=== PATIENT | male | born 1960 | race Caucasian/White ===

== ENCOUNTER 2020-03-17 17:46 | Inpatient (IN) | payer MEDICAID, SELFPAY ==
--- NOTE | ~2020-03-17 | XR_ITS ---
EXAMINATION: XR chest 2V DATE: 03/17/2020 20:40 INDICATION: Sepsis. TECHNIQUE: PA and lateral views of the chest were obtained. COMPARISON: None FINDINGS: Ossified nodules in the right lower lung zone and calcified right hilar lymph nodes consistent with o ld granulomatous disease. No other airspace opacities, pulmonary edema, pleural effusion or pneumotho rax. The cardiomediastinal silhouette is normal. Mild thoracic spondylosis with mild anterior wedging of a few lower thoracic vertebral bodies. IMPRESSION: 1. No acute cardiopulmonary disease. Reviewed, dictated and finalized at location A.
--- NOTE | ~2020-03-17 | XR_ITS ---
EXAMINATION: XR foot LT min 3V DATE: 03/17/2020 20:41 INDICATION: Erythema, swelling and tunneling foot ulcer. TECHNIQUE: Dorsoplantar, two oblique and lateral views of the left foot were obtained. COMPARISON: None. FINDINGS: Alignment is normal. No fracture. Mild osteoarthritis at multiple tarsal metatarsal, metatarsophalang eal and interphalangeal joints. No cortical erosions or periosteal reaction. Moderate-sized Achilles and plantar calcaneal spurs with few additional scattered enthesophytes including at the tip of the l ateral malleolus and base of the fifth metatarsal. Diffuse soft tissue swelling throughout the left f oot. No radiopaque foreign bodies or soft tissue gas. IMPRESSION: 1. 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 Reviewed, dictated and finalized at location A. IMPRESSION: 1. Scattered degenerative changes including mild polyarticular osteoarthritis i n the fore and midfoot and scattered enthesophytes.
[2020-03-17 18:52] VITALS: BP 158/100; PULSE 117; RESP 16; TEMP 36.3; O2SAT 100
[2020-03-17 19:15] LABS: Basophils Absolute Auto 0.1 K/mm3 (0.0-0.1); Basophils Percent Auto 0.4 % (0.2-1.2); Eosinophils Absolute Auto 0.1 K/mm3 (0-0.3); Eosinophils Percent Auto 0.7 % (0-4.4); Hematocrit 42.2 % (42.0-52.0); Hemoglobin 14.5 g/dL (14.0-18.0); Immature Granulocyte Absolute 0.05 K/mm3 (0.00-0.031); Immature Granulocyte Percent A 0.4 % (0-0.5); Lymphocytes Absolute Auto 0.85 K/mm3 (0.9-3.2); Lymphocytes Percent Auto 7.5 % (18.3-44.2); Mean Corpuscular HGB Conc 34.4 g/dl (32-36); Mean Corpuscular Hemoglobin 28.2 pg (26-34); Mean Corpuscular Volume 81.9 fl (80-100); Mean Platelet Volume 10.2 fl (7.4-10.4); Monocytes Absolute Auto 1.1 K/mm3 (0.1-0.6); Monocytes Percent Auto 10.1 % (2.6-8.5); Neutrophils Absolute Auto 9.1 K/mm3 (1.3-6.7); Neutrophils Percent Auto 80.9 % (45.5-73.1); Platelet Count Result 278 k/mm3 (150-375); Red Blood Count 5.15 M/mm3 (4.6-6.20); White Blood Count 11.3 K/mm3 (4.5-10.0)
[2020-03-17 19:38] LABS: Lactic Acid Reflex 1.4 mmol/L (0.7-2.1)
[2020-03-17 19:59] LABS: Alanine Aminotransferase 28 U/L (4-50); Albumin Level 4.1 g/dL (3.5-5.1); Alkaline Phosphatase 93 U/L (38-126); Anion Gap 10 mmol/L (8-16); Aspartate Amino Transferase 34 U/L (17-59); Bilirubin,Total 0.8 mg/dL (0.2-1.3); Blood Urea Nitrogen 15 mg/dL (9-20); CRP 16.4 mg/dL (<1.0); Calcium 9.4 mg/dL (8.4-10.2); Carbon Dioxide 29 mmol/L (22-30); Chloride 96 mmol/L (98-107); Estimated CRCL calculation 129 ml/min; Estimated Glomerular Filt Rate > 60; Glucose 301 mg/dL (75-110); Sodium 135 mmol/L (137-145)
[2020-03-17 23:00] VITALS: BP 154/70; PULSE 105; RESP 19; O2SAT 96
[2020-03-17 23:01] LABS: INR 1.2; Prothrombin Time 14.4 Seconds (11.1-14.7)
[2020-03-17 23:02] LABS: Partial Thromboplastin Time 32.7 SECONDS (22.3-36.8)
[2020-03-18] VITALS (18 sets, daily range): BP systolic 132–186; BP diastolic 81–99; PULSE 85–117; RESP 13–23; TEMP 36–37; O2SAT 96–100
--- NOTE | 2020-03-18 01:18 | ED.WOUNDLAC ---
HPI - Wound/Laceration General Chief Complaint: Wound/Laceration Stated Complaint: tunneling foot ulcer Time Seen by Provider: 03/18/20 01:15 Source: RN notes reviewed History of Present Illness HPI narrative: Patient presents emergency department from home for left foot wound. Patient went to the urgent care today and was referred to the ER for further evaluation states it is been present for approximately the past 1 month and progressively worsened and went to the urgent care today because he began to have swelling of the third toe and redness of the foot. Patient states is been numerous years before he went to a physician and is unsure if he is a diabetic. He denies any fevers or chills chest pain shortness of breath abdominal pain nausea vomiting or any other symptoms Related Data Allergies Allergy/AdvReac Type Severity Reaction Status Date / Time Penicillins Allergy Mild Verified 11/04/10 14:01 Review of Systems Review of Systems: Narrative: Gen.: Denies fevers or chills ENT: Denies congestion Respiratory: Denies shortness of breath or cough CV: Denies chest pain or palpitations GI: Denies abdominal pain nausea, emesis or diarrhea denies burning, urgency, frequency or hematuria Musculoskeletal: Denies back pain or muscle pain Neuro: Denies numbness, tingling, weakness or focal weakness Skin: See HPI Except as documented, all other systems reviewed and negative PMFSH Past Medical History Medical History (Updated 03/18/20 @ 01:36 by Amando Alfaro DO) Patient denies significant medical history Family History Family History (Updated 02/14/14 @ 07:13 by DOCTOR UNKNOWN) Sibling Family history of gallbladder disease Father Family history of chronic obstructive pulmonary disease Mother Family history of heart disease in male family member before age 55 Other Diabetes mellitus Hypertension Social History Social History (Updated 03/18/20 @ 01:19 by Amando Alfaro DO) Smoking status: Never smoker Alcohol intake: current Gender identity (if verbalized by the patient): Male Exam Narrative: Exam Narrative: APPEARANCE: No acute distress, nontoxic, resting in bed EYES: EOMI HEENT: Normocephalic, atraumatic, OMM RESPIRATORY: No respiratory distress Clear to auscultation bilaterally with no rhonchi wheezing or rales. CARDIOVASCULAR: Regular rate and rhythm without murmurs rubs or gallops. ABDOMINAL: Soft, nontender, nondistended, no rebound or guarding MUSCULOSKELETAl: Moves all extremities. No clubbing, cyanosis or edema. Right dorsalis pedis pulse 2+ NEURO: Awake and alert. Following commands, speech normal, no focal deficits SKIN:: Warm, dry. Left foot has a large ulcerated wound over the base of the foot with some purulent drainage there is surrounding erythema and erythema up into the dorsal aspect of the foot does not extend to the ankle the left third toe is diffusely swollen and erythematous PSYCHIATRIC: Normal affect/mood, Course Course Emergency Course: Discussed with Dr. Gerard presentation work-up. Agrees with admission at this time Discussed with Dr. Castillo presentation work-up. Agrees consult this time Discussed with patient and family results of workup and diagnosis. Discussed need for admission. Patient and family understand and agree to current treatment plan Vital Signs Vital signs: Vital Signs Temperature 97.4 F L 03/17/20 18:52 Pulse Rate 117 H 03/17/20 18:52 Respiratory Rate 16 03/17/20 18:52 Blood Pressure 158/100 H 03/17/20 18:52 Pulse Oximetry 100 03/17/20 18:52 Temperature 98.3 F 03/18/20 01:20 Pulse Rate 117 H 03/18/20 01:20 Respiratory Rate 20 03/18/20 01:20 Blood Pressure 141/87 H 03/18/20 01:20 Pulse Oximetry 98 03/18/20 01:20 MDM - Wound/Laceration Lab Data Result diagrams: 03/17/20 18:57 03/17/20 18:57 Labs: Lab Results 03/17/20 03/17/20 03/17/20 Range/Units 18:57 18:57 18:57
[2020-03-18] MEDS: SODIUM CHLORIDE 0.9% IV 1,000 ML 999 ML IV CONT (01:37)
--- NOTE | 2020-03-18 02:23 | ADMGEN ---
This patient, Darin Campos, was admitted to Medical Room 247-. Patient/family oriented to hospital policies and general routines including ID bracelet, bed and alarms, visiting hours, pain management, procedures, bathroom and other care routines, personal items, smoking policy, room service/diet, and visiting hours. Valuables list has been completed. Information on how to activate the Rapid Response Team has been discussed. Patient/Family are encouraged to report perceived risks to care and to ask questions if they do not understand what they are told or what they should do.
[2020-03-18 02:29] LABS: Add Urine Microscopic? YES; Appearance Urine Clear (Clear); Bilirubin Urine Negative (Negative); Blood Urine Negative (Negative); Color Urine Yellow (Yellow); Glucose Urine UA 3+ mg/dL (Negative); Ketones Urine 1+ mg/dL (Negative); Leukocyte Esterase Ur Negative LEU/UL (Negative); Mucus Urine Rare /lpf; Nitrate Urine Negative (Negative); Protein Urine 1+ mg/dL (Negative); RBC Urine 0-2 /hpf (0-2); Specific Grav Ur 1.024 (1.001-1.035); Squamous Epithelial Cell Urine Rare /hpf (Few); WBC Urine 0-3 /hpf
[2020-03-18] MEDS: SODIUM CHLORIDE 0.9% IV 1,000 ML 125 ML IV CONT ×2 (05:16→20:49)
[2020-03-18 07:54] LABS: Glucose Point of Care 300 (65-105)
[2020-03-18] MEDS: INSULIN ASPART (*BKC) 100 UNITS/ML SUB-Q ×3 (08:38→18:15)
[2020-03-18 09:15] LABS: Basophils Percent Auto 0.3 % (0.2-1.2); Eosinophils Absolute Auto 0.1 K/mm3 (0-0.3); Eosinophils Percent Auto 0.8 % (0-4.4); Hematocrit 36.1 % (42.0-52.0); Hemoglobin 12.5 g/dL (14.0-18.0); Immature Granulocyte Absolute 0.06 K/mm3 (0.00-0.031); Immature Granulocyte Percent A 0.6 % (0-0.5); Lymphocytes Absolute Auto 1.18 K/mm3 (0.9-3.2); Lymphocytes Percent Auto 11.3 % (18.3-44.2); Mean Corpuscular HGB Conc 34.6 g/dl (32-36); Mean Corpuscular Hemoglobin 28.4 pg (26-34); Mean Platelet Volume 10.6 fl (7.4-10.4); Monocytes Absolute Auto 1.4 K/mm3 (0.1-0.6); Monocytes Percent Auto 13.2 % (2.6-8.5); Neutrophils Absolute Auto 7.7 K/mm3 (1.3-6.7); Neutrophils Percent Auto 73.8 % (45.5-73.1); Platelet Count Result 237 k/mm3 (150-375); White Blood Count 10.5 K/mm3 (4.5-10.0)
[2020-03-18 09:19] LABS: Anion Gap 5 mmol/L (8-16); Blood Urea Nitrogen 11 mg/dL (9-20); Calcium 8.8 mg/dL (8.4-10.2); Carbon Dioxide 31 mmol/L (22-30); Chloride 98 mmol/L (98-107); Estimated CRCL calculation 129 ml/min; Estimated Glomerular Filt Rate > 60; Glucose 307 mg/dL (75-110); Potassium 3.8 mmol/L (3.4-5.0); Sodium 134 mmol/L (137-145)
--- NOTE | 2020-03-18 09:20 | PM.IMHP ---
H&P: HPI History of Present Illness Date/Time: 03/18/20 09:20 Chief complaint: Left foot cellulitis, left foot wound Narrative: Darin Campos is a 59 year old male With no chronic medical history, has not seen a doctor he in about 13 years, who presented to the emergency room with increased redness, swelling, drainage to his left foot. Patient states he has numbness and tingling to bilateral feet, has never been diagnosed with diabetes before. he is unsure if he had stepped on something or what happened to the bottom of his foot. About 2 months ago he noticed a hole in the bottom of his left foot in began placing a bandage over it daily. About 1 month ago he noticed some thickening to the skin around the whole, some clear drainage, and continue with some home therapy. Then about 2 weeks ago he noticed increased redness, swelling, foul odor, drainage to his left foot as well as 3rd toe. he finally decided to come into the hospital last night. He denies any fevers, chills, chest pain, shortness of breath, cough, nausea, vomiting, abdominal pain, diarrhea, constipation, calf pain, weakness, fatigue, lightheadedness, dizziness, syncope, change in urinary symptoms, or any other symptoms at this time. Initial vitals showed temperature of 97.4?, blood pressure 158/100, heart rate tachycardic at 117, normal respirations and oxygenation 100% on room air. Initial labs showed leukocytosis at 11,000, with a left shift, normal coag panel, slight hyponatremia 134, glucose was 300 on arrival. Hemoglobin A1c is 10.6%. Normal lactic. CRP elevated at 16.4. Urine shows 3+ glucose, 1+ ketones, 1+ protein otherwise no signs of acute UTI. Foot XR showed Scattered degenerative changes including mild polyarticular osteoarthritis in the fore and midfoot and scattered enthesophytes. Patient was admitted into the hospital for IV antibiotics, for cellulitis and diabetic foot wound. He has a consult to surgery for further evaluation. Code status: full code POA: sonOtoniel PCP: None Review of Systems Review of Systems: All systems reviewed & are unremarkable except as noted in HPI and below PMFSH Past Medical History Medical History (Updated 03/18/20 @ 10:14 by Shruti Mathur PA-C) Patient denies significant medical history Surgical History Surgical History (Updated 03/18/20 @ 10:14 by Shruti Mathur PA-C) Hx laparoscopic cholecystectomy Family History Family History (Updated 03/18/20 @ 10:14 by Shruti Mathur PA-C) Sibling Family history of gallbladder disease Father Family history of chronic obstructive pulmonary disease Diabetes mellitus Mother Family history of heart disease in male family member before age 55 Diabetes mellitus Hypertension Heart disease Social History Social History (Updated 03/18/20 @ 10:15 by Shruti Mathur PA-C) Smoking status: Never smoker Alcohol intake: never Substance use: never Substance use type: does not use Living arrangements: alone Additional living arrangements comments: Lives in [place]. Never . 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 Gender identity (if verbalized by the patient): Male Spiritual care concerns: No Meds Home Medications and Allergies Home Medications Medication Instructions Recorded Confirmed Type No Home Medications 03/18/20 03/18/20 History Allergies Allergy/AdvReac Type Severity Reaction Status Date / Time Penicillins Allergy Mild Verified 11/04/10 14:01 Vital Signs Vital Signs - 24 hr 03/17/20 18:52 03/17/20 23:00 03/18/20 01:20 Temperature 97.4 F L 98.3 F Pulse Rate 117 H 105 H 117 H Respiratory Rate 16 19 20 Blood Pressure 158/100 H 154/70 H 141/87 H Pulse Oximetry 100 96 98 03/18/20 01:41 03/18/20 01:59 03/18/20 02:54 Temperature 98.3 F 98.6 F Pulse Rate 108 H 108 H 101 H Respiratory Rate 18 16
--- NOTE | 2020-03-18 09:48 | PM.CNGS ---
Assessment and Plan Assessment and plan (1) Diabetic foot ulcer: Qualifiers: Diabetic foot ulcer location: toe Diabetes mellitus type: type 2 Laterality: left Non-pressure ulcer stage: with fat layer exposed Qualified Code(s): E11.621 - Type 2 diabetes mellitus with foot ulcer; L97.522 - Non-pressure chronic ulcer of other part of left foot with fat layer exposed Code(s): E11.621 - Type 2 diabetes mellitus with foot ulcer; L97.509 - Non-pressure chronic ulcer of other part of unspecified foot with unspecified severity Status: Acute Assessment and Plan: patient has multiple ulcers along the left foot including a 3rd toe ulcer and plantar surface of the forefoot ulcer. I have recommended debridement left diabetic foot ulcers under anesthesia in the operating room. He will require some wound care and possibly a boot to prevent weight-bearing along the forefoot. 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 I discussed with patient that if toe ulcer is more complicated, he could eventually require amputation. Will plan to proceed with surgery today. Patient will be kept NPO and plans for surgery. He has also been started on broad-spectrum IV antibiotics. (2) Cellulitis of foot, left: Code(s): L03.116 - Cellulitis of left lower limb Status: Acute History of Present Illness Consult details Consult date: 03/18/20 Reason for consult: wound care Requesting physician: Amando Alfaro DO Narrative: This is a 59-year-old man who presented to the emergency department last night with a worsening foot infection. He has noticed a wound on his left foot for the past couple months. He has not sought medical attention for this and has been applying bandages on his own at home. He does not routinely see a doctor. He denies any prior history of wounds like this in the past. He does have some signs of peripheral neuropathy as he does not have a whole lot of feeling in both feet. He has never been diagnosed with diabetes before, but his sugars are significantly elevated here in the hospital. He does state that he has been urinating a lot lately and he is thirsty a lot. He denies any history of peripheral vascular disease or heart problems. He denies any fevers or chills. He has noticed that there is redness around his toes and this has been extending up around his foot and ankle. He was having a significant amount of pain in his foot, but this is less today. Review of Systems Review of Systems: All systems reviewed & are unremarkable except as noted in HPI and below Eyes: Eyes: Denies change in vision ENT: Denies hearing loss, Denies neck pain and Denies sore throat Cardiovascular: Cardiovascular: Denies chest pain and Denies dyspnea Respiratory: Respiratory: Denies cough, Denies dyspnea and Denies wheezing Genitourinary: Genitourinary: Denies hematuria and Denies dysuria Musculoskeletal: Musculoskeletal: Denies arthralgias, Denies joint swelling and Denies neck pain Integumentary/Breasts: Skin/Breast: Reports as per HPI Endocrine: Endocrine: Reports polydipsia and Reports polyuria Allergic/Immunologic: Allergic/Immunologic: Denies wheezing PMFSH Past Medical History Medical History Patient denies significant medical history Family History Family History Sibling Family history of gallbladder disease Father Family history of chronic obstructive pulmonary disease Diabetes mellitus Mother Family history of heart disease in male family member before age 55 Diabetes mellitus Hypertension Social History Social History Smoking status: Never smoker Alcohol intake: never Substance use: never Substance use type: does not use Gender identity (if verbalized by the patient): Male Spi
[2020-03-18 09:54] LABS: Hemoglobin A1C 10.6 % (<5.7)
[2020-03-18 11:30] LABS: Glucose Point of Care 290 (65-105)
--- NOTE | 2020-03-18 12:10 | PC.NURSE ---
Patient to OR per bed. 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
[2020-03-18] MEDS: LACTATED RINGERS 1,000 ML 30 ML IV CONT ×2 (12:20→13:41)
--- NOTE | 2020-03-18 12:31 | WPDHPUPDATE1 ---
History and Physical Update Update Date/Time: 03/18/20 12:31 History and Physical has been reviewed, including an updated exam of the patient. There are NO changes in the patient's condition. Risks, benefits, and alternatives have been discussed and questions answered. Patient agrees to proceed with procedure.
[2020-03-18 12:32] LABS: CRP 16.3 mg/dL (<1.0)
--- NOTE | 2020-03-18 12:40 | WPDANESEPPF ---
Anes - Initial Pre Proc Eval Procedure: Operation Date: 03/18/20 14:00 Proposed Procedures p Debridement Left Foot Diabetic Ulcer(Left) - Parish Castillo DO Date/Time: 03/18/20 12:40 Surgeon: Shruti Mathur PA-C Pre Op Diagnosis: Left foot cellulitis, left foot wound Patient Data Age: 59 Gender: M Height: 5 ft 7 in Weight: 129 kg Last Vital Signs Temp 36.3 C L 03/18/20 10:15 Pulse 89 03/18/20 10:15 Resp 18 03/18/20 10:15 BP 163/96 H 03/18/20 10:15 Pulse Ox 99 03/18/20 10:15 Allergies Allergy/AdvReac Type Severity Reaction Status Date / Time Penicillins Allergy Mild Verified 11/04/10 14:01 Home Medications Medication Instructions Recorded Confirmed Type No Home Medications 03/18/20 03/18/20 History Laboratory Tests 03/17/20 03/17/20 03/17/20 18:57 18:57 18:57 WBC 11.3 K/mm3 H K/mm3 (4.5-10.0) RBC 5.15 M/mm3 M/mm3 (4.6-6.20) Hgb 14.5 g/dL g/dL (14.0-18.0) Hct 42.2 % % (42.0-52.0) MCV 81.9 fl fl (80-100) MCH 28.2 pg pg (26-34) MCHC 34.4 g/dl g/dl (32-36) RDW 13.0 % % (11.5-14.5) Plt Count 278 k/mm3 k/mm3 (150-375) MPV 10.2 fl fl (7.4-10.4) Immature Gran % (Auto) 0.4 % % (0-0.5) Neut % (Auto) 80.9 % H % (45.5-73.1) Lymph % (Auto) 7.5 % L % (18.3-44.2) [place] % (Auto) 10.1 % H % (2.6-8.5) Eos % (Auto) 0.7 % % (0-4.4) Baso % (Auto) 0.4 % % (0.2-1.2) Lymph # (Auto) 0.85 K/mm3 L K/mm3 (0.9-3.2) [place] # (Auto) 1.1 K/mm3 H K/mm3 (0.1-0.6) Eos # (Auto) 0.1 K/mm3 K/mm3 (0-0.3) Baso # (Auto) 0.1 K/mm3 K/mm3 (0.0-0.1) Abs Immat Gran (auto) 0.05 K/mm3 H K/mm3 (0.00-0.031) Absolute Neuts (auto) 9.1 K/mm3 H K/mm3 (1.3-6.7) Absolute Nucleated RBC 0.0 K/mm3 K/mm3 (0.0-0.012) Nucleated RBC % 0.0 % % (0.0-0.2) PT INR APTT Sodium 135 mmol/L L mmol/L (137-145) Potassium 4.0 mmol/L mmol/L (3.4-5.0) Chloride 96 mmol/L L mmol/L (98-107) Carbon Dioxide 29 mmol/L mmol/L (22-30) Anion Gap 10 mmol/L mmol/L (8-16) BUN 15 mg/dL mg/dL (9-20) Creatinine 0.70 mg/dL mg/dL (0.7-1.3) Estim Creat Clear Calc 129 ml/min ml/min Estimated GFR > 60 (59 - ) Glucose 301 mg/dL H mg/dL (75-110) POC Capillary Glucose Hemoglobin A1c Lactic Acid 1.4 mmol/L mmol/L (0.7-2.1) Calcium 9.4 mg/dL mg/dL (8.4-10.2) Total Bilirubin 0.8 mg/dL mg/dL (0.2-1.3) AST 34 U/L U/L (17-59) ALT 28 U/L U/L (4-50) Alkaline Phosphatase 93 U/L U/L (38-126) C-Reactive Protein 16.4 mg/dL H mg/dL (<1.0) Total Protein 9.0 g/dL H g/dL (6.3-8.2) Albumin 4.1 g/dL g/dL (3.5-5.1) Urine Color Urine Appearance Urine pH Ur Specific [place] Urine Protein Urine Glucose (UA) Urine Ketones Ur Blood (Man) Urine Nitrate Urine Bilirubin Urine Urobilinogen Leukocyte Esterase Rfl Urine RBC Urine WBC Ur Squamous Epith Cells Urine Mucus 03/17/20 03/18/20 03/18/20 22:39 02:06 07:50 WBC RBC Hgb Hct MCV MCH MCHC RDW Plt Count MPV Immature Gran % (Auto) Neut % (Auto) Lymph % (Auto) [place] % (Auto) Eos % (Auto) Baso % (Auto) Lymph # (Auto) [place] # (Auto) Eos # (Auto) Baso # (
--- NOTE | 2020-03-18 13:30 | P.OP_ITS ---
Procedure Note - Detailed Date of procedure: 03/18/20 Pre-op diagnosis: Left foot cellulitis, left foot wound Post-op diagnosis: same Procedure performed: Sharp excisional debridement of left plantar foot ulcer including skin, fat, and muscle/tendon measuring 4cm x 4cm Description of procedure: * Procedure as well as risks, benefits, and alternatives were discussed with the patient. Written consent was obtained and placed in chart prior to procedure. Patient was brought back to surgical suite. Time-out was done to confirm patient and procedure. General anesthesia was administered by the Anesthesia Department. His left foot was prepped and draped in sterile fashion using Betadine prep. A 15 blade scalpel was used to excise some of the tissue around the left plantar foot wound. The tissue was debrided back to healthy bleeding tissue. The wound appeared to track deep all the way to tendon. After debriding the wound, hemostasis was achieved with electrocautery. The total width of the wound measured 4 cm x 4 cm. The patient also had swelling of his 3rd digit. An incision was made over the medial side of the 3rd digit using a 15 blade scalpel. There did not appear to be any purulence fluid draining from this area. Hemostasis was then achieved with electrocautery. No further infected or necrotic tissue was identified. The wound on the plantar surface was then packed with half-inch iodoform gauze. Xeroform gauze was applied followed by 4 x 4 gauze, Kerlix roll, and tape. Patient was awakened from anesthesia, extubated, and transferred to recovery. [facility] Surgeon: Parish Castillo DO Estimated blood loss (mL): 5 Drains: No Packing: Yes (1/2 iodoform gauze) Pathology: none sent Complications: No immediate complications Condition: stable Disposition: floor Findings: This is a 59-year-old man who presented to the emergency department with a complicated left foot wound. He had been experiencing a wound on his foot for the past 2 months, but recently this worsen. He has not sought medical attention prior to this. He is also a newly diagnosed diabetic and has not been on any prior treatment for hyperglycemia. A deep wound was identified on the plantar surface of his 3rd metatarsal he also had significant swelling of his 3rd toe. Discussions were made with the patient about his treatment options, and decision was made to proceed with debridement of left foot ulcers. Sharp excisional debridement was performed using a 15 blade scalpel. The patient had a significant amount of callus formation around the wound on his plantar surface of his 3rd metatarsal. Sharp debridement was performed of the callus and necrotic tissue along the wound bed. This included skin and subcu fat and some muscle and tendon. The wound was deep enough that there did appear to be some exposed tendon, but there did not appear to be definite signs of exposed bone. There was also a callus along the 1st metatarsal with early signs of an ulcer developing. This was sharply excised also using a 15 blade scalpel. The total area of debridement along the plantar surface of the foot measured 4 cm x 4 cm. His 3rd toe was erythematous and swollen. An incision was made over the medial portion of his 3rd toe using a 15 blade scalpel, but no purulence fluid was drained. Hemostasis was achieved and dressings were applied. No specimens were obtained for pathology.
[2020-03-18 13:38] LABS: Glucose Point of Care 266 (65-105)
[2020-03-18] MEDS: INSULIN HUMAN REGULAR (*BKC) 100 UNITS/ML 8 UNITS SUB-Q (13:58)
--- NOTE | 2020-03-18 15:01 | PC.NURSE ---
Return from OR per bed.
[2020-03-18 16:20] LABS: Glucose Point of Care 270 (65-105)
[2020-03-18 19:33] LABS: Glucose Point of Care 288 (65-105)
[2020-03-18] MEDS: INSULIN GLARGINE (*BKC) 100 UNITS/ML 15 UNITS SUB-Q (20:59)
[2020-03-18 21:30] LABS: Glucose Point of Care 326 (65-105)
[2020-03-19 00:37] VITALS: BP 155/92; PULSE 89; RESP 20; TEMP 36.3; O2SAT 97
[2020-03-19] MEDS: guaiFENesin/DEXTROMETHORPHAN 10 ML UDC 5 ML PO ×2 (01:34→19:14)
[2020-03-19 02:58] LABS: Vancomycin Trough 11.5 ug/mL (10.0-20.0)
[2020-03-19 04:37] VITALS: BP 149/78; PULSE 74; RESP 20; TEMP 36.1; O2SAT 99
[2020-03-19] MEDS: SODIUM CHLORIDE 0.9% IV 1,000 ML 125 ML IV CONT (06:03)
[2020-03-19 06:33] LABS: Basophils Percent Auto 0.3 % (0.2-1.2); Eosinophils Percent Auto 0.1 % (0-4.4); Hematocrit 35.1 % (42.0-52.0); Immature Granulocyte Absolute 0.05 K/mm3 (0.00-0.031); Immature Granulocyte Percent A 0.5 % (0-0.5); Lymphocytes Percent Auto 12.8 % (18.3-44.2); Mean Corpuscular HGB Conc 34.2 g/dl (32-36); Mean Corpuscular Hemoglobin 28.1 pg (26-34); Mean Corpuscular Volume 82.2 fl (80-100); Mean Platelet Volume 10.8 fl (7.4-10.4); Monocytes Percent Auto 10.3 % (2.6-8.5); Neutrophils Absolute Auto 7.1 K/mm3 (1.3-6.7); Platelet Count Result 254 k/mm3 (150-375); Red Blood Count 4.27 M/mm3 (4.6-6.20); Red Cell Distribution Width 12.8 % (11.5-14.5); White Blood Count 9.4 K/mm3 (4.5-10.0)
[2020-03-19 06:41] LABS: Anion Gap 8 mmol/L (8-16); Blood Urea Nitrogen 12 mg/dL (9-20); Calcium 8.5 mg/dL (8.4-10.2); Carbon Dioxide 26 mmol/L (22-30); Chloride 101 mmol/L (98-107); Cholesterol 103 mg/dL (0-200); Estimated CRCL calculation 149 ml/min; Estimated Glomerular Filt Rate > 60; Glucose 298 mg/dL (75-110); HDL Direct 29 mg/dL; Potassium 3.8 mmol/L (3.4-5.0); Sodium 135 mmol/L (137-145); Triglycerides 96 mg/dL (<150)
[2020-03-19 06:48] LABS: LDL Cholesterol Direct 58 mg/dL
[2020-03-19 06:51] LABS: CRP 13.8 mg/dL (<1.0)
[2020-03-19 07:43] LABS: Glucose Point of Care 256 (65-105)
[2020-03-19] MEDS: INSULIN ASPART (*BKC) 100 UNITS/ML SUB-Q ×2 (07:56→11:57)
[2020-03-19] MEDS: ENOXAPARIN 40 MG/0.4 ML SYRINGE SUB-Q (07:59)
[2020-03-19 08:37] VITALS: BP 131/68; PULSE 81; RESP 15; TEMP 36.2; O2SAT 100
[2020-03-19] MEDS: LOSARTAN POTASSIUM 50 MG TABLET PO (09:07)
[2020-03-19] MEDS: metFORMIN HCL 500 MG TABLET PO ×2 (09:07→16:52)
--- NOTE | 2020-03-19 11:06 | PM.IMPN ---
Progress Note: A&P Assessment and Plan (1) Diabetic foot ulcer: Qualifiers: Diabetic foot ulcer location: toe Diabetes mellitus type: type 2 Laterality: left Non-pressure ulcer stage: with fat layer exposed Qualified Code(s): E11.621 - Type 2 diabetes mellitus with foot ulcer; L97.522 - Non-pressure chronic ulcer of other part of left foot with fat layer exposed Code(s): E11.621 - Type 2 diabetes mellitus with foot ulcer; L97.509 - Non-pressure chronic ulcer of other part of unspecified foot with unspecified severity Status: Acute Assessment and Plan: had wound to his distal left foot for 2 months that was left untreated without follow-up. Now with worsening erythema, edema, warmth to plantar, dorsal aspect of foot as well as 3rd phalange. patient was started on broad-spectrum antibiotics with IV Primaxin and vancomycin due to new onset diabetes blood cultures show no growth at this time and wound cultures show moderate WBCs, and gram positive cocci in chains and mixed bacteria iglesia And pending final results surgery took him to the OR for sharp excisional debridement of left plantar foot ulcer including skin, fat, and muscle/tendon measuring 4cm x 4cm Talked to Infectious Disease, [place] about consult and antibiotic recommendations and he will consult. Awaiting recommendations. Continue monitoring patient's symptoms, pain control, monitoring of blood and wound cultures. (2) Cellulitis of foot, left: Code(s): L03.116 - Cellulitis of left lower limb Status: Acute Assessment and Plan: See above. (3) Diabetes mellitus, new onset: Code(s): E11.9 - Type 2 diabetes mellitus without complications Status: Inactive Assessment and Plan: New onset diabetes with a hemoglobin A1c of 10.6%. Patient also having symptoms of neuropathy. Will start him on sliding scale insulin Will increase Lantus to 20 Units tonight Started Metformin 500 mg BID art educator and dietitian were consulted continue monitoring glucose ACHS. sliding scale insulin. hypoglycemic protocol in place. (4) Elevated blood pressure reading: Code(s): R03.0 - Elevated blood-pressure reading, without diagnosis of hypertension Status: Acute Assessment and Plan: Patient's blood pressure has been elevated since arrival. He has never been diagnosed with hypertension in the past. BP still elevated 150-160's systolic. Started Losartan 50 mg daily. Continue monitoring BP. (5) Venous stasis of both lower extremities: Code(s): I87.8 - Other specified disorders of veins Status: Acute Assessment and Plan: appears to have venous stasis changes to bilateral lower extremities. Good pulses palpated. fasting lipid panel showed his total cholesterol, triglycerides, LDL and HDL were all within normal limits. Time Spent With Patient Time with patient: 25 - 35 minutes Subjective Date/time seen: 03/19/20 11:06 Interval history: Date of service 03/19/2020: patient states he is feeling much better today after his debridement surgery yesterday. he is eating hearing any issues. He has been walking to and from the bathroom without any complications. States his leg swelling has gone down to the left side. he reports a dry cough, which is caused by some postnasal drip and intermittent phlegm production, that he states is worse at night when he goes to sleep. He states he gets this every year and the same time. He denies any chest pain, shortness of breath, fever, chills, Nausea, vomiting, abdominal pain, diarrhea, leg swelling, calf pain or any other symptoms at this time. Review of Systems Review of Systems: Kvng
--- NOTE | 2020-03-19 11:28 | PCDIET ---
Physician consult for new onset of DM. Patient seen today. See Nutritional Teaching Interventions. Thank you for the consult.
[2020-03-19 12:07] LABS: Glucose Point of Care 245 (65-105)
--- NOTE | 2020-03-19 12:55 | PM.PNGS ---
Progress Note: A&P Assessment and Plan (1) Diabetic foot ulcer: Qualifiers: Diabetic foot ulcer location: toe Diabetes mellitus type: type 2 Laterality: left Non-pressure ulcer stage: with fat layer exposed Qualified Code(s): E11.621 - Type 2 diabetes mellitus with foot ulcer; L97.522 - Non-pressure chronic ulcer of other part of left foot with fat layer exposed Code(s): E11.621 - Type 2 diabetes mellitus with foot ulcer; L97.509 - Non-pressure chronic ulcer of other part of unspecified foot with unspecified severity Status: Acute Assessment and Plan: Will have wound care nurses assess for proper daily dressing changes. Offload pressure on forefoot to allow healing. Continue strict blood glucose control. (2) Cellulitis of foot, left: Code(s): L03.116 - Cellulitis of left lower limb Status: Acute Subjective Subjective Date/Time Seen: 03/19/20 12:55 Doing well on POD#1. Not much pain. Blood sugars still high. No fevers. Exam Skin: Other: Left foot metatarsal wound examined--no purulent drainage, still erythematous around forefoot, 2+pitting edema on foot. Objective Data Vital Signs Vital Signs: Vital Signs - 24 hr 03/18/20 13:28 03/18/20 13:40 03/18/20 13:55 Temperature 36.3 C L Pulse Rate 96 89 87 Respiratory Rate 16 18 13 Blood Pressure 140/81 132/83 147/81 H Pulse Oximetry 99 100 98 03/18/20 14:10 03/18/20 14:25 03/18/20 14:40 Temperature Pulse Rate 85 87 86 Respiratory Rate 23 H 23 H 14 Blood Pressure 140/85 148/87 H 149/92 H Pulse Oximetry 97 96 96 03/18/20 15:00 03/18/20 15:15 03/18/20 15:45 Temperature 36.0 C L 36.2 C L 36.1 C L Pulse Rate 86 93 89 Respiratory Rate 16 18 18 Blood Pressure 163/92 H 151/99 H 173/97 H Pulse Oximetry 100 99 100 03/18/20 16:45 03/18/20 20:37 03/19/20 00:37 Temperature 36.2 C L 36.4 C L 36.3 C L Pulse Rate 93 87 89 Respiratory Rate 18 22 H 20 Blood Pressure 186/91 H 153/92 H 155/92 H Pulse Oximetry 99 100 97 03/19/20 04:37 03/19/20 08:37 Temperature 36.1 C L 36.2 C L Pulse Rate 74 81 Respiratory Rate 20 15 Blood Pressure 149/78 H 131/68 Pulse Oximetry 99 100 Intake/Output Intake/Output: Intake & Output 03/16/20 03/17/20 03/18/20 03/19/20 23:59 23:59 23:59 23:59 Intake Total 4010 3120 Output Total 2175 2500 Balance 1835 620 Meds/Results Medications: Active Medications Generic Name Dose Route Start Last Admin Trade Name Freq PRN Reason Stop Dose Admin Acetaminophen 500 mg 03/18/20 14:52 Tylenol Tablet PO Q6H PRN Mild Pain (1-3) or Fever Hydrocodone Bitart/Acetaminophen 1 tab 03/18/20 14:52 [place] 5-325 Mg PO Q4H PRN Pain Rated 4-6 Hydrocodone Bitart/Acetaminophen 1 tab 03/18/20 14:52 [place] 7.5-325 Mg PO Q4H PRN Pain Rated 7-10 Albuterol 2 puff 03/18/20 23:43 Proventil Hfa INHALATION QIDRT PRN Shortness Of Breath Atorvastatin Calcium 40 mg 03/19/20 21:00 Lipitor PO HS SAMANTHA Dextrose 12.5 gm 03/18/20 10:25 Dextrose 50% Syringe IV PUSH PRN PRN Hypoglycemia Protocol Enoxaparin Sodium 40 mg 03/19/20 09:00 03/19/20 07:59 Lovenox SUB-Q 40 mg DAILY SAMANTHA Administration Glucagon 1 mg 03/18/20 10:25 Glucagon For Inj IM PRN PRN Hypoglycemia Protocol Glucose 15 gm 03/18/20 10:25 Glutose 15 PO PRN PRN Hypoglycemia Protocol Guaifenesin/Dextromethorphan 5 ml 03/19/20 11:12 Robitussin-Dm Syrup PO Q4H PRN Cough Imipenem/Cilastatin Sodium 500 mg in 100 mls @ 300 mls/hr 03/18/20 06:30 03/19/20 12:03 Primaxin 500 Mg/D5w 100 Ml IVPB 300 mls/hr Q6HR SAMANTHA Administration Dextrose 1,000 mls @ 100 mls/hr 09/29/20 10:25 Dextrose 5% 1,000 Ml IVPB PRN PRN Hypoglycemia Protocol Vancomycin HCl 1,750 mg in 500 mls @ 250 mls/hr 03/19/20 09:00 03/19/20 10:48 Vancomycin 1,750 Mg/D5w 500 Ml IVPB Inf
--- NOTE | 2020-03-19 13:02 | WPDANESPN ---
Anes - Prog Note Post-Op Date/Time: 03/19/20 13:02 Cardiovascular status: normal Respiratory status: normal Airway patency: baseline Mental status: baseline Post-Op hydration status: normal Vital Signs: Last Vital Signs Temp 36.2 C L 03/19/20 08:37 Pulse 81 03/19/20 08:37 Resp 15 03/19/20 08:37 BP 131/68 03/19/20 08:37 Pulse Ox 100 03/19/20 08:37 Pain Score (VAS): 0/10. Patient resting in bed at time of assessment, appears comfortable. No additional issues or concerns addressed by patient at time of assessment. I/O: Intake & Output 03/18/20 03/19/20 03/19/20 23:59 07:59 15:59 Intake Total 2110 2280 840 Output Total 975 2500 Balance 1135 -220 840 Laboratory Tests 03/19/20 05:58 03/19/20 05:58 03/18/20 03/18/20 03/18/20 13:36 16:18 18:15 WBC RBC Hgb Hct MCV MCH MCHC RDW Plt Count MPV Immature Gran % (Auto) Neut % (Auto) Lymph % (Auto) [place] % (Auto) Eos % (Auto) Baso % (Auto) Lymph # (Auto) [place] # (Auto) Eos # (Auto) Baso # (Auto) Abs Immat Gran (auto) Absolute Neuts (auto) Absolute Nucleated RBC Nucleated RBC % Sodium Potassium Chloride Carbon Dioxide Anion Gap BUN Creatinine Estim Creat Clear Calc Estimated GFR Glucose POC Capillary Glucose 266 H 270 H 288 H Calcium C-Reactive Protein Triglycerides Cholesterol LDL Cholesterol Direct HDL Direct Vancomycin Trough 03/18/20 03/19/20 03/19/20 20:51 01:31 05:58 WBC 9.4 RBC 4.27 L Hgb 12.0 L Hct 35.1 L MCV 82.2 MCH 28.1 MCHC 34.2 RDW 12.8 Plt Count 254 MPV 10.8 H Immature Gran % (Auto) 0.5 Neut % (Auto) 76.0 H Lymph % (Auto) 12.8 L [place] % (Auto) 10.3 H Eos % (Auto) 0.1 Baso % (Auto) 0.3 Lymph # (Auto) 1.20 [place] # (Auto) 1.0 H Eos # (Auto) 0.0 Baso # (Auto) 0.0 Abs Immat Gran (auto) 0.05 H Absolute Neuts (auto) 7.1 H Absolute Nucleated RBC 0.0 Nucleated RBC % 0.0 Sodium Potassium Chloride Carbon Dioxide Anion Gap BUN Creatinine Estim Creat Clear Calc Estimated GFR Glucose POC Capillary Glucose 326 H Calcium C-Reactive Protein Triglycerides Cholesterol LDL Cholesterol Direct HDL Direct Vancomycin Trough 11.5 03/19/20 03/19/20 03/19/20 05:58 07:40 11:45 WBC RBC Hgb Hct MCV MCH MCHC RDW Plt Count MPV Immature Gran % (Auto) Neut % (Auto) Lymph % (Auto) [place] % (Auto) Eos % (Auto) Baso % (Auto) Lymph # (Auto) [place] # (Auto) Eos # (Auto) Baso # (Auto) Abs Immat Gran (auto) Absolute Neuts (auto) Absolute Nucleated RBC Nucleated RBC % Sodium 135 L Potassium 3.8 Chloride 101 Carbon Dioxide 26 Anion Gap 8 BUN 12 Creatinine 0.60 L Estim Creat Clear Calc 149 Estimated GFR > 60 Glucose 298 H POC Capillary Glucose 256 H 245 H Calcium 8.5 C-Reactive Protein 13.8 H Triglycerides 96 Cholesterol 103 LDL Cholesterol Direct 58 HDL Direct 29 Vancomycin Trough Microbiology 03/18/20 01:36 Abscess Anaerobic Culture - Preliminary 03/18/20 01:36 Abscess Aerobic Culture - Preliminary Group B Streptococcus isolated 03/18/20 01:49 Blood Blood Culture - Preliminary 03/18/20 01:49 Blood Blood Culture - Preliminary 03/17/20 22:39 Blood Blood Culture - Preliminary 03/17/20 22:39 Blood Blood Culture - Preliminary Post-procedural complaints: none Patient Feedback: Patient satisfied with anesthetic care.
[2020-03-19 14:00] VITALS: BP 141/87; PULSE 89; RESP 18; TEMP 36; O2SAT 100
[2020-03-19 16:39] LABS: Glucose Point of Care 193 (65-105)
[2020-03-19 18:00] VITALS: BP 151/90; PULSE 87; RESP 20; TEMP 36.1; O2SAT 100
[2020-03-19] MEDS: ATORVASTATIN 40 MG TABLET PO (20:54)
[2020-03-19] MEDS: INSULIN GLARGINE (*BKC) 100 UNITS/ML 20 UNITS SUB-Q (20:59)
[2020-03-19 22:09] VITALS: BP 160/95; PULSE 111; RESP 22; TEMP 36.4; O2SAT 98
[2020-03-19 22:12] LABS: Glucose Point of Care 271 (65-105)
[2020-03-20 06:06] VITALS: BP 160/94; PULSE 84; RESP 20; TEMP 37.2; O2SAT 98
[2020-03-20 07:48] LABS: Glucose Point of Care 185 (65-105)
[2020-03-20 08:35] LABS: Hemoglobin 12.7 g/dL (14.0-18.0); Mean Corpuscular HGB Conc 34.3 g/dl (32-36); Mean Corpuscular Hemoglobin 27.7 pg (26-34); Mean Corpuscular Volume 80.6 fl (80-100); Mean Platelet Volume 10.1 fl (7.4-10.4); Platelet Count Result 296 k/mm3 (150-375); Red Blood Count 4.59 M/mm3 (4.6-6.20); Red Cell Distribution Width 12.9 % (11.5-14.5); White Blood Count 8.5 K/mm3 (4.5-10.0)
[2020-03-20 08:51] LABS: Anion Gap 7 mmol/L (8-16); Blood Urea Nitrogen 12 mg/dL (9-20); CRP 6.1 mg/dL (<1.0); Calcium 8.9 mg/dL (8.4-10.2); Carbon Dioxide 29 mmol/L (22-30); Chloride 102 mmol/L (98-107); Estimated CRCL calculation 149 ml/min; Estimated Glomerular Filt Rate > 60; Glucose 198 mg/dL (75-110); Potassium 3.7 mmol/L (3.4-5.0); Sodium 138 mmol/L (137-145)
[2020-03-20] MEDS: ENOXAPARIN 40 MG/0.4 ML SYRINGE SUB-Q (08:54)
[2020-03-20] MEDS: metFORMIN HCL 500 MG TABLET PO ×2 (08:54→16:49)
[2020-03-20] MEDS: LOSARTAN POTASSIUM 50 MG TABLET PO (08:54)
[2020-03-20 09:17] LABS: Vancomycin Trough 19.8 ug/mL (10.0-20.0)
[2020-03-20 09:29] VITALS: BP 177/91; PULSE 89; RESP 18; TEMP 35.9; O2SAT 99
[2020-03-20] MEDS: INSULIN ASPART (*BKC) 100 UNITS/ML SUB-Q (11:46)
[2020-03-20 11:55] LABS: Glucose Point of Care 204 (65-105)
[2020-03-20 14:00] VITALS: BP 155/84; PULSE 81; RESP 20; TEMP 36.3; O2SAT 100
--- NOTE | 2020-03-20 14:12 | WPDINFPN2 ---
Progress Note: A&P Assessment and Plan (1) Diabetic foot ulcer: Qualifiers: Diabetic foot ulcer location: toe Diabetes mellitus type: type 2 Laterality: left Non-pressure ulcer stage: with fat layer exposed Qualified Code(s): E11.621 - Type 2 diabetes mellitus with foot ulcer; L97.522 - Non-pressure chronic ulcer of other part of left foot with fat layer exposed Code(s): E11.621 - Type 2 diabetes mellitus with foot ulcer; L97.509 - Non-pressure chronic ulcer of other part of unspecified foot with unspecified severity Status: Acute Assessment and Plan: Infected foot ulcer REC Vanc #4, oral therapy tomorrow once susceptibilities return Subjective Date/time seen: 03/20/20 14:12 Objective Data Vital Signs Vital Signs: Vital Signs - 24 hr 03/19/20 18:00 03/19/20 22:09 03/20/20 06:06 Temperature 36.1 C L 36.4 C 37.2 C Pulse Rate 87 111 H 84 Respiratory Rate 20 22 H 20 Blood Pressure 151/90 H 160/95 H 160/94 H Pulse Oximetry 100 98 98 03/20/20 09:29 Temperature 35.9 C L Pulse Rate 89 Respiratory Rate 18 Blood Pressure 177/91 H Pulse Oximetry 99 Intake/Output Intake/Output: Intake & Output 03/17/20 03/18/20 03/19/20 03/20/20 23:59 23:59 23:59 23:59 Intake Total 4010 4700 1970 Output Total 2175 3050 2050 Balance 1835 1650 -80 Meds/Results Medications: Active Medications Generic Name Dose Route Start Last Admin Trade Name Freq PRN Reason Stop Dose Admin Acetaminophen 500 mg 03/18/20 14:52 Tylenol Tablet PO Q6H PRN Mild Pain (1-3) or Fever Hydrocodone Bitart/Acetaminophen 1 tab 03/18/20 14:52 [place] 5-325 Mg PO Q4H PRN Pain Rated 4-6 Hydrocodone Bitart/Acetaminophen 1 tab 03/18/20 14:52 [place] 7.5-325 Mg PO Q4H PRN Pain Rated 7-10 Albuterol 2 puff 03/18/20 23:43 Proventil Hfa INHALATION QIDRT PRN Shortness Of Breath Atorvastatin Calcium 40 mg 03/19/20 21:00 03/19/20 20:54 Lipitor PO 40 mg HS SAMANTHA Administration Dextrose 12.5 gm 03/18/20 10:25 Dextrose 50% Syringe IV PUSH PRN PRN Hypoglycemia Protocol Enoxaparin Sodium 40 mg 03/19/20 09:00 03/20/20 08:54 Lovenox SUB-Q 40 mg DAILY SAMANTHA Administration Glucagon 1 mg 03/18/20 10:25 Glucagon For Inj IM PRN PRN Hypoglycemia Protocol Glucose 15 gm 03/18/20 10:25 Glutose 15 PO PRN PRN Hypoglycemia Protocol Guaifenesin/Dextromethorphan 5 ml 03/19/20 11:12 03/19/20 19:14 Robitussin-Dm Syrup PO 5 ml Q4H PRN Administration Cough Imipenem/Cilastatin Sodium 500 mg in 100 mls @ 300 mls/hr 03/18/20 06:30 03/20/20 13:15 Primaxin 500 Mg/D5w 100 Ml IVPB Infused Q6HR SAMANTHA Infusion Dextrose 1,000 mls @ 100 mls/hr 03/18/20 10:25 Dextrose 5% 1,000 Ml IVPB PRN PRN Hypoglycemia Protocol Vancomycin HCl 1,750 mg in 500 mls @ 250 mls/hr 03/19/20 09:00 03/20/20 12:50 Vancomycin 1,750 Mg/D5w 500 Ml IVPB Infused Q8H SAMANTHA Infusion Insulin Aspart 4 - 7 units 03/19/20 07:25 03/20/20 11:46 Novolog SUB-Q 4 units TIDWM SAMANTHA Administration Protocol Insulin Glargine 25 units 03/20/20 21:00 Lantus SUB-Q HS SAMANTHA Losartan Potassium 50 mg 03/19/20 09:00 03/20/20 08:54 Cozaar PO 50 mg DAILY SAMANTHA Administration Metformin HCl 500 mg 03/19/20 08:00 03/20/20 08:54 Glucophage PO 500 mg BIDWM SAMANTHA Administration Ondansetron HCl 4 mg 03/18/20 14:52 Zofran Inj IV PUSH Q4H PRN Nausea And Vomiting Radiology Results: ITS Impressions Chest X-Ray 03/17/20 20:50 IMPRESSION: 1. No acute cardiopulmonary disease. Foot X-Ray 03/17/20 20:52 IMPRESSION: 1. 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 Labs Labs: Laboratory Results - last 24 hr 03/19/20 03/19/20 03/20/20 16:37 20:50 0
--- NOTE | 2020-03-20 15:22 | CONS_ITS ---
DATE OF CONSULTATION: 03/20/2020 REASON FOR CONSULTATION: Foot ulcer. HISTORY OF PRESENT ILLNESS: A 59-year-old male who has known diabetes, but has not been adherent with followup nor treatment. He was admitted to the hospital on March 17 with 2 months of ulcer, left foot plantar aspect with drainage that became worse in the last 2 weeks. Also redness, odor, and swelling of the 3rd toe. Here he was found to have marked hyperglycemia as well as cellulitis. He was admitted. He has been given imipenem and vancomycin. He was taken to the operating room on the day of admission. We had sharp excisional debridement of a left plantar foot ulcer down to muscle and tendon, some necrotic tissue was encountered. No pus and no gross evidence of osteomyelitis. Consultation now requested. No fever, chills, sweats, or recent antibiotics otherwise. ALLERGIES: PENICILLIN CAUSED HIVES. HE TOLERATES THE CARBAPENEM. HABITS: No tobacco. No alcohol. FAMILY HISTORY: Positive for diabetes. PRESENT MEDICATIONS: List reviewed. No immunosuppressants. PAST MEDICAL HISTORY: Cholecystectomy. Denies other chronic medical illnesses. SOCIAL HISTORY: On the [employer], lives alone in [place]. REVIEW OF SYSTEMS: Endocrine, constitutional, skin, musculoskeletal, GI, respiratory otherwise negative. PHYSICAL EXAMINATION: GENERAL: This is a middle-aged male who appears his actual age. No respiratory distress. VITAL SIGNS: Afebrile since arrival, 177/91, 89, 18, 99% on room air. SKIN: No generalized rashes. EENT: The conjunctivae are normal. Pupils equal, round, and reactive to light. The oropharynx, oral mucosa normal. NECK: No meningismus, mass or tenderness. LUNGS: Clear to auscultation and percussion. CARDIAC: Regular rate and rhythm. Normal S1, S2. He has no murmurs. Dorsalis pedis pulses are 2+ and equal. ABDOMEN: Nontender, soft. No organomegaly. No masses. EXTREMITIES: He has a wound VAC in place, left plantar foot. No surrounding erythema. No abnormalities dorsally. He has diminished light touch sensation. Right foot is bland. LABORATORY DATA: Wound culture with group B strep and Staph aureus, susceptibilities to be determined. Blood cultures, no growth so far, both on the and from the . White count 8.5, hemoglobin 12.7, platelets 296. A1c 10%. Accu-Cheks 100 to 200s. BUN, creatinine normal. Vancomycin trough is 19.8. RADIOLOGY: Foot x-ray, degenerative changes only. ASSESSMENT: 1. Infected diabetic foot ulcer with cellulitis, no abscess, no osteomyelitis. 2. Diabetes mellitus, type 2, poor control. 3. Penicillin allergy. RECOMMENDATIONS: 1. Continue vancomycin use as monotherapy. 2. Follow up on susceptibilities and anticipate oral therapy tomorrow for 12 additional days. Thank you very much for asking me to see him. NAZ ROSAS M.D. DIE ASSEMBLER DIE ASSEMBLER D I MT: [place]
--- NOTE | 2020-03-20 15:22 | PM.IMPN ---
Progress Note: A&P Assessment and Plan (1) Diabetic foot ulcer: Qualifiers: Diabetes mellitus type: type 2 Diabetic foot ulcer location: toe Laterality: left Non-pressure ulcer stage: with fat layer exposed Qualified Code(s): E11.621 - Type 2 diabetes mellitus with foot ulcer; L97.522 - Non-pressure chronic ulcer of other part of left foot with fat layer exposed Code(s): E11.621 - Type 2 diabetes mellitus with foot ulcer; L97.509 - Non-pressure chronic ulcer of other part of unspecified foot with unspecified severity Status: Acute Assessment and Plan: had wound to his distal left foot for 2 months that was left untreated without follow-up. Now with worsening erythema, edema, warmth to plantar, dorsal aspect of foot as well as 3rd phalange. patient was started on broad-spectrum antibiotics with IV Primaxin and vancomycin due to new onset diabetes surgery took him to the OR 03/18/2020 for sharp excisional debridement of left plantar foot ulcer including skin, fat, and muscle/tendon measuring 4cm x 4cm blood cultures show no growth at this time Wound cultures came back growing Staph Aureus and Group B Strep. Dr. Regalado Infectious Disease discontinued IV Primaxin and continued IV Vanc until sensitivities return and will recommend antibiotic and length of administration. CRP is decreasing with IV antibiotics and post surgery. Continue monitoring patient's symptoms, pain control, monitoring of blood and wound cultures. (2) Cellulitis of foot, left: Code(s): L03.116 - Cellulitis of left lower limb Status: Acute Assessment and Plan: See above. (3) Diabetes mellitus, new onset: Code(s): E11.9 - Type 2 diabetes mellitus without complications Status: Inactive Assessment and Plan: New onset diabetes with a hemoglobin A1c of 10.6%. Patient also having symptoms of neuropathy. Will start him on sliding scale insulin Will increase Lantus to 25 Units tonight Continue Metformin 500 mg BID community educator and dietitian were consulted continue monitoring glucose ACHS. sliding scale insulin. hypoglycemic protocol in place. (4) Elevated blood pressure reading: Code(s): R03.0 - Elevated blood-pressure reading, without diagnosis of hypertension Status: Acute Assessment and Plan: Patient's blood pressure has been elevated since arrival. He has never been diagnosed with hypertension in the past. BP still elevated 150-160's systolic. Will increase Losartan to 100 mg daily. Continue monitoring BP. (5) Venous stasis of both lower extremities: Code(s): I87.8 - Other specified disorders of veins Status: Acute Assessment and Plan: appears to have venous stasis changes to bilateral lower extremities. Good pulses palpated. fasting lipid panel showed his total cholesterol, triglycerides, LDL and HDL were all within normal limits. Will start him on Atorvastatin since he has diabetes 40 mg HS. Time Spent With Patient Time with patient: 25 - 35 minutes Subjective Date/time seen: 03/20/20 15:22 Interval history: Date of service 03/20/2020: patient states he is feeling much better today. He now has a wound VAC in place over his foot wound and is feeling well. He has to wear a boot when he walks and he says his skin room without any issues. States his leg swelling has gone down to the left side. he reports a dry cough, which is caused by some postnasal drip and intermittent phlegm production, that he states is worse at night when he goes to sleep. He states he gets this every year and the same time. He denies any chest pain, shortness of breath, fever, chills, Nausea, vomitin
[2020-03-20 16:58] LABS: Glucose Point of Care 167 (65-105)
[2020-03-20 18:05] VITALS: BP 155/93; PULSE 86; RESP 18; TEMP 36.5; O2SAT 98
[2020-03-20] MEDS: ATORVASTATIN 40 MG TABLET PO (21:58)
[2020-03-20 22:00] VITALS: BP 176/90; PULSE 80; RESP 16; TEMP 36.4; O2SAT 100
[2020-03-20] MEDS: INSULIN GLARGINE (*BKC) 100 UNITS/ML 25 UNITS SUB-Q (22:01)
[2020-03-21 01:33] LABS: Glucose Point of Care 193 (65-105)
[2020-03-21] MEDS: guaiFENesin/DEXTROMETHORPHAN 10 ML UDC 5 ML PO (01:33)
[2020-03-21 01:55] VITALS: BP 157/95; PULSE 81; RESP 16; TEMP 36.5; O2SAT 100
[2020-03-21 05:59] VITALS: BP 158/91; PULSE 78; RESP 16; TEMP 36; O2SAT 100
[2020-03-21 07:43] LABS: Glucose Point of Care 165 (65-105)
[2020-03-21] MEDS: ENOXAPARIN 40 MG/0.4 ML SYRINGE SUB-Q (08:05)
[2020-03-21] MEDS: metFORMIN HCL 500 MG TABLET PO (08:05)
[2020-03-21] MEDS: LOSARTAN POTASSIUM 100 MG TABLET PO (08:06)
[2020-03-21 10:00] VITALS: BP 168/90; PULSE 78; RESP 15; TEMP 36.4; O2SAT 100
[2020-03-21 10:27] VITALS: O2SAT 98
[2020-03-21 11:41] LABS: Glucose Point of Care 201 (65-105)
[2020-03-21] MEDS: INSULIN ASPART (*BKC) 100 UNITS/ML SUB-Q (11:47)
--- NOTE | 2020-03-21 13:25 | PM.PNGS ---
Progress Note: A&P Assessment and Plan (1) Diabetic foot ulcer: Qualifiers: Diabetic foot ulcer location: toe Diabetes mellitus type: type 2 Laterality: left Non-pressure ulcer stage: with fat layer exposed Qualified Code(s): E11.621 - Type 2 diabetes mellitus with foot ulcer; L97.522 - Non-pressure chronic ulcer of other part of left foot with fat layer exposed Code(s): E11.621 - Type 2 diabetes mellitus with foot ulcer; L97.509 - Non-pressure chronic ulcer of other part of unspecified foot with unspecified severity Status: Acute Assessment and Plan: Discussed wound care with Wound Care Nurse. Since patient does not have insurance and cannot afford a wound vac for the foreseeable future, will remove wound vac today and apply silver gel with gauze dressings. Patient will need to continue daily wound care at home. Follow up in my office for wound check in 2 weeks. OK to discharge today. (2) Cellulitis of foot, left: Code(s): L03.116 - Cellulitis of left lower limb Status: Acute Subjective Subjective Date/Time Seen: 03/21/20 13:[address] Minimal drainage. Redness and swelling improving. Exam Skin: Other: Wound vac in place Objective Data Vital Signs Vital Signs: Vital Signs - 24 hr 03/20/20 14:00 03/20/20 18:05 03/20/20 22:00 Temperature 36.3 C L 36.5 C 36.4 C Pulse Rate 81 86 80 Respiratory Rate 20 18 16 Blood Pressure 155/84 H 155/93 H 176/90 H Pulse Oximetry 100 98 100 03/21/20 01:55 03/21/20 05:59 03/21/20 10:00 Temperature 36.5 C 36.0 C L 36.4 C Pulse Rate 81 78 78 Respiratory Rate 16 16 15 Blood Pressure 157/95 H 158/91 H 168/90 H Pulse Oximetry 100 100 100 03/21/20 10:27 Temperature Pulse Rate Respiratory Rate Blood Pressure Pulse Oximetry 98 Intake/Output Intake/Output: Intake & Output 03/18/20 03/19/20 03/20/20 03/21/20 23:59 23:59 23:59 23:59 Intake Total 4010 4700 3710 1690 Output Total 2175 3050 2950 1475 Balance 1835 1650 760 215 Meds/Results Medications: Active Medications Generic Name Dose Route Start Last Admin Trade Name Freq PRN Reason Stop Dose Admin Acetaminophen 500 mg 03/18/20 14:52 Tylenol Tablet PO Q6H PRN Mild Pain (1-3) or Fever Hydrocodone Bitart/Acetaminophen 1 tab 03/18/20 14:52 Kimper 5-325 Mg PO Q4H PRN Pain Rated 4-6 Hydrocodone Bitart/Acetaminophen 1 tab 03/18/20 14:52 Kimper 7.5-325 Mg PO Q4H PRN Pain Rated 7-10 Albuterol 2 puff 03/18/20 23:43 Proventil Hfa INHALATION QIDRT PRN Shortness Of Breath Atorvastatin Calcium 40 mg 03/19/20 21:00 03/20/20 21:58 Lipitor PO 40 mg HS SAMANTHA Administration Dextrose 12.5 gm 03/18/20 10:25 Dextrose 50% Syringe IV PUSH PRN PRN Hypoglycemia Protocol Enoxaparin Sodium 40 mg 03/19/20 09:00 03/21/20 08:05 Lovenox SUB-Q 40 mg DAILY SAMANTHA Administration Glucagon 1 mg 03/18/20 10:25 Glucagon For Inj IM PRN PRN Hypoglycemia Protocol Glucose 15 gm 03/18/20 10:25 Glutose 15 PO PRN PRN Hypoglycemia Protocol Guaifenesin/Dextromethorphan 5 ml 03/19/20 11:12 03/21/20 01:33 Robitussin-Dm Syrup PO 5 ml Q4H PRN Administration Cough Dextrose 1,000 mls @ 100 mls/hr 03/18/20 10:25 Dextrose 5% 1,000 Ml IVPB PRN PRN Hypoglycemia Protocol Vancomycin HCl 1,750 mg in 500 mls @ 250 mls/hr 03/19/20 09:00 03/21/20 11:30 Vancomycin 1,750 Mg/D5w 500 Ml IVPB Infused Q8H SAMANTHA Infusion Insulin Aspart 4 - 7 units 03/19/20 07:25 03/21/20 11:47 Novolog SUB-Q 4 units TIDWM SAMANTHA Administration Protocol Insulin Glargine 25 units 03/20/20 21:00 03/20/20 22:01 Lantus SUB-Q 25 units HS SAMANTHA Administration Losartan Potassium 100 mg 03/21/20 09:00 03/21/20 08:06 Cozaar PO 100 mg DAILY SAMANTHA Administration Metformin HCl 500 mg 03/19/20 08:00 03/21/20
[2020-03-21 14:00] VITALS: BP 164/92; PULSE 89; RESP 17; TEMP 36.3; O2SAT 100
--- NOTE | 2020-03-21 15:19 | WPDINFPN2 ---
Progress Note: A&P Assessment and Plan (1) Diabetic foot ulcer: Qualifiers: Diabetic foot ulcer location: toe Diabetes mellitus type: type 2 Laterality: left Non-pressure ulcer stage: with fat layer exposed Qualified Code(s): E11.621 - Type 2 diabetes mellitus with foot ulcer; L97.522 - Non-pressure chronic ulcer of other part of left foot with fat layer exposed Code(s): E11.621 - Type 2 diabetes mellitus with foot ulcer; L97.509 - Non-pressure chronic ulcer of other part of unspecified foot with unspecified severity Status: Acute Assessment and Plan: 1. Infected foot ulcer, polymicrobial growth 2. DM 3. PCN allergy REC Vanc #5, stop and place on cefuroxime x 12 days. Ok discharge. Will see as needed, call if further Qs, thanks Subjective Date/time seen: 03/21/20 15:19 Interval history: in walking boot, no pain with weight bearing Exam Narrative: Exam Narrative: afebrile Const: General: no acute distress Eyes: General: appearance normal, both eyes and all related structures Resp: Effort & Inspection: normal respiratory effort Auscultation: clear to auscultation bilaterally Cardio: Rate: regular rate Rhythm: regular rhythm Heart sounds: no gallops and no murmurs GI: GI Palp: Yes Soft to palpation and No Tenderness to palpation present (GI) Skin: General skin exam: normal color and no rashes or lesions noted Extrem: Other: foot in complex dressing, I did not remove, no proximal erythema warmth tenderness Objective Data Vital Signs Vital Signs: Vital Signs - 24 hr 03/20/20 18:05 03/20/20 22:00 03/21/20 01:55 Temperature 36.5 C 36.4 C 36.5 C Pulse Rate 86 80 81 Respiratory Rate 18 16 16 Blood Pressure 155/93 H 176/90 H 157/95 H Pulse Oximetry 98 100 100 03/21/20 05:59 03/21/20 10:00 03/21/20 10:27 Temperature 36.0 C L 36.4 C Pulse Rate 78 78 Respiratory Rate 16 15 Blood Pressure 158/91 H 168/90 H Pulse Oximetry 100 100 98 03/21/20 14:00 Temperature 36.3 C L Pulse Rate 89 Respiratory Rate 17 Blood Pressure 164/92 H Pulse Oximetry 100 Intake/Output Intake/Output: Intake & Output 03/18/20 03/19/20 03/20/20 03/21/20 23:59 23:59 23:59 23:59 Intake Total 4010 4700 3710 1930 Output Total 2175 3050 2950 1475 Balance 1835 1650 760 455 Meds/Results Medications: Active Medications Generic Name Dose Route Start Last Admin Trade Name Freq PRN Reason Stop Dose Admin Acetaminophen 500 mg 03/18/20 14:52 Tylenol Tablet PO Q6H PRN Mild Pain (1-3) or Fever Hydrocodone Bitart/Acetaminophen 1 tab 03/18/20 14:52 Linch 5-325 Mg PO Q4H PRN Pain Rated 4-6 Hydrocodone Bitart/Acetaminophen 1 tab 03/18/20 14:52 Linch 7.5-325 Mg PO Q4H PRN Pain Rated 7-10 Albuterol 2 puff 03/18/20 23:43 Proventil Hfa INHALATION QIDRT PRN Shortness Of Breath Atorvastatin Calcium 40 mg 03/19/20 21:00 03/20/20 21:58 Lipitor PO 40 mg HS SAMANTHA Administration Cefuroxime Axetil 500 mg 03/21/20 21:00 Ceftin PO 04/02/20 21:01 Q12HR SAMANTHA Dextrose 12.5 gm 03/18/20 10:25 Dextrose 50% Syringe IV PUSH PRN PRN Hypoglycemia Protocol Enoxaparin Sodium 40 mg 03/19/20 09:00 03/21/20 08:05 Lovenox SUB-Q 40 mg DAILY SAMANTHA Administration Glucagon 1 mg 03/18/20 10:25 Glucagon For Inj IM PRN PRN Hypoglycemia Protocol Glucose 15 gm 03/18/20 10:25 Glutose 15 PO PRN PRN Hypoglycemia Protocol Guaifenesin/Dextromethorphan 5 ml 03/19/20 11:12 03/21/20 01:33 Robitussin-Dm Syrup PO 5 ml Q4H PRN Administration Cough Dextrose 1,000 mls @ 100 mls/hr 03/18/20 10:25 Dextrose 5% 1,000 Ml IVPB PRN PRN Hypoglycemia Protocol Insulin Aspart 4 - 7 units 03/19/20 07:25 03/21/20 11:47 Novolog SUB-Q 4 units TIDWM SAMANTHA Administration Protocol Insulin Glargine 25 units 03/20/20 21:00 03/20/20 22:01
--- NOTE | 2020-03-21 15:40 | PM.DS ---
DS: Admitting Diagnosis Admitting Diagnosis Admitting Diagnosis: Left foot cellulitis, left foot wound DS: Discharge Diagnosis Discharge Diagnosis (1) Diabetic foot ulcer: Qualifiers: Diabetes mellitus type: type 2 Diabetic foot ulcer location: toe Laterality: left Non-pressure ulcer stage: with fat layer exposed Qualified Code(s): E11.621 - Type 2 diabetes mellitus with foot ulcer; L97.522 - Non-pressure chronic ulcer of other part of left foot with fat layer exposed Code(s): E11.621 - Type 2 diabetes mellitus with foot ulcer; L97.509 - Non-pressure chronic ulcer of other part of unspecified foot with unspecified severity Status: Acute Assessment and Plan: had wound to his distal left foot for 2 months that was left untreated without follow-up. Now with worsening erythema, edema, warmth to plantar, dorsal aspect of foot as well as 3rd phalange. patient was started on broad-spectrum antibiotics with IV Primaxin and vancomycin due to new onset diabetes surgery took him to the OR 03/18/2020 for sharp excisional debridement of left plantar foot ulcer including skin, fat, and muscle/tendon measuring 4cm x 4cm blood cultures show no growth at this time Wound cultures came back growing Staph Aureus and Group B Strep. Dr. Regalado Infectious Disease recommended treatment with cefuroxime for 12 days The patient does not have insurance. He was going to have a wound VAC but is unable to pay for this. He is also unable to have wound care or home health at home. He states he is able to do his own dressing changes with the assistance of his brother. He understands the importance of continuing oral antibiotics until prescription is completely done. Educated him on monitoring his wound, return to ER warnings given, and need to follow-up with primary care provider. Patient understands and agrees the plan all questions answered. (2) Cellulitis of foot, left: Code(s): L03.116 - Cellulitis of left lower limb Status: Acute Assessment and Plan: See above. (3) Elevated blood pressure reading: Code(s): R03.0 - Elevated blood-pressure reading, without diagnosis of hypertension Status: Acute Assessment and Plan: Patient's blood pressure has been elevated since arrival. He has never been diagnosed with hypertension in the past. BP still elevated 150-160's systolic. Continue Losartan to 100 mg daily. (4) Venous stasis of both lower extremities: Code(s): I87.8 - Other specified disorders of veins Status: Acute Assessment and Plan: appears to have venous stasis changes to bilateral lower extremities. Good pulses palpated. fasting lipid panel showed his total cholesterol, triglycerides, LDL and HDL were all within normal limits. Will start him on Atorvastatin since he has diabetes 40 mg HS. DS: Summary Hospital Course Reason for hospitalization: Darin Campos is a 59 year old male With no chronic medical history, has not seen a doctor he in about 13 years, who presented to the emergency room with increased redness, swelling, drainage to his left foot. Initial vitals showed temperature of 97.4?, blood pressure 158/100, heart rate tachycardic at 117, normal respirations and oxygenation 100% on room air. Initial labs showed leukocytosis at 11,000, with a left shift, normal coag panel, slight hyponatremia 134, glucose was 300 on arrival. Hemoglobin A1c is 10.6%. Normal lactic. CRP elevated at 16.4. Urine shows 3+ glucose, 1+ ketones, 1+ protein otherwise no signs of acute UTI. Foot XR showed Scattered degenerative changes including mild polyarticular osteoarthritis in the fore and midfoot and scattered enthesophytes. Patient was admitted into the hospital for IV
[2020-03-21 16:20] LABS: Glucose Point of Care 148 (65-105)
--- NOTE | 2020-03-25 15:19 | PC.NURSE ---
Blood cx show no growth.
== END 2020-03-21 17:30 | disposition home or self-care (01) | DRG 364 ==
LOC: ANHED 03-18 01:36 → ANH2MED 03-18 01:43
PROVIDERS: Emergency Medicine; Physician Assistant; Surgery; Admitting Provider Family Medicine; Emergency Provider Emergency Medicine; Visit Provider Internal Medicine
PROC: 0KBW0ZZ Excision of Left Foot Muscle, Open Approach (ICD-10-PCS; principal; 2020-03-18 14:00)
DX: E11.621 Type 2 diabetes mellitus with foot ulcer (principal); L97.522 Non-pressure chronic ulcer of other part of left foot with fat layer exposed; L97.529 Non-pressure chronic ulcer of other part of left foot with unspecified severity; E11.65 Type 2 diabetes mellitus with hyperglycemia; L03.116 Cellulitis of left lower limb; R03.0 Elevated blood-pressure reading, without diagnosis of hypertension; I87.8 Other specified disorders of veins; Z28.21 Immunization not carried out because of patient refusal; Z88.0 Allergy status to penicillin
CPT/HCPCS: 36415; 71046; 73630; 80048; 80053; 80061; 80202; 81001; 83036; 83605; 85025; 85027; 85610; 85730; 86140; 87040; 87070; 87075; 87076; 87077; 87185; 87186; 87205; 96361; 96365; 96366; 96367; 96372; 96375; 99285; A9270; G0378; G0379; J0131; J0743; J1100; J1650; J1815; J2250; J2405; J2704; J3010; J3370; J7030; J7120; L2116

== ENCOUNTER 2020-04-25 10:14 | Inpatient (IN) | payer MEDICAID, SELFPAY ==
[2020-04-25] VITALS (15 sets, daily range): BP systolic 132–193; BP diastolic 80–122; PULSE 81–97; RESP 12–20; TEMP 36.2–36.6; O2SAT 99–100; BMI 38.3
--- NOTE | ~2020-04-25 | XR_ITS ---
EXAMINATION: XR foot LT min 3V DATE: 04/25/2020 11:19 INDICATION: Diabetic foot wound, left foot swelling TECHNIQUE: Dorsoplantar, lateral, and 2 oblique views of the left foot were obtained. COMPARISON: 03/17/2020 FINDINGS: There is osteopenia and fragmentation in the head of the third metatarsal and base of the t hird proximal phalanx. There is soft tissue swelling of the foot and third toe in this region. A plan tar ulceration of the distal foot is suggested on the lateral view. Dorsal and plantar calcaneal enth esophytes are noted. IMPRESSION: 1. Findings consistent with osteomyelitis of the third metatarsal head and third proximal phalanx bas e. Reviewed, dictated and finalized at location A. G[employer] WORKER IMPRESSION: 1. Findings consistent with osteomyelitis of the third metatarsal head and thir d proximal phalanx base.
--- NOTE | ~2020-04-25 | US_ITS ---
EXAMINATION: US venous doppler [facility] DATE: 04/26/2020 11:46 INDICATION: Left lower limb swelling TECHNIQUE: Olivares scale images without and with compression and Doppler images of the left lower extrem ity veins were obtained. COMPARISON: None FINDINGS: The left common femoral vein, profunda femoral vein, femoral vein, popliteal vein, peroneal trunk, posterior tibial veins, and greater saphenous vein are patent. There is mild left inguinal ly mphadenopathy. IMPRESSION: 1. Patent left lower extremity veins. No evidence of deep venous thrombosis. 2. Mild left inguinal lymphadenopathy, likely reactive. Reviewed, dictated and finalized at location A. ER
[2020-04-25 11:20] LABS: Basophils Percent Auto 0.4 % (0.2-1.2); Eosinophils Absolute Auto 0.5 K/mm3 (0-0.3); Eosinophils Percent Auto 4.5 % (0-4.4); Hematocrit 39.4 % (42.0-52.0); Hemoglobin 13.5 g/dL (14.0-18.0); Immature Granulocyte Absolute 0.03 K/mm3 (0.00-0.031); Immature Granulocyte Percent A 0.3 % (0-0.5); Lymphocytes Absolute Auto 1.29 K/mm3 (0.9-3.2); Lymphocytes Percent Auto 12.1 % (18.3-44.2); Mean Corpuscular HGB Conc 34.3 g/dl (32-36); Mean Corpuscular Hemoglobin 28.4 pg (26-34); Mean Corpuscular Volume 82.9 fl (80-100); Mean Platelet Volume 10.1 fl (7.4-10.4); Monocytes Percent Auto 9.6 % (2.6-8.5); Neutrophils Absolute Auto 7.8 K/mm3 (1.3-6.7); Neutrophils Percent Auto 73.1 % (45.5-73.1); Platelet Count Result 265 k/mm3 (150-375); Red Blood Count 4.75 M/mm3 (4.6-6.20); Red Cell Distribution Width 14.3 % (11.5-14.5); White Blood Count 10.7 K/mm3 (4.5-10.0)
[2020-04-25 11:32] LABS: Lactic Acid Reflex 1.5 mmol/L (0.7-2.1)
[2020-04-25 11:34] LABS: Prothrombin Time 14.2 Seconds (11.1-14.7)
[2020-04-25 11:35] LABS: Anion Gap 8 mmol/L (8-16); Blood Urea Nitrogen 16 mg/dL (9-20); CRP 5.1 mg/dL (<1.0); Calcium 9.6 mg/dL (8.4-10.2); Carbon Dioxide 30 mmol/L (22-30); Chloride 101 mmol/L (98-107); Estimated CRCL calculation 127 ml/min; Estimated Glomerular Filt Rate > 60; Glucose 192 mg/dL (75-110); Partial Thromboplastin Time 34.1 SECONDS (22.3-36.8); Potassium 4.5 mmol/L (3.4-5.0); Sodium 139 mmol/L (137-145)
[2020-04-25 11:47] LABS: Erythrocyte Sedimentation Rate 66 mm/hr (0-20)
--- NOTE | 2020-04-25 12:27 | ED.GENADULT ---
HPI - General Adult General Chief complaint: Wound/Laceration Stated complaint: infected diabetic foot wound Time Seen by Provider: 04/25/20 11:00 History of Present Illness HPI narrative: Patient is a 59-year-old male who presents ER from wound care for further evaluation of some diabetic foot wounds. Patient has an open wound to the plantar aspect of the left foot as well as the plantar aspect of the third digit and the dorsal aspect of the third digit. Reports while wound care a Q-tip was inserted and purulent material came out which concerned the wound care nurse. He has been managed by Dr. Sha miles with general surgery. Denies fevers or chills or sweats. No increased pain. He does report there is some slight redness to the foot that may be new but he is unsure. Related Data Allergies Allergy/AdvReac Type Severity Reaction Status Date / Time Penicillins Allergy Mild Hives Verified 04/25/20 16:04 Review of Systems Review of Systems: All systems reviewed & are unremarkable except as noted in HPI and below Constitutional: Constitutional: Denies chills, Denies fever(s) and Denies weakness ENT: Denies nasal congestion and Denies sore throat Respiratory: Respiratory: Denies cough, Denies dyspnea and Denies wheezing Gastrointestinal: Gastrointestinal: Denies abdominal pain, Denies diarrhea, Denies nausea and Denies vomiting Integumentary/Breasts: Comments: Wounds over the plantar aspect of the left foot and the third digit of the left foot. [facility] Past Medical History Medical History Diabetes mellitus, new onset Diabetic foot ulcer Patient denies significant medical history Surgical History Surgical History Hx laparoscopic cholecystectomy Family History Family History Sibling Family history of gallbladder disease Father Family history of chronic obstructive pulmonary disease Diabetes mellitus Mother Family history of heart disease in male family member before age 55 Diabetes mellitus Hypertension Heart disease Social History Social History Smoking status: Never smoker Alcohol intake: never Substance use: never Substance use type: does not use Additional living arrangements comments: Lives in [place]. Never . 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 HEAD: Normocephalic, atraumatic. ENT: Mucous membranes moist. CHEST: Clear to auscultation. No respiratory distress. HEART: Regular rate and rhythm. Normal peripheral pulses. ABDOMEN: Soft, nontender, nondistended. EXTREMITIES: Normal range of motion. Wounds to left foot plantar aspect with 1 about the size of quarter over the third metatarsal without obvious surrounding cellulitis and no expressible purulence. There is swelling to the left third digit with an open wound on the plantar and dorsal aspect that I cannot get any purulence out of. Slight erythema to the dorsum and medial aspect of the foot that has some warmth. No tenderness. SKIN: Warm, dry, no rash. NEURO: Alert and oriented x3. PSYCH: Normal mood and affect. Course Course Emergency Course: Discussed with general surgery. Recommends admission to hospital service and they will consult. Patient will be started on IV antibiotics. Likely require amputation. Patient aware of diagnosis and treatment plan. Vital Signs Vital signs: Vital Signs Temperature 97.3 F L 04/25/20 10:31 Pulse Rate 95 04/25/20 10:31 Respiratory Rate 16 04/25/20 10:31 Blood Pressure 160/90 H 04/25/20 10:31 Pulse Oximetry 99 04/25/20 10:31 Tempera
--- NOTE | 2020-04-25 14:41 | PC.NURSE ---
This RN able to obtain one set of blood cultures. Multiple attempts made by this RN and techs x2 without success. Lab was called by charge nurse to attempt to obtain second set. Antibiotics not started at this time because of BC..
[2020-04-25] MEDS: metroNIDAZOLE 500 MG/ISO 100ML 500 MG/100 ML BAG 100 MG IVPB ×2 (14:52→20:14)
--- NOTE | 2020-04-25 18:21 | PM.CNGS ---
Assessment and Plan Assessment and plan (1) Diabetic foot ulcer: Qualifiers: Diabetic foot ulcer location: toe Diabetes mellitus type: type 2 Laterality: left Non-pressure ulcer stage: with fat layer exposed Qualified Code(s): E11.621 - Type 2 diabetes mellitus with foot ulcer; L97.522 - Non-pressure chronic ulcer of other part of left foot with fat layer exposed Code(s): E11.621 - Type 2 diabetes mellitus with foot ulcer; L97.509 - Non-pressure chronic ulcer of other part of unspecified foot with unspecified severity Status: Acute Assessment and Plan: will likely need amputation, pt would like to speak to ID before decision on surgery, cont abx and local wound care for now (2) Osteomyelitis: Code(s): M86.9 - Osteomyelitis, unspecified Status: Acute Assessment and Plan: will consult ID for opinion re: abx vs amputation (3) Diabetes mellitus: Qualifiers: Diabetes mellitus type: type 2 Diabetes mellitus senior product consultant insulin use: without alf use Diabetes mellitus complication status: with skin complications Diabetes mellitus complication detail: with foot ulcer Qualified Code(s): E11.621 - Type 2 diabetes mellitus with foot ulcer; L97.509 - Non-pressure chronic ulcer of other part of unspecified foot with unspecified severity Code(s): E11.9 - Type 2 diabetes mellitus without complications Status: Acute Assessment and Plan: tight bs control per primary team (4) Obesity, morbid, BMI 40.0-49.9: Code(s): E66.01 - Morbid (severe) obesity due to excess calories Status: Acute Assessment and Plan: dietary and lifestyle modifications History of Present Illness Consult details Consult date: 04/25/20 Reason for consult: wound care Requesting physician: Fabian Taylor MD Narrative: Pt is a 59 y/o M c h/o DM, HTN presenting c worsening L foot diabetic foot ulcer, osteomyelitis. Pt has been being followed in wound care clinic and was progressing well until wound check today. Pt noted to have increased swelling and drainage. Pt otherwise feels ok, denies any f/c. Review of Systems Constitutional: Constitutional: Denies chills, Denies fatigue, Denies fever(s), Reports lethargy, Denies malaise and Reports weakness Eyes: Eyes: Reports no additional eye complaints ENT: Reports system reviewed and no additional complaints, except as documented Cardiovascular: Cardiovascular: Reports no additional cardiovascular complaints Respiratory: Respiratory: Reports no additional respiratory complaints Gastrointestinal: Gastrointestinal: Reports no additional gastrointestinal complaints Genitourinary: Genitourinary: Reports no additional male genitourinary complaints Musculoskeletal: Musculoskeletal: Reports abnormal gait, Reports deformity, Reports numbness and Reports tingling Integumentary/Breasts: Skin/Breast: Reports swelling, Reports skin ulcer and Reports sores Neurologic: Reports focal weakness and Reports paresthesias Psychiatric: Psychiatric: Reports no additional psychiatric complaints Endocrine: Endocrine: Reports no additional endocrine complaints Hematologic/Lymphatic: Hematologic/Lymphatic: Reports no additional hematologic/lymphatic complaints Allergic/Immunologic: Allergic/Immunologic: Reports no additional allergic/immunologic complaints [facility] Past Medical History Medical History Diabetes mellitus, new onset Diabetic foot ulcer Patient denies significant medical history Surgical History Surgical History Hx laparoscopic cholecystectomy Family History Family History Sibling Family history of gallbladder disease Father Family history of chronic obstructive pulmonary disease Diabetes mellitus Mother Family history of heart disease in male family m
[2020-04-25 21:03] LABS: Glucose Point of Care 213 (65-105)
--- NOTE | 2020-04-25 21:06 | PM.IMHP ---
H&P: HPI History of Present Illness Date/Time: 04/25/20 21:06 Chief complaint: Diabetic foot wound/osteomyelitis Narrative: Darin Campos is a 59 year old male who had been admitted here on 03/18/2020 due to left foot cellulitis and left foot wound. Patient presented with redness swelling and drainage that left foot. The patient noticed on hold the bottom of his foot about 2 months prior to that. Surgery saw him at that time and they did a sharp excisional debridement of left plantar foot ulcer including skin, fat, muscle /tendon measuring 4 cm x 4 cm. The patient was placed on Primaxin and vancomycin. Infectious disease was consulted as well. He was newly diagnosed diabetic with the A1c of 10.6. The wound cultures grew out staph aureus and group B strep. The patient took all of his cefuroxime as directed. The patient had a wound VAC at 1 time but was not able to go home with a wound VAC as he has no insurance. The patient also followed up with the surgeon on 03/28/2020 as well as 04/11/2020. The patient was noted to still have quite a bit of swelling and purulence drainage from his 3rd toe. The patient has been seeing wound care and he was sent to the emergency room to be evaluated for his diabetic foot wounds. His an open wound to the plantar aspect of the left foot as well as the plantar aspect of the 3rd digit in the dorsal aspect of 3rd digit. While in wound care acute tube was inserted per a little material came out which was concerning for the wound care nurse. The patient had no fever chills. Surgery has been consulted. X-ray of the left foot was read as findings consistent with osteomyelitis of the 3rd metatarsal head and 3rd proximal phalanx base. The patient was started on vancomycin, Levaquin and Flagyl. Cultures are pending. Patient is admitted as observation the date of 04/25/2020 Review of Systems Review of Systems: All systems reviewed & are unremarkable except as noted in HPI and below Constitutional: Constitutional: Reports as per HPI and Reports no additional constitutional complaints Eyes: Eyes: Reports as per HPI and Reports no additional eye complaints ENT: Reports system reviewed and no additional complaints, except as documented and Reports Normal hearing present Cardiovascular: Cardiovascular: Reports no additional cardiovascular complaints Respiratory: Respiratory: Reports no additional respiratory complaints and Reports no additional respiratory complaints Gastrointestinal: Gastrointestinal: Reports as per HPI and Reports no additional gastrointestinal complaints Musculoskeletal: Musculoskeletal: Reports no additional musculoskeletal complaints Integumentary/Breasts: Skin/Breast: Reports system reviewed and no additional complaints, except as docu and Reports as per HPI Neurologic: Reports system reviewed and no additional complaints, except as documented, Reports as per HPI and Reports Normal hearing present Psychiatric: Psychiatric: Reports no additional psychiatric complaints and Reports as per HPI Endocrine: Endocrine: Reports no additional endocrine complaints Hematologic/Lymphatic: Hematologic/Lymphatic: Reports no additional hematologic/lymphatic complaints Allergic/Immunologic: Allergic/Immunologic: Reports no additional allergic/immunologic complaints [facility] Past Medical History Medical History (Updated 04/25/20 @ 21:14 by Krystle Spence NP) Diabetes mellitus, new onset Diabetic foot ulcer Hyperlipidemia Hypertension Surgical History Surgical History (Updated 04/25/20 @ 21:13 by Krystle Spence NP) Hx laparoscopic cholecystectomy S/P debridement left foot Family History Family History Sibling Family history of gallbladder disease Father Family history of chronic obstructive pulmonary disease Diabetes mellitus Mother Family history of heart disease in male family member before age 55 Diabetes neema
[2020-04-25] MEDS: INSULIN GLARGINE (*BKC) 100 UNITS/ML 25 UNITS SUB-Q (21:59)
[2020-04-25] MEDS: SILVERGEL (ELTA) 45 ML 1 APPLIC TOPICAL (21:59)
[2020-04-26] VITALS (7 sets, daily range): BP systolic 140–174; BP diastolic 87–94; PULSE 83–90; RESP 16–20; TEMP 36.4–37.2; O2SAT 98–100
[2020-04-26] MEDS: metroNIDAZOLE 500 MG/ISO 100ML 500 MG/100 ML BAG 100 MG IVPB ×4 (02:18→20:24)
[2020-04-26 02:49] LABS: Glucose Point of Care 154 (65-105)
[2020-04-26] MEDS: HYDROcodone/acetaminophen (*CRX) 5-325 MG TABLET 1 TAB PO (05:25)
[2020-04-26 07:32] LABS: Glucose Point of Care 169 (65-105)
[2020-04-26] MEDS: ASPIRIN 81 MG ENTERIC TABLET PO (08:05)
[2020-04-26] MEDS: LOSARTAN POTASSIUM 100 MG TABLET PO (08:05)
[2020-04-26] MEDS: SILVERGEL (ELTA) 45 ML 1 APPLIC TOPICAL (08:06)
--- NOTE | 2020-04-26 09:13 | PM.PNGS ---
Progress Note: A&P Assessment and Plan (1) Diabetic foot ulcer: Code(s): E11.621 - Type 2 diabetes mellitus with foot ulcer; L97.509 - Non-pressure chronic ulcer of other part of unspecified foot with unspecified severity Status: Acute Assessment and Plan: cont abx, local wound care, will await ID input as pt wants to hold off on amputation if possible (2) Osteomyelitis: Code(s): M86.9 - Osteomyelitis, unspecified Status: Acute Assessment and Plan: see above (3) Diabetes mellitus: Qualifiers: Diabetes mellitus type: type 2 Diabetes mellitus terminal carman insulin use: without retirement use Diabetes mellitus complication status: with skin complications Diabetes mellitus complication detail: with foot ulcer Qualified Code(s): E11.621 - Type 2 diabetes mellitus with foot ulcer; L97.509 - Non-pressure chronic ulcer of other part of unspecified foot with unspecified severity Code(s): E11.9 - Type 2 diabetes mellitus without complications Status: Acute Assessment and Plan: bs control per primary team Subjective Subjective Date/Time Seen: 04/26/20 09:13 pt denies any acute issues overnight, wants to be as conservative as possible regarding amputation Review of Systems Constitutional: Constitutional: Denies chills, Reports fatigue, Denies fever(s), Denies malaise and Reports weakness Cardiovascular: Cardiovascular: Reports no additional cardiovascular complaints Respiratory: Respiratory: Reports no additional respiratory complaints Gastrointestinal: Gastrointestinal: Reports no additional gastrointestinal complaints Exam Const: General: no acute distress Orientation/consciousness: patient oriented x3 Resp: Effort & Inspection: normal respiratory effort Auscultation: clear to auscultation bilaterally Cardio: Rate: regular rate Rhythm: regular rhythm GI: Inspection: normal to inspection GI Palp: No abdominal tenderness, Yes Soft to palpation and No Tenderness to palpation present (GI) Skin: Other: L foot dressing C/D/I Objective Data Vital Signs Vital Signs: Vital Signs - 24 hr 04/25/20 10:31 04/25/20 10:58 04/25/20 11:02 Temperature 36.3 C L Pulse Rate 95 86 97 Respiratory Rate 16 20 16 Blood Pressure 160/90 H 174/110 H 193/105 H Pulse Oximetry 99 100 100 04/25/20 11:17 04/25/20 11:32 04/25/20 12:22 Temperature Pulse Rate 89 Respiratory Rate 19 Blood Pressure 171/122 H 178/115 H 149/95 H Pulse Oximetry 100 100 100 04/25/20 12:31 04/25/20 13:02 04/25/20 13:16 Temperature Pulse Rate 94 92 86 Respiratory Rate 18 15 18 Blood Pressure 166/97 H 160/82 H 132/80 Pulse Oximetry 99 100 99 04/25/20 14:16 04/25/20 14:31 04/25/20 14:58 Temperature Pulse Rate 92 81 Respiratory Rate 12 17 Blood Pressure 148/95 H 158/107 H 146/84 H Pulse Oximetry 100 04/25/20 16:00 04/25/20 19:23 04/25/20 22:00 Temperature 36.2 C L 36.6 C 36.6 C Pulse Rate 83 87 89 Respiratory Rate 17 17 20 Blood Pressure 148/85 H 159/91 H 150/93 H Pulse Oximetry 100 100 100 04/26/20 00:00 04/26/20 04:00 04/26/20 06:00 Temperature 36.6 C 37.2 C 37.2 C Pulse Rate 88 90 90 Respiratory Rate 20 20 20 Blood Pressure 146/90 H 156/94 H 156/94 H Pulse Oximetry 98 100 100 Intake/Output Intake/Output: Intake & Output 04/23/20 04/24/20 04/25/20 04/26/20 23:59 23:59 23:59 23:59 Intake Total 1340 990 Output Total 375 2100 Balance 965 -1110 Meds/Results Medications: Active Medications Generic Name Dose Route Start Last Admin Trade Name Freq PRN Reason Stop Dose Admin Hydrocodone Bitart/Acetaminophen 1 tab 04/25/20 13:50 04/26/20 05:25 Hydrocodone/Acetaminophen (*Crx) 5-325 Mg Tablet PO 1 tab Q4H PRN Administration Pain Rated 4-6 Albuterol 2 puff 04/25/20 21:19 Albuterol Sulfate (*Sp) Aerosol 1 Puff INHALATION QIDRT PRN Shortness Of Breath Aspirin 81 mg 04/26/20 09:00 04/26/20 08:05 A
[2020-04-26 09:19] LABS: Hematocrit 38.4 % (42.0-52.0); Mean Corpuscular HGB Conc 33.9 g/dl (32-36); Mean Corpuscular Hemoglobin 28.1 pg (26-34); Mean Corpuscular Volume 82.9 fl (80-100); Mean Platelet Volume 10.4 fl (7.4-10.4); Platelet Count Result 254 k/mm3 (150-375); Red Blood Count 4.63 M/mm3 (4.6-6.20); Red Cell Distribution Width 14.2 % (11.5-14.5); White Blood Count 8.2 K/mm3 (4.5-10.0)
--- NOTE | 2020-04-26 09:39 | PM.IMPN ---
Progress Note: A&P Assessment and Plan (1) Osteomyelitis: Code(s): M86.9 - Osteomyelitis, unspecified Status: Acute Assessment and Plan: Patient had left diabetic foot wound/cellulitis. He underwent sharp excisional debridement on 03/18/20 and was being followed in wound care. He presented for appointment on 04/25/20 and was noted to have increased swelling and drainage with no blister and was sent for emergency evaluation. His left foot x-ray was consistent with osteomyelitis of the third metatarsal head and third proximal phalanx base. Mild leukocytosis has resolved. CRP elevated at 5.1. He has been afebrile. General surgery is following and amputation has been recommended. Patient would like to consider antibiotic therapy before proceeding with amputation, therefore consultation has been placed to Infectious Disease. Recommendations are appreciated from both specialties. Continue Levaquin, Flagyl, and Vancomycin at this time. ID input is appreciated. Blood cultures are pending. (2) Diabetic foot ulcer: Qualifiers: Diabetes mellitus type: type 2 Laterality: left Code(s): E11.621 - Type 2 diabetes mellitus with foot ulcer; L97.509 - Non-pressure chronic ulcer of other part of unspecified foot with unspecified severity Status: Acute Assessment and Plan: Left foot as noted above. Continue local wound care and antibiotics. (3) Diabetes mellitus: Qualifiers: Diabetes mellitus complication detail: with foot ulcer Diabetes mellitus complication status: with skin complications Diabetes mellitus alf insulin use: without terminal press operator use Diabetes mellitus type: type 2 Qualified Code(s): E11.621 - Type 2 diabetes mellitus with foot ulcer; L97.509 - Non-pressure chronic ulcer of other part of unspecified foot with unspecified severity Code(s): E11.9 - Type 2 diabetes mellitus without complications Status: Acute Assessment and Plan: New diagnosis from last hospitalization 03/18/20. A1c at that time was 10.6. Blood sugars evaluated today and have been reasonably well controlled. Last recorded sugar was 169. Continue Accu-Cheks ACHS, sliding-scale insulin, and hypoglycemic protocol Continue Lantus 25 units nightly Metformin is on hold at this time (4) Hyperlipidemia: Code(s): E78.5 - Hyperlipidemia, unspecified Status: Chronic Assessment and Plan: Continue atorvastatin (5) Hypertension: Qualifiers: Hypertension type: essential hypertension Qualified Code(s): I10 - Essential (primary) hypertension Code(s): I10 - Essential (primary) hypertension Status: Chronic Assessment and Plan: Blood pressure evaluated today in stable at 156/94. Continue losartan Subjective Date/time seen: 04/26/20 09:39 Interval history: Date of service: 04/26/2020 Darin Campos is a 59 year old male with a history of newly diagnosed type 2 diabetes mellitus (03/18/20), hyperlipidemia, and HTN with recent hospitalization from 03/18-03/21/20 for evaluation of left diabetic foot wound who is seen in follow up for worsening of foot wound with associated osteomyelitis. He is feeling well at this time and has no complaints. He denies any pain in his foot. He has poor sensation of the lower extremities. Denies numbness or tingling. He denies any symptoms of feeling ill. He is resting comfortably, eating well, and sleeping well. His last BM was 2 days ago. He denies urinary symptoms. No N/V/F/C, abdominal pain, shortness of breath, cough, chest pain, palpitations, headache, dizziness, or lightheadedness. He has no additional concerns. Review of Systems Review of Systems: All systems reviewed & are unremarkable except as noted in HPI and below Exam Narrative: Exam Narrative: Mr. Campos is a well-nourished, well-appearing 59-year-old male who is lying supine in bed. He appears comfortable and is in NA
[2020-04-26 09:40] LABS: Anion Gap 9 mmol/L (8-16); Blood Urea Nitrogen 12 mg/dL (9-20); Calcium 9.4 mg/dL (8.4-10.2); Carbon Dioxide 30 mmol/L (22-30); Chloride 98 mmol/L (98-107); Estimated CRCL calculation 105 ml/min; Estimated Glomerular Filt Rate > 60; Glucose 224 mg/dL (75-110); Potassium 4.3 mmol/L (3.4-5.0); Sodium 137 mmol/L (137-145)
[2020-04-26 11:47] LABS: Glucose Point of Care 195 (65-105)
--- NOTE | 2020-04-26 14:07 | WPDINFPN2 ---
Progress Note: A&P Assessment and Plan (1) Osteomyelitis: Code(s): M86.9 - Osteomyelitis, unspecified Status: Acute Assessment and Plan: acute OM L 3rd toe and MT REC Levofloxacin and metronidazole. Needs ray amputation (at a minimum) Subjective Date/time seen: 04/26/20 14:07 Objective Data Vital Signs Vital Signs: Vital Signs - 24 hr 04/25/20 14:16 04/25/20 14:31 04/25/20 14:58 Temperature Pulse Rate 92 81 Respiratory Rate 12 17 Blood Pressure 148/95 H 158/107 H 146/84 H Pulse Oximetry 100 04/25/20 16:00 04/25/20 19:23 04/25/20 22:00 Temperature 36.2 C L 36.6 C 36.6 C Pulse Rate 83 87 89 Respiratory Rate 17 17 20 Blood Pressure 148/85 H 159/91 H 150/93 H Pulse Oximetry 100 100 100 04/26/20 00:00 04/26/20 04:00 04/26/20 06:00 Temperature 36.6 C 37.2 C 37.2 C Pulse Rate 88 90 90 Respiratory Rate 20 20 20 Blood Pressure 146/90 H 156/94 H 156/94 H Pulse Oximetry 98 100 100 04/26/20 10:00 Temperature 36.5 C Pulse Rate 87 Respiratory Rate 16 Blood Pressure 140/88 Pulse Oximetry 98 Intake/Output Intake/Output: Intake & Output 04/23/20 04/24/20 04/25/20 04/26/20 23:59 23:59 23:59 23:59 Intake Total 1340 1330 Output Total 375 2100 Balance 965 -770 Meds/Results Medications: Active Medications Generic Name Dose Route Start Last Admin Trade Name Freq PRN Reason Stop Dose Admin Hydrocodone Bitart/Acetaminophen 1 tab 04/25/20 13:50 04/26/20 05:25 Hydrocodone/Acetaminophen (*Crx) 5-325 Mg Tablet PO 1 tab Q4H PRN Administration Pain Rated 4-6 Albuterol 2 puff 04/25/20 21:19 Albuterol Sulfate (*Sp) Aerosol 1 Puff INHALATION QIDRT PRN Shortness Of Breath Aspirin 81 mg 04/26/20 09:00 04/26/20 08:05 Aspirin 81 Mg Enteric Tablet PO 81 mg DAILY SAMANTHA Administration Atorvastatin Calcium 40 mg 04/26/20 21:00 Atorvastatin 40 Mg Tablet PO HS SAMANTHA Dextrose 12.5 gm 04/25/20 21:20 Dextrose 50% 25 Gm/50 Ml Syringe IV PUSH PRN PRN Hypoglycemia Protocol Glucagon 1 mg 04/25/20 21:20 Glucagon For Inj 1 Mg Vial IM PRN PRN Hypoglycemia Protocol Glucose 15 gm 04/25/20 21:20 Glucose Oral Gel 15 Gm Of Glucse In 37.5 Gm Tube PO PRN PRN Hypoglycemia Protocol Levofloxacin/Dextrose 750 mg in 150 mls @ 100 mls/hr 04/26/20 18:00 Levaquin 750 Mg/D5w 150 Ml IVPB Q24H SAMANTHA Metronidazole 500 mg in 100 mls @ 100 mls/hr 04/25/20 21:00 04/26/20 09:10 Flagyl 500 Mg/Iso Soln 100 Ml IVPB Infused Q6H SAMANTHA Infusion Vancomycin HCl 1,750 mg in 500 mls @ 250 mls/hr 04/26/20 04:00 04/26/20 06:40 Vancomycin 1,750 Mg/D5w 500 Ml IVPB Infused Q12H SAMANTHA Infusion Dextrose 1,000 mls @ 100 mls/hr 04/25/20 21:20 Dextrose 5% 1,000 Ml IVPB PRN PRN Hypoglycemia Protocol Insulin Aspart 3 - 6 units 04/26/20 08:00 04/26/20 11:49 Insulin Aspart (*Bkc) 100 Units/Ml SUB-Q Not Given TIDWM [facility] Protocol Insulin Glargine 25 units 04/25/20 21:30 04/25/20 21:59 Insulin Glargine (*Bkc) 100 Units/Ml SUB-Q 25 units HS SAMANTHA Administration Losartan Potassium 100 mg 04/26/20 09:00 04/26/20 08:05 Losartan Potassium 100 Mg Tablet PO 100 mg DAILY SAMANTHA Administration Morphine Sulfate 4 mg 04/25/20 13:50 Morphine Sulfate (*Crx) 4 Mg/Ml Inj IV PUSH Q2H PRN Pain Rated 7-10 Ondansetron HCl 4 mg 04/25/20 13:50 Ondansetron Inj 4 Mg/2 Ml Vial IV PUSH Q4H PRN Nausea Silver Nitrate 1 applic 04/26/20 09:00 04/26/20 08:06 Silvergel (Elta) 45 Ml TOPICAL 1 applic DAILY SAMANTHA Administration Radiology Results: ITS Impressions Foot X-Ray 04/25/20 11:22 IMPRESSION: 1. Findings consistent with osteomyelitis of the third metatarsal head and third proximal phalanx base. Labs Labs: Laboratory Results - last 24 hr 04/25/20 04/25/20 04/26/20 16:35 20:16 07:14 WBC RBC H
[2020-04-26 17:27] LABS: Glucose Point of Care 189 (65-105)
--- NOTE | 2020-04-26 18:36 | CONS_ITS ---
DATE OF CONSULTATION: 04/26/2020 REASON FOR CONSULTATION: Osteomyelitis. HISTORY OF PRESENT ILLNESS: A 59-year-old male here at the end of February with infected left foot ulcer. Culture revealed LEFTY, group B strep, and prevotella. He was given IV antibiotics followed by cefuroxime to complete approximately 2 weeks of therapy. He was given antibiotics in the interim by his primary care physician. He does not remember any of the details. He has been [facility] and was admitted yesterday due to worsening exam. He also has had drainage and notes swelling of the left 3rd toe. No fever, chills, or sweats. No immunosuppressants. No trauma. ALLERGIES: PENICILLIN CAUSED HIVES. HE TOLERATED CEPHALOSPORINS WITHOUT DIFFICULTY. PRESENT MEDICATIONS: No immunosuppressants. HABITS: No tobacco. No alcohol. PAST MEDICAL HISTORY: Type 2 diabetes mellitus, hyperlipidemia, hypertension, laparoscopic cholecystectomy. FAMILY HISTORY: Not pertinent to his present illness. SOCIAL HISTORY: He works in an [employer] shop. He has a girlfriend, lives locally. REVIEW OF SYSTEMS: Improved Accu-Cheks at home since his last admission. Otherwise endocrine, constitutional, musculoskeletal, skin, GI, respiratory negative. PHYSICAL EXAMINATION: GENERAL: Middle-aged male, appears his actual age. No acute distress. VITAL SIGNS: Afebrile since arrival yesterday, 140/88, 87, 16, 98% on room air. SKIN: No generalized rashes. EENT: The conjunctivae are normal. Pupils equal, round, reactive. NECK: No masses or thyromegaly. No meningismus. LUNGS: Clear to auscultation and percussion. CARDIAC: Regular rate and rhythm without murmur or gallop. ABDOMEN: Nontender, soft. No masses, nondistended. EXTREMITIES: Right foot has no clubbing, cyanosis, or edema. On the left, he has an ulceration over the plantar foot and also over the base of the 3rd toe plantar aspect. He has purulence and necrotic debris at the base of the latter ulcer with swelling of the toe, erythema. There is no erythema over the dorsum of the foot. No streaking. LABORATORY DATA: Previous cultures as above. Blood cultures are repeated and are no growth after a very short incubation. White count 8.2, hemoglobin 13, platelets are 254. Chemistry panel normal other than a glucose of 224, calcium normal. RADIOLOGY DATA: Foot x-ray 04/25 compared to 03/17 shows new development of osteopenia fragmentation of the head of 3rd metatarsal and base of 3rd proximal phalanx. Soft tissue swelling. ASSESSMENT: 1. Acute osteomyelitis of the left 3rd toe and left 3rd metatarsal, due to prior foot ulcer and developing despite prior treatment for soft tissue infection. 2. Diabetes mellitus type 2. Under better control than 5 weeks ago. 3. Obesity. 4. Penicillin allergy. Tolerates cephalosporins. RECOMMENDATIONS: 1. Continue levofloxacin and metronidazole. He is not in need of further vancomycin. 2. He will need a minimum of amputation of the 3rd toe and distal 3rd metatarsal. I discussed with the patient that he may need additional tissue or bone resection depending upon intraoperative findings. 3. I do not anticipate long-term antibiotics thereafter. Thank you very much for asking me to see him. NAZ ROSAS M.D. PUBLIC HEALTH SERVICE OFFICER PUBLIC HEALTH SERVICE OFFICER D I MT: Daphne
[2020-04-26] MEDS: guaiFENesin/DEXTROMETHORPHAN 10 ML UDC 5 ML PO (20:22)
[2020-04-26] MEDS: ATORVASTATIN 40 MG TABLET PO (20:23)
[2020-04-26] MEDS: INSULIN GLARGINE (*BKC) 100 UNITS/ML 25 UNITS SUB-Q (20:24)
[2020-04-26 21:41] LABS: Glucose Point of Care 167 (65-105)
[2020-04-27] VITALS (7 sets, daily range): BP systolic 128–170; BP diastolic 74–99; PULSE 81–91; RESP 15–20; TEMP 36.4–36.6; O2SAT 98–100
[2020-04-27] MEDS: metroNIDAZOLE 500 MG/ISO 100ML 500 MG/100 ML BAG 100 MG IVPB ×4 (02:07→20:39)
[2020-04-27 06:10] LABS: Hematocrit 38.9 % (42.0-52.0); Hemoglobin 13.1 g/dL (14.0-18.0); Mean Corpuscular HGB Conc 33.7 g/dl (32-36); Mean Corpuscular Hemoglobin 28.1 pg (26-34); Mean Corpuscular Volume 83.3 fl (80-100); Mean Platelet Volume 10.7 fl (7.4-10.4); Platelet Count Result 267 k/mm3 (150-375); Red Blood Count 4.67 M/mm3 (4.6-6.20); Red Cell Distribution Width 14.2 % (11.5-14.5); White Blood Count 8.7 K/mm3 (4.5-10.0)
[2020-04-27 06:24] LABS: Anion Gap 8 mmol/L (8-16); Blood Urea Nitrogen 16 mg/dL (9-20); Calcium 9.5 mg/dL (8.4-10.2); Carbon Dioxide 31 mmol/L (22-30); Chloride 100 mmol/L (98-107); Estimated CRCL calculation 95 ml/min; Estimated Glomerular Filt Rate > 60; Glucose 182 mg/dL (75-110); Potassium 4.4 mmol/L (3.4-5.0); Sodium 139 mmol/L (137-145)
[2020-04-27 07:39] LABS: Glucose Point of Care 177 (65-105)
[2020-04-27] MEDS: LOSARTAN POTASSIUM 100 MG TABLET PO (08:06)
[2020-04-27] MEDS: guaiFENesin 12 HR 600 MG TABCR PO ×2 (08:06→20:40)
[2020-04-27] MEDS: ASPIRIN 81 MG ENTERIC TABLET PO (08:06)
[2020-04-27] MEDS: SILVERGEL (ELTA) 45 ML 1 APPLIC TOPICAL (08:07)
--- NOTE | 2020-04-27 10:22 | ADMGEN ---
04/25/20 1630 This patient, Darin Campos, was admitted to 2 Medical Room 240-01. Patient oriented to hospital policies and general routines including ID bracelet, bed and alarms, visiting hours, pain management, procedures, bathroom and other care routines, personal items, smoking policy, room service/diet, and visiting hours. Information on how to activate the Rapid Response Team has been discussed. Patient/Family are encouraged to report perceived risks to care and to ask questions if they do not understand what they are told or what they should do.
--- NOTE | 2020-04-27 11:10 | PM.PNGS ---
Progress Note: A&P Assessment and Plan (1) Osteomyelitis: Code(s): M86.9 - Osteomyelitis, unspecified Status: Acute Assessment and Plan: cont abx and local wound care, plan for OR tomorrow for amputation (2) Diabetic foot ulcer: Qualifiers: Diabetes mellitus type: type 2 Laterality: left Code(s): E11.621 - Type 2 diabetes mellitus with foot ulcer; L97.509 - Non-pressure chronic ulcer of other part of unspecified foot with unspecified severity Status: Acute Assessment and Plan: see above (3) Diabetes mellitus: Qualifiers: Diabetes mellitus type: type 2 Diabetes mellitus terminal clerk insulin use: without nursing home use Diabetes mellitus complication status: with skin complications Diabetes mellitus complication detail: with foot ulcer Qualified Code(s): E11.621 - Type 2 diabetes mellitus with foot ulcer; L97.509 - Non-pressure chronic ulcer of other part of unspecified foot with unspecified severity Code(s): E11.9 - Type 2 diabetes mellitus without complications Status: Acute Assessment and Plan: cont tight control per primary team Subjective Subjective Date/Time Seen: 04/27/20 11:10 no acute issues overnight, seen by ID and recommends amputation as well Review of Systems Constitutional: Constitutional: Denies anorexia, Denies body ache(s), Denies chills, Denies fatigue, Denies fever(s) and Denies weakness Cardiovascular: Cardiovascular: Reports no additional cardiovascular complaints Respiratory: Respiratory: Reports no additional respiratory complaints Gastrointestinal: Gastrointestinal: Reports no additional gastrointestinal complaints Exam Const: General: cooperative, comfortable and no acute distress Resp: Effort & Inspection: normal respiratory effort Auscultation: clear to auscultation bilaterally Cardio: Rate: regular rate Rhythm: regular rhythm GI: Inspection: normal to inspection and non-distended GI Palp: Yes Soft to palpation, No Tenderness to palpation present (GI), No Guarding due to palpation present (GI) and No Rigid due to palpation Auscultation: normal bowel sounds Extrem: Other: L foot dressing C/D/I Objective Data Vital Signs Vital Signs: Vital Signs - 24 hr 04/26/20 14:00 04/26/20 18:00 04/26/20 20:00 Temperature 36.4 C L 36.5 C 36.6 C Pulse Rate 89 83 83 Respiratory Rate 16 16 20 Blood Pressure 145/87 H 174/91 H 171/94 H Pulse Oximetry 100 100 100 04/27/20 00:00 04/27/20 04:00 04/27/20 09:10 Temperature 36.4 C 36.4 C 36.6 C Pulse Rate 87 91 90 Respiratory Rate 20 20 18 Blood Pressure 128/74 144/87 H 164/99 H Pulse Oximetry 99 98 99 Intake/Output Intake/Output: Intake & Output 04/24/20 04/25/20 04/26/20 04/27/20 23:59 23:59 23:59 23:59 Intake Total 1340 3060 830 Output Total 375 3800 1600 Balance 765 -015 -221 Meds/Results Medications: Active Medications Generic Name Dose Route Start Last Admin Trade Name Freq PRN Reason Stop Dose Admin Hydrocodone Bitart/Acetaminophen 1 tab 04/25/20 13:50 04/26/20 05:25 Hydrocodone/Acetaminophen (*Crx) 5-325 Mg Tablet PO 1 tab Q4H PRN Administration Pain Rated 4-6 Albuterol 2 puff 04/25/20 21:19 Albuterol Sulfate (*Sp) Aerosol 1 Puff INHALATION QIDRT PRN Shortness Of Breath Aspirin 81 mg 04/26/20 09:00 04/27/20 08:06 Aspirin 81 Mg Enteric Tablet PO 81 mg DAILY SAMANTHA Administration Atorvastatin Calcium 40 mg 04/26/20 21:00 04/26/20 20:23 Atorvastatin 40 Mg Tablet PO 40 mg HS SAMANTHA Administration Dextrose 12.5 gm 04/25/20 21:20 Dextrose 50% 25 Gm/50 Ml Syringe IV PUSH PRN PRN Hypoglycemia Protocol Glucagon 1 mg 04/25/20 21:20 Glucagon For Inj 1 Mg Vial IM PRN PRN Hypoglycemia Protocol Glucose 15 gm 04/25/20 21:20 Glucose Oral Gel 15 Gm Of Glucse In 37.5 Gm Tube PO PRN PRN Hypoglycemia Protocol Guaifenesin 600 mg
[2020-04-27 11:57] LABS: Glucose Point of Care 186 (65-105)
--- NOTE | 2020-04-27 13:45 | PM.IMPN ---
Progress Note: A&P Assessment and Plan (1) Osteomyelitis: Code(s): M86.9 - Osteomyelitis, unspecified Status: Acute Assessment and Plan: Patient had left diabetic foot wound/cellulitis. He underwent sharp excisional debridement on 03/18/20 and was being followed in wound care. He presented for appointment on 04/25/20 and was noted to have increased swelling and drainage with blister formation and was sent for emergency evaluation. His left foot x-ray was consistent with osteomyelitis of the third metatarsal head and third proximal phalanx base. Mild leukocytosis has resolved. CRP elevated at 5.1. He has been afebrile. General surgery and ID following and input is appreciated. Amputation of 3rd toe and distal 3rd metatarsal has been recommended. Plan for surgery tomorrow. Continue Levaquin and Flagyl (started 04/25). Vancomycin discontinued 04/26 per ID recs. Preliminary blood cultures with NGTD. (2) Diabetic foot ulcer: Qualifiers: Diabetes mellitus type: type 2 Laterality: left Code(s): E11.621 - Type 2 diabetes mellitus with foot ulcer; L97.509 - Non-pressure chronic ulcer of other part of unspecified foot with unspecified severity Status: Acute Assessment and Plan: Left foot as noted above. Continue local wound care with daily silver gel and antibiotics. Plan as above. (3) Diabetes mellitus: Qualifiers: Diabetes mellitus complication detail: with foot ulcer Diabetes mellitus complication status: with skin complications Diabetes mellitus senior living insulin use: without termite inspector use Diabetes mellitus type: type 2 Qualified Code(s): E11.621 - Type 2 diabetes mellitus with foot ulcer; L97.509 - Non-pressure chronic ulcer of other part of unspecified foot with unspecified severity Code(s): E11.9 - Type 2 diabetes mellitus without complications Status: Acute Assessment and Plan: New diagnosis from last hospitalization 03/18/20. A1c at that time was 10.6. Blood sugars evaluated today and have been reasonably well controlled. Last recorded sugar was 177. Continue Accu-Cheks ACHS, sliding-scale insulin, and hypoglycemic protocol Continue Lantus 25 units nightly Resume metformin (4) Hyperlipidemia: Code(s): E78.5 - Hyperlipidemia, unspecified Status: Chronic Assessment and Plan: Continue atorvastatin (5) Hypertension: Qualifiers: Hypertension type: essential hypertension Qualified Code(s): I10 - Essential (primary) hypertension Code(s): I10 - Essential (primary) hypertension Status: Chronic Assessment and Plan: Blood pressure evaluated today in stable at 144/87. Continue losartan Subjective Date/time seen: 04/27/20 13:45 Interval history: Date of service: 04/27/2020 Darin Campos is a 59 year old male with a history of newly diagnosed type 2 diabetes mellitus (03/18/20), hyperlipidemia, and HTN with recent hospitalization from 03/18-03/21/20 for evaluation of left diabetic foot wound who is seen in follow up for osteomyelitis. He is feeling well at this time. He understands that he will have surgery tomorrow for ray amputation. He is a little anxious about surgery and has many questions, but overall is in good spirits. He is disappointed that he waited so long for evaluation and this is upsetting to him. We discussed that moving forward, it is important to maintain proper follow up care. He reports occasional pain in the left foot, but overall has diminished sensation and denies any significant pain. He is ambulating without difficulty. He denies nausea, vomiting, fever, chills, dizziness, lightheadedness, weakness, abdominal pain, diarrhea, shortness of breath, cough, chest pain, palpitations, headache, or body aches. Review of Systems Review of Systems: All systems reviewed & are unremarkable except as noted in HPI and below Exam Narrative: Exam Narrative:
[2020-04-27 16:36] LABS: Glucose Point of Care 239 (65-105)
[2020-04-27] MEDS: metFORMIN HCL 500 MG TABLET PO (16:57)
[2020-04-27] MEDS: INSULIN ASPART (*BKC) 100 UNITS/ML SUB-Q (16:58)
[2020-04-27] MEDS: ATORVASTATIN 40 MG TABLET PO (20:40)
[2020-04-27] MEDS: INSULIN GLARGINE (*BKC) 100 UNITS/ML 12 UNITS SUB-Q (20:45)
[2020-04-27 21:56] LABS: Glucose Point of Care 239 (65-105)
[2020-04-28] VITALS (11 sets, daily range): BP systolic 128–164; BP diastolic 85–100; PULSE 86–105; RESP 14–20; TEMP 35.9–36.6; O2SAT 93–100
[2020-04-28] MEDS: metroNIDAZOLE 500 MG/ISO 100ML 500 MG/100 ML BAG 100 MG IVPB ×4 (03:09→20:42)
[2020-04-28 05:36] LABS: Hematocrit 38.2 % (42.0-52.0); Hemoglobin 12.9 g/dL (14.0-18.0); Mean Corpuscular HGB Conc 33.8 g/dl (32-36); Mean Corpuscular Hemoglobin 27.4 pg (26-34); Mean Corpuscular Volume 81.3 fl (80-100); Mean Platelet Volume 10.4 fl (7.4-10.4); Platelet Count Result 268 k/mm3 (150-375); White Blood Count 10.9 K/mm3 (4.5-10.0)
[2020-04-28 05:55] LABS: Anion Gap 6 mmol/L (8-16); Blood Urea Nitrogen 16 mg/dL (9-20); Calcium 9.3 mg/dL (8.4-10.2); Carbon Dioxide 32 mmol/L (22-30); Chloride 101 mmol/L (98-107); Estimated CRCL calculation 95 ml/min; Estimated Glomerular Filt Rate > 60; Glucose 150 mg/dL (75-110); Sodium 139 mmol/L (137-145)
[2020-04-28] MEDS: LACTATED RINGERS 1,000 ML 30 ML IV CONT (07:00)
[2020-04-28 07:34] LABS: Glucose Point of Care 166 (65-105)
[2020-04-28 08:29] LABS: Glucose Point of Care 150 (65-105)
--- NOTE | 2020-04-28 08:36 | WPDANESEPPF ---
Anes - Initial Pre Proc Eval Procedure: Operation Date: 04/28/20 14:30 Proposed Procedures p Amputation Left Third Toe - Josephine Ann MD Date/Time: 04/28/20 08:36 Surgeon: Lidya Amaro PA-C Pre Op Diagnosis: Diabetic foot wound/osteomyelitis Patient Data Age: 59 Gender: M Height: 5 ft 7 in Weight: 111.1 kg Last Vital Signs Temp 36.6 C 04/28/20 05:38 Pulse 97 04/28/20 05:38 Resp 16 04/28/20 05:38 BP 135/88 04/28/20 05:38 Pulse Ox 99 04/28/20 05:38 Allergies Allergy/AdvReac Type Severity Reaction Status Date / Time Penicillins Allergy Mild Hives Verified 04/26/20 01:27 Home Medications Medication Instructions Recorded Confirmed Type albuterol sulfate [Proventil HFA] 2 puff INHALATION QIDRT PRN #6.7 gm 03/21/20 04/25/20 Rx aspirin [Adult Aspirin Regimen] 81 mg PO DAILY #30 tablet 03/21/20 04/25/20 Rx atorvastatin 40 mg PO HS #30 tablet 03/21/20 04/25/20 Rx blood sugar diagnostic [OneTouch #1 pkg 03/21/20 04/15/20 Rx Verio test strips] insulin glargine [Lantus Solostar 25 unit SUB-Q HS 30 Days #7.5 ml 03/21/20 04/25/20 Rx U-100 Insulin] lancets [OneTouch Delica Plus #1 pkg 03/21/20 04/15/20 Rx Lancet] losartan 100 mg PO DAILY #30 tablet 03/21/20 04/25/20 Rx metformin [Glucophage] 500 mg PO BIDWM #60 tablet 03/21/20 04/25/20 Rx pen needle, diabetic [Advocate Pen #100 each 03/21/20 04/15/20 Rx Needle] silver [Silver-Sept] 1 applic TOPICAL DAILY #45 gm 03/21/20 04/25/20 Rx Laboratory Tests 04/27/20 04/27/20 04/27/20 11:51 16:25 20:19 WBC RBC Hgb Hct MCV MCH MCHC RDW Plt Count MPV Sodium Potassium Chloride Carbon Dioxide Anion Gap BUN Creatinine Estim Creat Clear Calc Estimated GFR Glucose POC Capillary Glucose 186 mg/dl H mg/dl 239 mg/dl H mg/dl 239 mg/dl H mg/dl (65-105) (65-105) (65-105) Calcium C-Reactive Protein 04/28/20 04/28/20 04/28/20 04:45 04:45 05:46 WBC 10.9 K/mm3 H K/mm3 (4.5-10.0) RBC 4.70 M/mm3 M/mm3 (4.6-6.20) Hgb 12.9 g/dL L g/dL (14.0-18.0) Hct 38.2 % L % (42.0-52.0) MCV 81.3 fl fl (80-100) MCH 27.4 pg pg (26-34) MCHC 33.8 g/dl g/dl (32-36) RDW 14.0 % % (11.5-14.5) Plt Count 268 k/mm3 k/mm3 (150-375) MPV 10.4 fl fl (7.4-10.4) Sodium 139 mmol/L mmol/L (137-145) Potassium 4.0 mmol/L mmol/L (3.4-5.0) Chloride 101 mmol/L mmol/L (98-107) Carbon Dioxide 32 mmol/L H mmol/L (22-30) Anion Gap 6 mmol/L L mmol/L (8-16) BUN 16 mg/dL mg/dL (9-20) Creatinine 0.90 mg/dL mg/dL (0.7-1.3) Estim Creat Clear Calc 95 ml/min ml/min Estimated GFR > 60 (59 - ) Glucose 150 mg/dL H mg/dL (75-110) POC Capillary Glucose 166 mg/dl H mg/dl (65-105) Calcium 9.3 mg/dL mg/dL (8.4-10.2) C-Reactive Protein 2.0 mg/dL H mg/dL (<1.0) 04/28/20 08:22 WBC RBC Hgb Hct MCV MCH MCHC RDW Plt Count MPV Sodium Potassium Chloride Carbon Dioxide Anion Gap BUN Creatinine Estim Creat Clear Calc Estimated GFR Glucose POC Capillary Glucose 150 mg/dl H mg/dl (65-105) Calcium C-Reactive Protein Patient hx anesthesia problems: none Family hx anesthesia problems: none [facility] Past Medical History Medical History Diabetes mellitus, new onset Diabetic foot ulcer Hyperlipidemia Hypertension Surgical History Surgical Hist
--- NOTE | 2020-04-28 08:57 | WPDHPUPDATE1 ---
History and Physical Update Update Date/Time: 04/28/20 08:57 History and Physical has been reviewed, including an updated exam of the patient. There are NO changes in the patient's condition. Risks, benefits, and alternatives have been discussed and questions answered. Patient agrees to proceed with procedure.
[2020-04-28 09:52] LABS: Glucose Point of Care 172 (65-105)
--- NOTE | 2020-04-28 10:01 | PM.PROC ---
Procedure Note - Detailed Date of procedure: 04/28/20 Pre-op diagnosis: Diabetic foot wound/osteomyelitis Post-op diagnosis: same Procedure performed: Left 3rd ray and metatarsal head amputation Description of procedure: The patient was taken to the operating room and placed in the supine position. After adequate induction of general anesthesia, patient was prepped and draped in the normal sterile fashion. A time-out was then done to verify the patient's identity, as well as the procedure being performed. I began by examining the 3rd ray on the left foot. It was noted that there was purulent discharge on the plantar aspect as well as some necrotic appearing skin. There was a 2nd wound on the plantar surface of the 3rd metatarsal head. Given this, went ahead and incised the skin around the 3rd ray and metatarsal head. Once this was done I carried the incision down through the subcutaneous tissue to the level of the bone. The bone was noted to contain osteomyelitis and was removed as part of the amputation. Once this was done, I sent this to pathology for further review. I then debrided more of the metatarsal head with a rongeur. Once it was back to healthy-appearing bone, I washed out the wound. Hemostasis was gained with the Bovie cautery. I then packed the open wound with Betadine-soaked gauze. Sterile dressing was placed. The patient tolerated the procedure well and was extubated in the operating room postoperative. He will be transferred to the recovery room in stable condition. Implants: none Anesthesia: PABLOA Surgeon: Josephine Ann MD Estimated blood loss (mL): 20 Drains: No Packing: Yes Pathology: yes Complications: No immediate complications Condition: stable Disposition: PACU Findings: osteomyelitis of the 3rd ray and metatarsal head
[2020-04-28] MEDS: guaiFENesin 12 HR 600 MG TABCR PO ×2 (11:04→20:42)
[2020-04-28] MEDS: LOSARTAN POTASSIUM 100 MG TABLET PO (11:04)
[2020-04-28 11:43] LABS: Glucose Point of Care 224 (65-105)
[2020-04-28] MEDS: INSULIN ASPART (*BKC) 100 UNITS/ML SUB-Q ×2 (12:35→17:07)
--- NOTE | 2020-04-28 13:37 | WPDINFPN2 ---
Progress Note: A&P Assessment and Plan (1) Osteomyelitis: Code(s): M86.9 - Osteomyelitis, unspecified Status: Acute Assessment and Plan: 1. acute OM L 3rd toe and MT. POD # 0 ray amputation. Operative findings reviewed. 2. DM, recent new Dx, coming under control REC Levofloxacin and metronidazole same. If stable by tomorrow, can switch to oral therapy, and continue both through 05/11/20, for potential soft tissue infection surrounding the resected bone. Subjective Date/time seen: 04/28/20 13:37 Interval history: no complaints Exam Narrative: Exam Narrative: afebrile Const: General: no acute distress Eyes: General: appearance normal, both eyes and all related structures Resp: Effort & Inspection: normal respiratory effort Auscultation: clear to auscultation bilaterally Cardio: Rate: regular rate Rhythm: regular rhythm Heart sounds: no murmurs Skin: General skin exam: normal color and no rashes or lesions noted Extrem: Other: foot dressed Objective Data Vital Signs Vital Signs: Vital Signs - 24 hr 04/27/20 14:00 04/27/20 18:00 04/27/20 20:59 Temperature 36.6 C 36.5 C 36.4 C Pulse Rate 81 84 89 Respiratory Rate 15 17 18 Blood Pressure 154/95 H 147/81 H 170/98 H Pulse Oximetry 99 99 100 04/27/20 21:51 04/28/20 02:00 04/28/20 05:38 Temperature 36.6 C 36.6 C Pulse Rate 89 92 97 Respiratory Rate 18 16 16 Blood Pressure 149/92 H 135/88 Pulse Oximetry 100 100 99 04/28/20 08:18 04/28/20 09:45 04/28/20 10:00 Temperature 36.3 C L 36.2 C L Pulse Rate 105 H 105 H 99 Respiratory Rate 20 16 14 Blood Pressure 158/95 H 139/98 H 139/97 H Pulse Oximetry 99 100 98 04/28/20 10:15 04/28/20 10:30 04/28/20 11:00 Temperature 35.9 C L Pulse Rate 96 92 86 Respiratory Rate 14 16 16 Blood Pressure 147/93 H 148/100 H 132/95 H Pulse Oximetry 99 99 100 04/28/20 11:15 04/28/20 11:45 Temperature 36.6 C 35.9 C L Pulse Rate 92 93 Respiratory Rate 18 18 Blood Pressure 164/99 H 133/88 Pulse Oximetry 100 93 Intake/Output Intake/Output: Intake & Output 04/25/20 04/26/20 04/27/20 04/28/20 23:59 23:59 23:59 23:59 Intake Total 1340 3060 2460 1440 Output Total 375 3800 2050 1550 Balance 965 -740 410 -110 Meds/Results Medications: Active Medications Generic Name Dose Route Start Last Admin Trade Name Freq PRN Reason Stop Dose Admin Hydrocodone Bitart/Acetaminophen 1 tab 04/25/20 13:50 04/26/20 05:25 Hydrocodone/Acetaminophen (*Crx) 5-325 Mg Tablet PO 1 tab Q4H PRN Administration Pain Rated 4-6 Albuterol 2 puff 04/25/20 21:19 Albuterol Sulfate (*Sp) Aerosol 1 Puff INHALATION QIDRT PRN Shortness Of Breath Aspirin 81 mg 04/26/20 09:00 04/28/20 11:00 Aspirin 81 Mg Enteric Tablet PO Not Given DAILY SAMANTHA Atorvastatin Calcium 40 mg 04/26/20 21:00 04/27/20 20:40 Atorvastatin 40 Mg Tablet PO 40 mg HS SAMANTHA Administration Dextrose 12.5 gm 04/25/20 21:20 Dextrose 50% 25 Gm/50 Ml Syringe IV PUSH PRN PRN Hypoglycemia Protocol Glucagon 1 mg 04/25/20 21:20 Glucagon For Inj 1 Mg Vial IM PRN PRN Hypoglycemia Protocol Glucose 15 gm 04/25/20 21:20 Glucose Oral Gel 15 Gm Of Glucse In 37.5 Gm Tube PO PRN PRN Hypoglycemia Protocol Guaifenesin 600 mg 04/27/20 09:00 04/28/20 11:04 Guaifenesin 12 Hr 600 Mg Tabcr PO 600 mg Q12HR SAMANTHA Administration Guaifenesin/Dextromethorphan 5 ml 04/26/20 21:00 04/26/20 20:22 Guaifenesin/Dextromethorphan 10 Ml Udc PO 5 ml HS PRN Administration Cough Levofloxacin/Dextrose 750 mg in 150 mls @ 100 mls/hr 04/26/20 18:00 04/27/20 18:36 Levaquin 750 Mg/D5w 150 Ml IVPB Infused Q24H SAMANTHA Infusion Metronidazole 500 mg in 100 mls @ 100 mls/hr 04/25/20 21:00 04/28/20 09:47 Flagyl 500 Mg/Iso Soln 100 Ml IVPB Infused Q6H SAMANTHA Infusion Dextrose 1,000 mls @ 100 mls/hr 04/25/20 21:20 Dextrose 5% 1,000 Ml
--- NOTE | 2020-04-28 14:30 | PM.IMPN ---
Progress Note: A&P Assessment and Plan (1) Osteomyelitis: Qualifiers: Laterality: left Osteomyelitis location: foot Osteomyelitis type: unspecified type Qualified Code(s): M86.9 - Osteomyelitis, unspecified Code(s): M86.9 - Osteomyelitis, unspecified Status: Acute Assessment and Plan: Patient had left diabetic foot wound/cellulitis. He underwent sharp excisional debridement on 03/18/20 and was being followed in wound care. He presented for appointment on 04/25/20 and was noted to have increased swelling and drainage with blister formation and was sent for emergency evaluation. His left foot x-ray was consistent with osteomyelitis of the third metatarsal head and third proximal phalanx base. He has mild leukocytosis. CRP improved. He has been afebrile. He underwent left 3rd ray and metatarsal head amputation today by Dr. Ann and tolerated the procedure well. General surgery and ID following and input is appreciated. Continue Levaquin and Flagyl (started 04/25). Plan to transition to oral antibiotic therapy tomorrow through 05/11/2020 per ID recommendations. Hopeful discharge tomorrow if improvement. Vancomycin discontinued 04/26 per ID recs. Preliminary blood cultures with NGTD. (2) Diabetic foot ulcer: Qualifiers: Diabetes mellitus type: type 2 Laterality: left Code(s): E11.621 - Type 2 diabetes mellitus with foot ulcer; L97.509 - Non-pressure chronic ulcer of other part of unspecified foot with unspecified severity Status: Acute Assessment and Plan: Left foot as noted above. Continue local wound care with daily silver gel and antibiotics. Plan as above. (3) Diabetes mellitus: Qualifiers: Diabetes mellitus complication detail: with foot ulcer Diabetes mellitus complication status: with skin complications Diabetes mellitus fdc insulin use: without salvage determiner use Diabetes mellitus type: type 2 Qualified Code(s): E11.621 - Type 2 diabetes mellitus with foot ulcer; L97.509 - Non-pressure chronic ulcer of other part of unspecified foot with unspecified severity Code(s): E11.9 - Type 2 diabetes mellitus without complications Status: Acute Assessment and Plan: New diagnosis from last hospitalization 03/18/20. A1c at that time was 10.6. Blood sugars evaluated today and have been reasonably well controlled, a bit higher last night and today as compared to previous readings. Last recorded sugar was 224. Continue Accu-Cheks ACHS, high-dose sliding-scale insulin, and hypoglycemic protocol Continue Lantus 25 units nightly and home metformin (4) Hyperlipidemia: Code(s): E78.5 - Hyperlipidemia, unspecified Status: Chronic Assessment and Plan: Continue atorvastatin (5) Hypertension: Qualifiers: Hypertension type: essential hypertension Qualified Code(s): I10 - Essential (primary) hypertension Code(s): I10 - Essential (primary) hypertension Status: Chronic Assessment and Plan: Blood pressure evaluated today in stable at 135/88. Continue losartan Subjective Date/time seen: 04/28/20 14:30 Interval history: Date of service: 04/28/2020 Darin Campos is a 59 year old male with a history of newly diagnosed type 2 diabetes mellitus (03/18/20), hyperlipidemia, and HTN with recent hospitalization from 03/18-03/21/20 for evaluation of left diabetic foot wound who is seen in follow up for osteomyelitis. He has just returned from surgery and has tolerated the procedure well. He is feeling well and has no complaints. He had a brief episode of pain in his left foot but this quickly passed and his pain is well controlled at this time. He reports occasional cough but feels that this is improving. He denies shortness of breath, chest pain, palpitations, nausea, vomiting, fever, chills, dizziness, or lightheadedness. His last bowel movement was 3 days ago. He is passing gas an
[2020-04-28] MEDS: polyethylene glycoL 3350 17 GM POWD.PACK PO (15:30)
[2020-04-28] MEDS: metFORMIN HCL 500 MG TABLET PO (16:55)
[2020-04-28 17:16] LABS: Glucose Point of Care 249 (65-105)
[2020-04-28] MEDS: DOCUSATE SODIUM 100 MG CAPSULE PO (20:42)
[2020-04-28] MEDS: ATORVASTATIN 40 MG TABLET PO (20:42)
[2020-04-28] MEDS: INSULIN GLARGINE (*BKC) 100 UNITS/ML 25 UNITS SUB-Q (20:47)
[2020-04-28 21:23] LABS: Glucose Point of Care 307 (65-105)
[2020-04-29] VITALS: BP 131/80; PULSE 93; RESP 20; TEMP 36.2; O2SAT 99
[2020-04-29] MEDS: metroNIDAZOLE 500 MG/ISO 100ML 500 MG/100 ML BAG 100 MG IVPB ×3 (03:00→15:21)
[2020-04-29 04:00] VITALS: BP 134/83; PULSE 85; RESP 20; TEMP 36.1; O2SAT 99
[2020-04-29 05:47] LABS: Hematocrit 39.6 % (42.0-52.0); Hemoglobin 13.2 g/dL (14.0-18.0); Mean Corpuscular HGB Conc 33.3 g/dl (32-36); Mean Corpuscular Hemoglobin 27.6 pg (26-34); Mean Corpuscular Volume 82.8 fl (80-100); Mean Platelet Volume 10.2 fl (7.4-10.4); Platelet Count Result 273 k/mm3 (150-375); Red Blood Count 4.78 M/mm3 (4.6-6.20); Red Cell Distribution Width 14.2 % (11.5-14.5); White Blood Count 10.6 K/mm3 (4.5-10.0)
[2020-04-29 06:05] LABS: Anion Gap 7 mmol/L (8-16); Blood Urea Nitrogen 16 mg/dL (9-20); Calcium 9.4 mg/dL (8.4-10.2); Carbon Dioxide 31 mmol/L (22-30); Chloride 100 mmol/L (98-107); Estimated CRCL calculation 95 ml/min; Estimated Glomerular Filt Rate > 60; Glucose 166 mg/dL (75-110); Potassium 4.3 mmol/L (3.4-5.0); Sodium 138 mmol/L (137-145)
--- NOTE | 2020-04-29 07:00 | WPDANESPN ---
Anes - Prog Note Post-Op Date/Time: 04/29/20 07:00 Cardiovascular status: normal Respiratory status: normal Airway patency: baseline Mental status: baseline Post-Op hydration status: normal Vital Signs: Last Vital Signs Temp 36.1 C L 04/29/20 04:00 Pulse 85 04/29/20 04:00 Resp 20 04/29/20 04:00 BP 134/83 04/29/20 04:00 Pulse Ox 99 04/29/20 04:00 Pain Score (VAS): 1 I/O: Intake & Output 04/28/20 04/28/20 04/29/20 15:59 23:59 07:59 Intake Total 1240 1140 490 Output Total 1100 500 850 Balance 140 640 -360 Laboratory Tests 04/29/20 04:56 04/29/20 04:56 04/28/20 04/28/20 04/28/20 05:46 08:22 09:49 WBC RBC Hgb Hct MCV MCH MCHC RDW Plt Count MPV Sodium Potassium Chloride Carbon Dioxide Anion Gap BUN Creatinine Estim Creat Clear Calc Estimated GFR Glucose POC Capillary Glucose 166 H 150 H 172 H Calcium 04/28/20 04/28/20 04/28/20 11:40 16:55 20:39 WBC RBC Hgb Hct MCV MCH MCHC RDW Plt Count MPV Sodium Potassium Chloride Carbon Dioxide Anion Gap BUN Creatinine Estim Creat Clear Calc Estimated GFR Glucose POC Capillary Glucose 224 H 249 H 307 H Calcium 04/29/20 04/29/20 04:56 04:56 WBC 10.6 H RBC 4.78 Hgb 13.2 L Hct 39.6 L MCV 82.8 MCH 27.6 MCHC 33.3 RDW 14.2 Plt Count 273 MPV 10.2 Sodium 138 Potassium 4.3 Chloride 100 Carbon Dioxide 31 H Anion Gap 7 L BUN 16 Creatinine 0.90 Estim Creat Clear Calc 95 Estimated GFR > 60 Glucose 166 H POC Capillary Glucose Calcium 9.4 Patient Feedback: Patient satisfied with anesthetic care.
[2020-04-29 07:27] LABS: Glucose Point of Care 169 (65-105)
[2020-04-29] MEDS: guaiFENesin 12 HR 600 MG TABCR PO (08:04)
[2020-04-29] MEDS: ASPIRIN 81 MG ENTERIC TABLET PO (08:04)
[2020-04-29] MEDS: LOSARTAN POTASSIUM 100 MG TABLET PO (08:05)
[2020-04-29] MEDS: polyethylene glycoL 3350 17 GM POWD.PACK PO (08:05)
[2020-04-29] MEDS: SILVERGEL (ELTA) 45 ML 1 APPLIC TOPICAL (08:05)
[2020-04-29] MEDS: metFORMIN HCL 500 MG TABLET PO (08:05)
[2020-04-29] MEDS: DOCUSATE SODIUM 100 MG CAPSULE PO (08:05)
[2020-04-29 10:00] VITALS: BP 149/89; PULSE 87; RESP 16; TEMP 36.4; O2SAT 100
[2020-04-29 11:38] LABS: Glucose Point of Care 159 (65-105)
[2020-04-29 14:00] VITALS: BP 151/95; PULSE 99; RESP 16; TEMP 36.6; O2SAT 100
--- NOTE | 2020-04-29 15:54 | PM.PNGS ---
Progress Note: A&P Assessment and Plan (1) Osteomyelitis: Qualifiers: Osteomyelitis type: unspecified type Osteomyelitis location: foot Laterality: left Qualified Code(s): M86.9 - Osteomyelitis, unspecified Code(s): M86.9 - Osteomyelitis, unspecified Status: Acute Assessment and Plan: POD#1 left 3rd ray and metatarsal head amputation. Post-op drsg changed with an area of tunneling towards the midfoot on the plantar aspect of the 3rd metatarsal. Purulent drainage noted from this area. We will initiate packing to this area of tunneling with iodoform gauze and cover with xeroform and plain gauze daily. Continue oral antibiotics as recommended by ID. Ojeda to discharge the patient from a surgical standpoint. Follow-up with Dr. Ann in 1 week in the wound clinic. 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 Discussed with patient that glycemic control is important for wound healing. Additional Plan Discussed the patient's case and plan of care with Dr. Ann. Subjective Subjective Date/Time Seen: 04/29/20 14:00 Post Op day: 1 Patient reports: no new complaints and feels better Interval history: Patient feeling well today. States he had some throbbing pain in his left foot earlier today but this improved without pain medication. Denies any pain at the time of my exam. No other complaints at this time. Review of Systems Review of Systems: All systems reviewed & are unremarkable except as noted in HPI and below Constitutional: Constitutional: Denies chills and Denies fever(s) Exam Const: General: comfortable and no acute distress Nutritional Appearance: obese Orientation/consciousness: patient oriented x3 Skin: Other: Left foot dressing removed. Wound bed is pink with some granulation tissue forming and the 3rd metatarsal exposed. (See wound care note for measurements) An area of tunneling was noted posterior to the 3rd metatarsal that tunnels towards the midfoot about 6 cm where there is a blister externally seen on the skin - purulent drainage was expressed from the area of tunneling. mild +erythema/swelling left foot Neuro: General: patient oriented x3 Extrem: General: no calf tenderness Right lower extremity: normal to inspection and full ROM; no edema Objective Data Vital Signs Vital Signs: Vital Signs - 24 hr 04/28/20 20:00 04/29/20 00:00 04/29/20 04:00 Temperature 97.8 F 97.2 F L 97 F L Pulse Rate 98 93 85 Respiratory Rate 20 20 20 Blood Pressure 128/85 131/80 134/83 Pulse Oximetry 100 99 99 04/29/20 10:00 04/29/20 14:00 Temperature 97.5 F L 97.8 F Pulse Rate 87 99 Respiratory Rate 16 16 Blood Pressure 149/89 H 151/95 H Pulse Oximetry 100 100 Intake/Output Intake/Output: Intake & Output 04/26/20 04/27/20 04/28/20 04/29/20 23:59 23:59 23:59 23:59 Intake Total 3060 2460 2580 1070 Output Total 3800 2050 2500 850 Balance -740 410 80 220 Meds/Results Medications: Active Medications Generic Name Dose Route Start Last Admin Trade Name Freq PRN Reason Stop Dose Admin Hydrocodone Bitart/Acetaminophen 1 tab 04/25/20 13:50
[2020-04-29 16:12] LABS: Glucose Point of Care 153 (65-105)
--- NOTE | 2020-04-29 16:24 | PM.DS ---
DS: Admitting Diagnosis Admitting Diagnosis Admitting Diagnosis: Diabetic foot wound/osteomyelitis DS: Discharge Diagnosis Discharge Diagnosis (1) Osteomyelitis: Qualifiers: Osteomyelitis type: unspecified type Osteomyelitis location: foot Laterality: left Qualified Code(s): M86.9 - Osteomyelitis, unspecified Code(s): M86.9 - Osteomyelitis, unspecified Status: Acute Assessment and Plan: Patient had left diabetic foot wound/cellulitis. He underwent sharp excisional debridement on 03/18/20 and was being followed in wound care. He presented for appointment on 04/25/20 and was noted to have increased swelling and drainage with blister formation and was sent for emergency evaluation. His left foot x-ray was consistent with osteomyelitis of the third metatarsal head and third proximal phalanx base. He had mild leukocytosis. CRP improved. He remained afebrile. He underwent left 3rd ray and metatarsal head amputation on 04/29/[address] Ann and tolerated the procedure well. He received IV Levaquin and Flagyl which she will continue orally as an outpatient through 05/11/2020 per infectious disease recommendations. Preliminary blood culture showed no growth to date and final cultures will be monitored. There was an area of tunneling that was packed with iodoform. Patient will continue daily dressing changes and will follow up with Dr. Ann in the wound clinic in 1 week. (2) Diabetic foot ulcer: Qualifiers: Diabetes mellitus type: type 2 Laterality: left Code(s): E11.621 - Type 2 diabetes mellitus with foot ulcer; L97.509 - Non-pressure chronic ulcer of other part of unspecified foot with unspecified severity Status: Acute Assessment and Plan: Left foot as noted above. He was educated on how to perform dressing changes. Wound clinic follow up in 1 week. (3) Diabetes mellitus: Qualifiers: Diabetes mellitus type: type 2 Diabetes mellitus intermediate designer insulin use: without intermediate designer use Diabetes mellitus complication status: with skin complications Diabetes mellitus complication detail: with foot ulcer Qualified Code(s): E11.621 - Type 2 diabetes mellitus with foot ulcer; L97.509 - Non-pressure chronic ulcer of other part of unspecified foot with unspecified severity Code(s): E11.9 - Type 2 diabetes mellitus without complications Status: Acute Assessment and Plan: New diagnosis from last hospitalization 03/18/20. A1c at that time was 10.6. Blood sugars were monitored closely during his admission and were reasonably well controlled. Most in the 150-170s. He will continue 25 units Lantus nightly and metformin bid. We discussed importance of adequate glycemic control extensively. Recommended monitoring blood sugars TID and recording for PCP review. (4) Hyperlipidemia: Code(s): E78.5 - Hyperlipidemia, unspecified Status: Chronic Assessment and Plan: Continue atorvastatin (5) Hypertension: Qualifiers: Hypertension type: essential hypertension Qualified Code(s): I10 - Essential (primary) hypertension Code(s): I10 - Essential (primary) hypertension Status: Chronic Assessment and Plan: Blood pressure evaluated daily and remained well-controlled. Continue losartan DS: Summary Hospital Course Reason for hospitalization: Left diabetic foot wound Hospital Course: Date of admission: 04/25/2020 Date of discharge: 04/29/2020 Darin Campos is a 59 year old male with a history of newly diagnosed type 2 diabetes mellitus (03/18/20), hyperlipidemia, and HTN with recent hospitalization from 03/18-03/21/20 for evaluation of left diabetic foot wound s/p sharp excisional debridement who was referred to the emergency department on 04/25/2020 following a wound care appointment in which it was noted that his left foot had increased purulent drainage. At presentation, vital signs stable, afebrile, WBC 10.7,
== END 2020-04-29 17:41 | disposition home or self-care (01) | DRG 305 ==
LOC: ANHED 11:09 → ANH2MED 14:33
PROVIDERS: Physician Assistant; Surgery; Admitting Provider Hospitalist; Emergency Provider Emergency Medicine; PCP Physician Assistant; Visit Provider Internal Medicine
PROC: 0Y6N0ZC Detachment at Left Foot, Partial 3rd Ray, Open Approach (ICD-10-PCS; principal; 2020-04-28 14:30)
DX: E11.69 Type 2 diabetes mellitus with other specified complication (principal); M86.172 Other acute osteomyelitis, left ankle and foot; E11.621 Type 2 diabetes mellitus with foot ulcer; L97.509 Non-pressure chronic ulcer of other part of unspecified foot with unspecified severity; I10 Essential (primary) hypertension; E78.5 Hyperlipidemia, unspecified; E66.01 Morbid (severe) obesity due to excess calories; Z68.38 Body mass index [BMI] 38.0-38.9, adult; Z90.49 Acquired absence of other specified parts of digestive tract
CPT/HCPCS: 36415; 73630; 80048; 83605; 85025; 85027; 85610; 85652; 85730; 86140; 87040; 88305; 88311; 93971; 96365; 96366; 96367; 99285; A9270; G0378; G0379; J1100; J1815; J1956; J2250; J2405; J2704; J3010; J3370; J7120

== ENCOUNTER 2020-07-16 07:23 | Outpatient (RCR) | payer MEDICAID, OTHER, SELFPAY ==
[2020-04-17 12:52] VITALS: BMI 42.8
--- NOTE | 2020-05-07 09:45 | WPDWOUNDNOTE ---
Wound Care Note Date/Time: 05/07/20 09:45 Pt reports he is doing well. Reports foot has not felt this good in years. Pt doing well c local wound care and reports little to no drainage. Assessment and Plan Assessment and plan (1) Diabetic foot ulcer: Qualifiers: Diabetes mellitus type: type 2 Laterality: left Code(s): E11.621 - Type 2 diabetes mellitus with foot ulcer; L97.509 - Non-pressure chronic ulcer of other part of unspecified foot with unspecified severity Status: Acute Assessment and Plan: doing well, cont local wound care, cont abx per ID, f/u 1 mo, will see wound clinic weekly (2) Osteomyelitis: Qualifiers: Osteomyelitis type: unspecified type Osteomyelitis location: foot Laterality: left Qualified Code(s): M86.9 - Osteomyelitis, unspecified Code(s): M86.9 - Osteomyelitis, unspecified Status: Acute Assessment and Plan: see above Review of Systems Review of Systems: All systems reviewed & are unremarkable except as noted in HPI and below Exam Const: General: cooperative, comfortable and no acute distress Orientation/consciousness: patient oriented x3 Skin: Other: L 3rd ray amp - good granulation tissue c no s/s active infection, measurement 3x4x7 c tunnel tracking on inferior plantar surface
--- NOTE | 2020-06-04 09:04 | P.PNWOUND_ITS ---
Wound Care Note Date/Time: 06/04/20 09:04 doing well, no c/o, reports wound seems to be healing nicely, no s/s infection Assessment and Plan Assessment and plan (1) Osteomyelitis: Code(s): M86.9 - Osteomyelitis, unspecified Status: Acute Assessment and Plan: s/p 3rd ray amp, doing well, cont local wound care, off abx c no s/s infection, postop boot (2) Diabetes mellitus: Qualifiers: Diabetes mellitus type: type 2 Diabetes mellitus halfway insulin use: without intermediate manager use Diabetes mellitus complication status: with skin complications Diabetes mellitus complication detail: with foot ulcer Qualified Code(s): E11.621 - Type 2 diabetes mellitus with foot ulcer; L97.509 - Non- pressure chronic ulcer of other part of unspecified foot with unspecified severity Code(s): E11.9 - Type 2 diabetes mellitus without complications Status: Acute Assessment and Plan: tight bs control per primary Review of Systems Review of Systems: All systems reviewed & are unremarkable except as noted in HPI and below Exam Const: General: cooperative, comfortable and no acute distress Resp: Effort & Inspection: normal respiratory effort Auscultation: clear to auscultation bilaterally Cardio: Rate: regular rate Rhythm: regular rhythm GI: Inspection: normal to inspection GI Palp: Yes Soft to palpation, No Tenderness to palpation present (GI), No Guarding due to palpation present (GI) and No Hernia present Extrem: Other: L foot 3rd ray amp site - good granulation base measuring 2x1.6x0.6 cm, no s/s drainage, infection
== END 2020-07-16 23:59 | disposition home or self-care (01) ==
LOC: ANHWOC 07:23
PROVIDERS: PCP Physician Assistant; Referring Provider Surgery; Visit Provider Surgery
DX: L02.612 Cutaneous abscess of left foot (principal)
CPT/HCPCS: 99212; 99213; G0463

== ENCOUNTER 2020-09-04 08:00 | Outpatient (RCR) | payer OTHER, SELFPAY ==
[2020-07-17 00:03] VITALS: BMI 42.8
--- NOTE | 2020-09-18 08:34 | PCWOUND ---
WOCN NOTE Patient did not show up for appointment or call.
== END 2020-09-24 14:42 | disposition home or self-care (01) ==
LOC: ANHWOC 08:00
PROVIDERS: PCP Physician Assistant; Visit Provider Surgery
DX: Z47.81 Encounter for orthopedic aftercare following surgical amputation (principal); L02.612 Cutaneous abscess of left foot; Z89.422 Acquired absence of other left toe(s)
CPT/HCPCS: 99212; 99213; G0463

== ENCOUNTER 2022-01-09 23:24 | Emergency (ER) | payer OTHER, SELFPAY ==
--- NOTE | ~2022-01-09 | XR_ITS ---
XR ankle RT min 3V 01/10/2022 00:55 Indication: Left ankle pain Procedure: 4 views left ankle Comparison: No prior studies for comparison. Findings: There is osteoarthritis of the ankle. No acute fracture or traumatic malalignment. Ankle mo rtise intact. There are small degenerative calcaneal enthesophytes. Talar dome is normal. Impression: 1: No acute fracture. Reviewed, dictated and finalized at location A. Impression: 1: No acute fracture.
[2022-01-09 23:31] VITALS: BP 178/97; PULSE 109; RESP 22; TEMP 36.6; O2SAT 100
--- NOTE | 2022-01-10 00:05 | ED.WOUNDLAC ---
HPI - Wound/Laceration General Chief Complaint: Wound/Laceration Stated Complaint: right lower leg wound Time Seen by Provider: 01/09/22 23:37 History of Present Illness HPI narrative: 61-year-old male with a history of diabetes presents the emergency room for evaluation of a wound to his right ankle. Patient states yesterday he noticed a small pruritic wound to his right medial ankle and began scratching it. Woke up this morning and that small wound grew in size to approximately 11 cm. States he has noticed a foul smell and is draining fluid Related Data Allergies Allergy/AdvReac Type Severity Reaction Status Date / Time Penicillins Allergy Mild Hives Verified 01/09/22 23:46 Review of Systems Review of Systems: CONSTITUTIONAL: Denies fever, chills, or sweats. EYES: Denies visual changes, redness, or discharge. ENT: Denies rhinorrhea, congestion, sore throat, or otalgia. CARDIOVASCULAR: Denies chest pain, palpitations, or edema. RESPIRATORY: Denies cough or dyspnea. GASTROINTESTINAL: Denies abdominal pain, nausea, vomiting, or diarrhea. GENITOURINARY: Denies dysuria or hematuria. SKIN: Reports wound right leg MUSCULOSKELETAL: Denies back pain, joint pain, or myalgia. NEUROLOGIC: Denies headache, numbness, dizziness, or weakness. PSYCHIATRIC: Denies anxiety or depression. [facility] Past Medical History Medical History Diabetes mellitus, new onset Diabetic foot ulcer Hyperlipidemia Hypertension Surgical History Surgical History Hx laparoscopic cholecystectomy S/P debridement left foot Family History Family History Sibling Family history of gallbladder disease Father Family history of chronic obstructive pulmonary disease Diabetes mellitus Mother Family history of heart disease in male family member before age 55 Diabetes mellitus Hypertension Heart disease Social History Social History Social History: the patient has 1 son. Who is a durable power assistant district attorney for healthcare. The patient desires to be a full code. 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 He does have girlfriend that helps him out. Patient stated he never smoked. He does not use any illicit drugs or marijuana. Patient stated he has not drink in years. Smoking status: Never smoker Alcohol intake: never Substance use: never Substance use type: does not use Additional living arrangements comments: Lives in [place]. Never . Gender identity (if verbalized by the patient): Male Sexual Orientation (if Verbalized by the Patient): Straight or Heterosexual Spiritual care concerns: No Exam Narrative: GENERAL: Well-appearing, well-nourished, no physical limitations, and in no acute distress. HEAD: Normocephalic, atraumatic. EYES: Conjunctivae normal, PERRLA and EOMI. CHEST: Clear to auscultation. No respiratory distress. No wheezes rales or rhonchi. No tenderness. HEART: Regular rate and rhythm. No murmur heard. Normal peripheral pulses. ABDOMEN: Soft, nontender, nondistended, normal active bowel sounds. EXTREMITIES: Normal range of motion. No edema. No clubbing or cyanosis SKIN: RLL: Foul-smelling large ulcer over the right medial malleolus with surrounding erythema. Serous drainage noted. No streaking noted NEURO: No focal deficits. Alert and oriented x3. MAEW. CN's II-XI intact bilaterally, normal gait PSYCH: Cooperative. Normal mood and affect. Course Vital Signs Vital signs: Vital Signs Temperature 36.6 C 01/09/22 23:31 Pulse Rate 109 H 01/09/22 23:31 Respiratory Rate 22 H 01/09/22 23:31 Blood Pressure 178/97 H 01/09/22 23:31 Pulse Oximetry 100 01/09/22 23:31 Oxygen Delivery Room Air 01/09/22 23:31 Temperature 36.6 C 01/09/22 23
[2022-01-10 00:31] LABS: SARS-CoV-2 RNA PCR Negative
[2022-01-10] MEDS: SODIUM CHLORIDE 0.9% IV 1,000 ML 999 ML IV CONT (00:37)
[2022-01-10 00:38] LABS: Basophils Percent Auto 0.4 % (0.2-1.2); Eosinophils Absolute Auto 0.3 K/mm3 (0-0.3); Eosinophils Percent Auto 3.6 % (0-4.4); Hematocrit 36.3 % (42.0-52.0); Hemoglobin 11.9 g/dL (14.0-18.0); Immature Granulocyte Absolute 0.03 K/mm3 (0.00-0.031); Immature Granulocyte Percent A 0.3 % (0-0.5); Lymphocytes Absolute Auto 1.69 K/mm3 (0.9-3.2); Lymphocytes Percent Auto 18.3 % (18.3-44.2); Mean Corpuscular HGB Conc 32.8 g/dl (32-36); Mean Corpuscular Hemoglobin 28.7 pg (26-34); Mean Corpuscular Volume 87.5 fl (80-100); Mean Platelet Volume 10.7 fl (7.4-10.4); Monocytes Absolute Auto 1.2 K/mm3 (0.1-0.6); Monocytes Percent Auto 13.4 % (2.6-8.5); Neutrophils Absolute Auto 5.9 K/mm3 (1.3-6.7); Platelet Count Result 234 k/mm3 (150-375); Red Blood Count 4.15 M/mm3 (4.6-6.20); Red Cell Distribution Width 13.4 % (11.5-14.5); White Blood Count 9.2 K/mm3 (4.5-10.0)
[2022-01-10 00:49] LABS: Alanine Aminotransferase 20 U/L (6-50); Albumin Level 4.4 g/dL (3.5-5.1); Alkaline Phosphatase 91 U/L (38-126); Anion Gap 11 mmol/L (8-16); Aspartate Amino Transferase 26 U/L (17-59); Bilirubin,Total 0.5 mg/dL (0.2-1.3); Blood Urea Nitrogen 27 mg/dL (9-20); Calcium 9.1 mg/dL (8.4-10.2); Carbon Dioxide 27 mmol/L (22-30); Chloride 104 mmol/L (98-107); Estimated CRCL calculation 82 ml/min; Estimated Glomerular Filt Rate > 60; Glucose 216 mg/dL (65-110); Potassium 4.3 mmol/L (3.4-5.0); Sodium 142 mmol/L (137-145)
[2022-01-10 00:50] LABS: Lactic Acid Reflex 1.7 mmol/L (0.7-2.0)
[2022-01-10] MEDS: cefTRIAXone 2 GM in SODIUM CHLORIDE 0.9% IV 100 ML 200 ML IVPB (01:07)
[2022-01-10 01:08] VITALS: BP 160/90; PULSE 88; RESP 18; O2SAT 100
[2022-01-10] MEDS: HYDROGEN PEROXIDE 3% SOLN(*SP) 473 ML BOTTLE 100 ML IRRIGATION (01:27)
[2022-01-10 01:52] VITALS: BP 177/89; PULSE 94; RESP 18; O2SAT 100
== END 2022-01-10 01:54 | disposition home or self-care (01) ==
PROVIDERS: Emergency Provider Nurse Practitioner Family; PCP Physician Assistant
DX: E11.622 Type 2 diabetes mellitus with other skin ulcer (principal); L97.319 Non-pressure chronic ulcer of right ankle with unspecified severity; Z20.822 Contact with and (suspected) exposure to COVID-19; E78.5 Hyperlipidemia, unspecified; I10 Essential (primary) hypertension; Z79.82 Long term (current) use of aspirin; Z79.4 Long term (current) use of insulin; Z79.84 Long term (current) use of oral hypoglycemic drugs
CPT/HCPCS: 36415; 73610; 80053; 83605; 85025; 87040; 87070; 87077; 87147; 87186; 87205; 96365; 99284; A9270; C9803; J0696; J7030; U0003; U0005

== ENCOUNTER 2022-07-15 19:19 | Inpatient (IN) | payer OTHER, SELFPAY ==
--- NOTE | ~2022-07-15 | XR_ITS ---
XR foot LT min 3V 07/15/2022 22:33 Indication: Osteomyelitis Procedure: 4 views left foot Comparison: 04/25/2020 Findings: Status post amputation of the third digit at the MTP joint. There is polyarticular osteoart hritis. Lisfranc joint intact. No acute fracture or traumatic malalignment. There are degenerative ca lcaneal enthesophytes. No erosive changes are seen. No abnormal periosteal reaction. Impression: 1: No evidence for osteomyelitis. If there is continued clinical concern for osteomyelitis, recommend MRI. Reviewed, dictated and finalized at location A. D [employer]OUTE [employer] OPERATOR Impression: 1: No evidence for osteomyelitis. If there is continued clinical concern for os teomyelitis, recommend MRI.
--- NOTE | ~2022-07-15 | MR_ITS ---
EXAMINATION: MR foot LT wo/w con DATE: 07/16/2022 14:20 INDICATION: Osteomyelitis TECHNIQUE: Magnetic resonance imaging (MRI) of the left fore/mid foot was performed without intraveno us contrast. Sequences included axial, sagittal and coronal T1-weighted FSE, sagittal fluid sensitive FSE STIR, axial and coronal T2-weighted FS FSE, axial T1-weighted FS FSE and postcontrast axial, sag ittal and coronal T1-weighted FS FSE. COMPARISON: Left foot radiographs dated 07/15/2022 FINDINGS: Status post third toe amputation at the level of the metatarsophalangeal joint. There is prominent so ft tissue swelling and phlegmonous change in the subcutaneous tissues surrounding a shallow ulceratio n located plantar to the head of the first metatarsal. There is a low signal intensity sinus tract ex tending deep from the ulceration to the space between the bipartite tibial sesamoid. There is mild ed lino and enhancement at the distal margin of the bipartite sesamoid without geographic loss of T1 fat signal to more specifically suggest osteomyelitis in this remains equivocal for reactive change versu s very early ostomy myelitis. There is peripheral enhancing synovitis surrounding a small joint effus ion dorsal to the first metatarsophalangeal joint space which raises concern for septic arthritis. No abnormal marrow signal changes at the first metatarsal are base of the first proximal phalanx to elmore se concern for additional osteomyelitis. Otherwise normal bone marrow signal throughout. No fracture or other pathologic marrow replacing proc ess. Mild polyarticular osteoarthritis at multiple tarsal metatarsal, metatarsophalangeal and interph alangeal joints. There is diffuse subcutaneous edema about the forefoot. No abscess. There is increas ed fluid signal and prominent muscular atrophy of the intrinsic musculature of the forefoot consisten t with likely acute on chronic diabetic neuropathy. IMPRESSION: 1. Ulceration plantar to the head of the first metatarsal with sinus tract extending deep to the leve l of the bipartite tibial sesamoid. Marrow edema and enhancement without loss of T1 signal at the dis ninfa moiety of the bipartite sesamoid which remains equivocal for early osteomyelitis versus reactive change. 2. Peripherally enhancing small joint effusion at the first metatarsophalangeal joint also suspicious for septic arthritis. Could consider joint aspiration for Gram stain and cultures. Reviewed, dictated and finalized at location B. TENDER IMPRESSION: 1. Ulceration plantar to the head of the first metatarsal with sinus tract exte nding deep to the level of the bipartite tibial sesamoid. Marrow edema and enha ncement without loss of T1 signal at the distal moiety of the bipartite sesamoi d which remains equivocal for early osteomyelitis versus reactive change. 2. Peripherally enhancing small joint effusion at the first metatarsophalangeal joint also suspicious for septic arthritis. Could consider joint aspiration fo r Gram stain and cultures.
[2022-07-15 19:28] VITALS: BP 151/84; PULSE 108; RESP 19; TEMP 36.9; O2SAT 98
[2022-07-15 21:24] VITALS: BP 150/78; PULSE 103; RESP 21; TEMP 37; O2SAT 100
[2022-07-15 22:55] LABS: Basophils Percent Auto 0.3 % (0.2-1.2); Eosinophils Absolute Auto 0.2 K/mm3 (0-0.3); Eosinophils Percent Auto 1.2 % (0-4.4); Hematocrit 36.1 % (42.0-52.0); Hemoglobin 12.1 g/dL (14.0-18.0); Immature Granulocyte Absolute 0.06 K/mm3 (0.00-0.031); Immature Granulocyte Percent A 0.5 % (0-0.5); Lymphocytes Absolute Auto 1.77 K/mm3 (0.9-3.2); Lymphocytes Percent Auto 13.4 % (18.3-44.2); Mean Corpuscular HGB Conc 33.5 g/dl (32-36); Mean Corpuscular Hemoglobin 28.5 pg (26-34); Mean Corpuscular Volume 84.9 fl (80-100); Mean Platelet Volume 10.5 fl (7.4-10.4); Monocytes Absolute Auto 1.7 K/mm3 (0.1-0.6); Monocytes Percent Auto 12.8 % (2.6-8.5); Neutrophils Absolute Auto 9.5 K/mm3 (1.3-6.7); Neutrophils Percent Auto 71.8 % (45.5-73.1); Platelet Count Result 287 k/mm3 (150-375); Red Blood Count 4.25 M/mm3 (4.6-6.20); Red Cell Distribution Width 13.7 % (11.5-14.5); White Blood Count 13.2 K/mm3 (4.5-10.0)
[2022-07-15 23:09] LABS: Lactic Acid Reflex 1.2 mmol/L (0.7-2.0)
[2022-07-15 23:11] LABS: Alanine Aminotransferase 24 U/L (6-50); Alkaline Phosphatase 83 U/L (38-126); Anion Gap 11 mmol/L (8-16); Aspartate Amino Transferase 23 U/L (17-59); Bilirubin,Total 0.7 mg/dL (0.2-1.3); Blood Urea Nitrogen 35 mg/dL (9-20); CRP 7.4 mg/dL (<1.0); Calcium 8.9 mg/dL (8.4-10.2); Carbon Dioxide 25 mmol/L (22-30); Chloride 102 mmol/L (98-107); Estimated CRCL calculation 67 ml/min; Estimated Glomerular Filt Rate 48; Glucose 210 mg/dL (65-110); Potassium 3.7 mmol/L (3.4-5.0); Sodium 138 mmol/L (137-145)
[2022-07-15 23:30] LABS: SARS-CoV-2 RNA PCR Negative
[2022-07-15 23:32] VITALS: BP 168/85; PULSE 97; RESP 16; O2SAT 100
--- NOTE | 2022-07-15 23:35 | ED.GENADULT ---
HPI - General Adult General Chief complaint: Wound/Laceration Stated complaint: diabetic sore left great toe Time Seen by Provider: 07/15/22 22:15 Source: patient Mode of arrival: ambulatory Limitations: no limitations History of Present Illness HPI narrative: 61-year-old with a history of diabetes, diabetic neuropathy here with complaints of ulcers on his left foot which is progressively getting worse he states for the last few days foot is getting red and warm. He denies any fever or chills. He has not consulted wound care for this problem. Onset (ago): month(s) (1) Location: lower extremity (Left foot) Severity: moderate Quality: burning Pain Consistency: constant Relieving factors: none Exacerbating factors: none Associated symptoms: denies other symptoms Related Data Allergies Allergy/AdvReac Type Severity Reaction Status Date / Time Penicillins Allergy Mild Hives Verified 07/15/22 22:36 Review of Systems Review of Systems: All systems reviewed & are unremarkable except as noted in HPI and below Constitutional: Constitutional: Reports no additional constitutional complaints Eyes: Eyes: Reports no additional eye complaints ENT: Reports system reviewed and no additional complaints, except as documented Cardiovascular: Cardiovascular: Reports no additional cardiovascular complaints Respiratory: Respiratory: Reports no additional respiratory complaints Gastrointestinal: Gastrointestinal: Reports no additional gastrointestinal complaints Musculoskeletal: Musculoskeletal: Reports as per HPI Integumentary/Breasts: Skin/Breast: Reports as per HPI Neurologic: Reports system reviewed and no additional complaints, except as documented Psychiatric: Psychiatric: Reports no additional psychiatric complaints [facility] Past Medical History Medical History Diabetes mellitus, new onset Diabetic foot ulcer Hyperlipidemia Hypertension Surgical History Surgical History Hx laparoscopic cholecystectomy S/P debridement left foot Family History Family History Sibling Family history of gallbladder disease Father Family history of chronic obstructive pulmonary disease Diabetes mellitus Mother Family history of heart disease in male family member before age 55 Diabetes mellitus Hypertension Heart disease Social History Social History Social History: the patient has 1 son. Who is a durable power employee benefits attorney for healthcare. The patient desires to be a full code. 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 He does have girlfriend that helps him out. Patient stated he never smoked. He does not use any illicit drugs or marijuana. Patient stated he has not drink in years. Smoking status: Never smoker Alcohol intake: never Substance use: never Substance use type: does not use Living arrangements: with family Additional living arrangements comments: Lives in [place]. Never . Occupation/Education: unemployed Gender identity (if verbalized by the patient): Male Sexual Orientation (if Verbalized by the Patient): Straight or Heterosexual Spiritual care concerns: No Exam Narrative: GENERAL: Well-appearing, obese, and in no acute distress. HEAD: Normocephalic, atraumatic. EYES: PERRLA and EOMI. NECK: Supple. CHEST: Clear to auscultation. No respiratory distress. HEART: Regular rate and rhythm. No murmur heard. Normal peripheral pulses. ABDOMEN: Soft, nontender, nondistended, normal active bowel sounds. EXTREMITIES: Normal range of motion. No edema. Examination of the left foot the dorsum of the foot is all erythematous scaly on the plantar aspect he has a pressure ulcer with no significant drainage. Palpable dorsalis pedis SKIN: Warm, dry,
--- NOTE | 2022-07-16 00:05 | PM.IMHP ---
H&P: HPI History of Present Illness Date/Time: 07/16/22 00:05 Chief Complaint: Right foot ulcer Narrative: 61 years old gentleman with history of type 2 diabetes on insulin, diabetic neuropathy, hypertension, hyperlipidemia, presents to ED with a chief complaint of right foot ulcer. Patient noticed right foot ulcer under the 1st toe about 10 days ago. Patient did not see medical doctor or take any antibiotics. And today patient notice purulent discharge from the right foot, therefore patient comes to ER for evaluation. Patient denies fever, chills. Patient also denies headache, chest pain, shortness breast, abdominal pain, nausea vomiting diarrhea dysuria. In the ER, patient is found to have open ulcer of right foot. Patient received vancomycin cefepime, Flagyl in the ED. we admit patient for further evaluation and management Review of Systems Review of Systems: All systems reviewed & are unremarkable except as noted in HPI and below PMFSH Past Medical History Medical History Diabetes mellitus, new onset Diabetic foot ulcer Hyperlipidemia Hypertension Surgical History Surgical History Hx laparoscopic cholecystectomy S/P debridement left foot Family History Family History Sibling Family history of gallbladder disease Father Family history of chronic obstructive pulmonary disease Diabetes mellitus Mother Family history of heart disease in male family member before age 55 Diabetes mellitus Hypertension Heart disease Social History Social History Social History: the patient has 1 son. Who is a durable power securities attorney for healthcare. The patient desires to be a full code. 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 He does have girlfriend that helps him out. Patient stated he never smoked. He does not use any illicit drugs or marijuana. Patient stated he has not drink in years. Smoking status: Never smoker Alcohol intake: never Substance use: never Substance use type: does not use Lack of Transportation: No Lack of Food: Never True Current Housing: Decline to Answer Concerned About Future Housing: No Difficulty Paying Gas/Electric Bills: No Difficulty Paying for Meds: No Currently Unemployed: No Education: Decline to Answer Difficulty w/ Childcare or Family Care: No Living arrangements: with family Additional living arrangements comments: Lives in [place]. Never . Occupation/Education: unemployed Gender identity (if verbalized by the patient): Male Sexual Orientation (if Verbalized by the Patient): Straight or Heterosexual Spiritual care concerns: No Meds Home Medications and Allergies Home Medications Medication Instructions Recorded Confirmed Type albuterol sulfate 90 mcg/actuation 2 puff inhalation QIDRT PRN 03/21/20 04/25/20 Rx aerosol inhaler (Proventil HFA) Shortness Of Breath #6.7 grams aspirin 81 mg tablet,delayed 81 mg PO DAILY #30 tabs 03/21/20 04/25/20 Rx release (Adult Aspirin Regimen) atorvastatin 40 mg tablet 40 mg PO HS #30 tabs 03/21/20 04/25/20 Rx insulin glargine 100 unit/mL (3 25 unit (0.25 mL) subcut HS 30 03/21/20 04/25/20 Rx mL) subcutaneous pen (Lanus days #7.5 mL Solostar U-100 Insulin) losartan 100 mg tablet 100 mg PO DAILY #30 tabs 03/21/20 04/25/20 Rx metformin 500 mg tablet 500 mg PO BIDWM #60 tabs 03/21/20 04/25/20 Rx (Glucophage) silver 200 mcg/gram topical gel 1 applic topical DAILY #45 grams 03/21/20 04/25/20 Rx (Silver-Sept) Saccharomyces boulardii 250 mg 250 mg PO BID #24 caps 04/29/20 Rx capsule (Florastor) levofloxacin 750 mg tablet 750 mg PO DAILY #12 tabs 04/29/20 Rx metronidazole 500 mg tablet 500 mg PO Q8H #36 tabs 04/29/20 Rx cephal
[2022-07-16] MEDS: metroNIDAZOLE 500 MG/ISO 100ML 500 MG/100 ML BAG 100 MG IVPB ×4 (00:51→23:39)
--- NOTE | 2022-07-16 01:00 | PC.NURSE ---
received report from Ed RN Hazel.
[2022-07-16 01:15] VITALS: BP 167/100; PULSE 101; RESP 20; TEMP 36.3; O2SAT 99; BMI 39.9
[2022-07-16] MEDS: SODIUM CHLORIDE 0.9% IV 1,000 ML 75 ML IV CONT (02:37)
[2022-07-16 02:49] VITALS: PULSE 101; RESP 20; O2SAT 99
--- NOTE | 2022-07-16 03:24 | PC.NURSE ---
called [phone] to notify dm educator message left on voicemail box
--- NOTE | 2022-07-16 05:28 | PC.NURSE ---
ua collected and sent to lab for analysis
[2022-07-16 05:31] LABS: Appearance Urine Clear (Clear); Bilirubin Urine Negative (Negative); Blood Urine Negative (Negative); Color Urine Yellow (Yellow); Glucose Urine UA 1+ mg/dL (Negative); Ketones Urine Negative (Negative); Leukocyte Esterase Ur Negative LEU/UL (Negative); Nitrate Urine Negative (Negative); Protein Urine 2+ mg/dL (Negative); Specific Grav Ur 1.025 (1.001-1.035); Urobilinogen Urine 0.2 mg/dL (<2.0); pH Urine 5.5 (5.0-9.0)
[2022-07-16] MEDS: SODIUM CHLORIDE 0.9% IV 1,000 ML 100 ML IV CONT (05:32)
[2022-07-16 05:33] LABS: Mucus Urine Rare /lpf; RBC Urine 0-2 /hpf (0-2); WBC Urine 0-3 /hpf
[2022-07-16 05:39] LABS: Add Urine Microscopic? YES
[2022-07-16 06:00] VITALS: BP 176/94; PULSE 102; RESP 18; TEMP 36.1; O2SAT 97
[2022-07-16 08:01] LABS: Glucose Point of Care 224 mg/dl (65-105)
[2022-07-16] MEDS: INSULIN ASPART (*BKC) 100 UNITS/ML SUB-Q ×2 (08:06→16:50)
[2022-07-16] MEDS: ASPIRIN 81 MG ENTERIC TABLET PO (08:07)
[2022-07-16] MEDS: ENOXAPARIN 40 MG/0.4 ML SYRINGE SUB-Q (08:07)
[2022-07-16 09:49] LABS: Basophils Percent Auto 0.3 % (0.2-1.2); Eosinophils Absolute Auto 0.2 K/mm3 (0-0.3); Eosinophils Percent Auto 1.5 % (0-4.4); Hematocrit 32.8 % (42.0-52.0); Hemoglobin 11.1 g/dL (14.0-18.0); Immature Granulocyte Absolute 0.04 K/mm3 (0.00-0.031); Immature Granulocyte Percent A 0.3 % (0-0.5); Lymphocytes Absolute Auto 0.92 K/mm3 (0.9-3.2); Lymphocytes Percent Auto 7.5 % (18.3-44.2); Mean Corpuscular HGB Conc 33.8 g/dl (32-36); Mean Corpuscular Hemoglobin 28.8 pg (26-34); Mean Corpuscular Volume 85.2 fl (80-100); Mean Platelet Volume 9.8 fl (7.4-10.4); Monocytes Absolute Auto 1.4 K/mm3 (0.1-0.6); Monocytes Percent Auto 11.7 % (2.6-8.5); Neutrophils Absolute Auto 9.7 K/mm3 (1.3-6.7); Neutrophils Percent Auto 78.7 % (45.5-73.1); Platelet Count Result 236 k/mm3 (150-375); Red Blood Count 3.85 M/mm3 (4.6-6.20); Red Cell Distribution Width 13.5 % (11.5-14.5); White Blood Count 12.3 K/mm3 (4.5-10.0)
[2022-07-16 09:58] LABS: Alanine Aminotransferase 23 U/L (6-50); Alkaline Phosphatase 72 U/L (38-126); Anion Gap 5 mmol/L (8-16); Aspartate Amino Transferase 22 U/L (17-59); Bilirubin,Total 0.8 mg/dL (0.2-1.3); Blood Urea Nitrogen 26 mg/dL (9-20); Calcium 8.6 mg/dL (8.4-10.2); Carbon Dioxide 26 mmol/L (22-30); Chloride 102 mmol/L (98-107); Estimated CRCL calculation 91 ml/min; Estimated Glomerular Filt Rate > 60; Glucose 225 mg/dL (65-110); Potassium 3.8 mmol/L (3.4-5.0); Sodium 133 mmol/L (137-145)
--- NOTE | 2022-07-16 10:45 | PM.IMPN ---
Progress Note: A&P Assessment and Plan (1) Diabetic foot ulcer: Code(s): E11.621 - Type 2 diabetes mellitus with foot ulcer; L97.509 - Non-pressure chronic ulcer of other part of unspecified foot with unspecified severity Status: Acute Assessment and Plan: Foot xray shows no evidence for osteomyelitis, if concerned consider MRI MRI ordered and pending General surgery consulted Continue vancomycin cefepime Flagyl IV day 1 started on 07/15/22 Consult wound care Wound culture moderate WBC, moderate mixed bacterial iglesia (2) Uncontrolled type 2 diabetes circulatory disorder erectile dysfunction: Status: Acute Assessment and Plan: Glucose today 225 A1c ordered Continue Lantus 26 units q.h.s. Start aspart sliding scale a.c. q.h.s., increase the protocol Hold metformin during hospitalization Adjust medication for better glucose control Hypoglycemia protocol (3) Uncontrolled hypertension: Code(s): I10 - Essential (primary) hypertension Status: Acute Assessment and Plan: BP 176/94 Start patient on amlodipine Continue to trend BP adjust therapy as indicated (4) VEDA (acute kidney injury): Code(s): N17.9 - Acute kidney failure, unspecified Status: Acute Assessment and Plan: Current 15/07.10 Elevated BUN and creatinine above baseline urinalysis does not appear to be infectious Start normal saline IV, DC at this time Trend labs Most likely resolved (5) Hyperlipidemia: Code(s): E78.5 - Hyperlipidemia, unspecified Status: Chronic Assessment and Plan: Continue Lipitor Time Spent With Patient Time: 63 minutes Time with patient: Greater than 35 minutes Subjective Date/time seen: 07/16/22 1045 Interval history: 07/17/22 1045 Patient is doing ok, and has not have any complaints. He does have a pretty significant wound on the left foot. Wound care did see the wound and stated that they think that an MRI should be ordered, and a surgeon to see it. Currently, he denies any pain. the wound did have some purulent drainage. He denies any chest pain, shortness of breath, nausea, vomiting, diarrhea, or constipation. 07/16/22? 00:05 61 years old gentleman with history of type 2 diabetes on insulin, diabetic neuropathy, hypertension, hyperlipidemia, presents to ED with a chief complaint of right foot ulcer.? Patient noticed right foot ulcer under the 1st toe about 10 days ago.? Patient did not see medical doctor or take any antibiotics.? And today patient notice purulent discharge from the right foot, therefore patient comes to ER for evaluation.? Patient denies fever, chills.? Patient also denies headache, chest pain, shortness breast, abdominal pain, nausea vomiting diarrhea dysuria.? In the ER, patient is found to have open ulcer of right foot.? Patient received vancomycin cefepime, Flagyl in the ED. we admit patient for further evaluation and management Review of Systems Review of Systems: All systems reviewed & are unremarkable except as noted in HPI and below Exam Narrative: General: well-nourished, well-appearing 61-year-old male, laying in bed, comfortable, NARD Neuro: awake, alert and oriented x4, speech clear, no focal neuro deficits noted HEENMT: normocephalic, atraumatic, EOMI, sclerae anicteric, moist oral mucosa Respiratory: Clear to auscultation bilaterally without crackles, rhonchi or wheezes, nonlabored breathing Cardio: regular rate, regular rhythm with S1-S2 Abdomen: nondistended, normoactive bowel sounds, soft, nontender to palpation Extremities: 3-4+ pitting edema, erythema, or tenderness to palpation, DP pulses 2+ bilaterally. Left foot has a Ulcer with tunnelling on the ball of the foot, with swelling, heat and drainage. Skin: no rashes or lesions, warm and dry Psych: appropriate mood and affect, judgment and insight intact
--- NOTE | 2022-07-16 10:45 | P.PNIM_ITS ---
Progress Note: A&P Assessment and Plan (1) Diabetic foot ulcer: Code(s): E11.621 - Type 2 diabetes mellitus with foot ulcer; L97.509 - Non-pressure chronic ulcer of other part of unspecified foot with unspecified severity Status: Acute Assessment and Plan: * Foot xray shows no evidence for osteomyelitis, if concerned consider MRI * MRI ordered and pending * General surgery consulted * Continue vancomycin cefepime Flagyl IV day 1 started on 07/15/22 * Consult wound care * Wound culture moderate WBC, moderate mixed bacterial iglesia (2) Uncontrolled type 2 diabetes circulatory disorder erectile dysfunction: Status: Acute Assessment and Plan: * Glucose today 225 * A1c ordered * Continue Lantus 26 units q.h.s. * Start aspart sliding scale a.c. q.h.s., increase the protocol * Hold metformin during hospitalization * Adjust medication for better glucose control * Hypoglycemia protocol (3) Uncontrolled hypertension: Code(s): I10 - Essential (primary) hypertension Status: Acute Assessment and Plan: * BP 176/94 * Start patient on amlodipine * Continue to trend BP * adjust therapy as indicated (4) VEDA (acute kidney injury): Code(s): N17.9 - Acute kidney failure, unspecified Status: Acute Assessment and Plan: * Current * Elevated BUN and creatinine above baseline * urinalysis does not appear to be infectious * Start normal saline IV, DC at this time * Trend labs * Most likely resolved (5) Hyperlipidemia: Code(s): E78.5 - Hyperlipidemia, unspecified Status: Chronic Assessment and Plan: * Continue Lipitor Time Spent With Patient Time: 63 minutes Time with patient: Greater than 35 minutes Subjective Date/time seen: 07/16/22 1045 Interval history: 07/17/22 1045 Patient is doing ok, and has not have any complaints. He does have a pretty significant wound on the left foot. Wound care did see the wound and stated that they think that an MRI should be ordered, and a surgeon to see it. Currently, he denies any pain. the wound did have some purulent drainage. He denies any chest pain, shortness of breath, nausea, vomiting, diarrhea, or constipation. 07/16/22? 00:05 61 years old gentleman with history of type 2 diabetes on insulin, diabetic neuropathy, hypertension, hyperlipidemia, presents to ED with a chief complaint of right foot ulcer.? Patient noticed right foot ulcer under the 1st toe about 10 days ago.? Patient did not see medical doctor or take any antibiotics.? And today patient notice purulent discharge from the right foot, therefore patient comes to ER for evaluation.? Patient denies fever, chills.? Patient also denies headache, chest pain, shortness breast, abdominal pain, nausea vomiting diarrhea dysuria.? In the ER, patient is found to have open ulcer of right foot.? Patient received vancomycin cefepime, Flagyl in the ED. we admit patient for further evaluation and management Review of Systems Review of Systems: All systems reviewed & are unremarkable except as noted in HPI and below Exam Narrative: General: well-nourished, well-appearing 61-year-old male, laying in bed, comfortable, NARD Neuro: awake, alert and oriented x4, speech clear, no focal neuro deficits noted HEENMT: normocephalic, atraumatic, EOMI, sclerae anicteri
[2022-07-16 11:48] LABS: Glucose Point of Care 195 mg/dl (65-105)
--- NOTE | 2022-07-16 13:35 | PCCDE ---
Consult received 07/16 for diabetes education. Pt was at MRI at time of visit. Left Diabetes Management book at bedside with business card.
[2022-07-16 14:00] VITALS: BP 192/106; PULSE 109; RESP 16; TEMP 36.6; O2SAT 98
[2022-07-16] MEDS: BENZOCAINE/MENTHOL (*BKC) 18 EA LOZENGE 1 LOZENGE PO (15:33)
[2022-07-16] MEDS: hydrALAZINE HCL 20 MG/ML VIAL 10 MG IV PUSH (15:33)
[2022-07-16] MEDS: amLODIPine BESYLATE 5 MG TABLET 10 MG PO (15:33)
[2022-07-16 16:26] LABS: Glucose Point of Care 230 mg/dl (65-105)
[2022-07-16] MEDS: NIFEdipine 30 MG TAB.ER.24 PO (16:50)
[2022-07-16 17:55] VITALS: BP 170/96
[2022-07-16] MEDS: INSULIN GLARGINE (*BKC) 100 UNITS/ML 26 UNITS SUB-Q (20:14)
[2022-07-16] MEDS: ATORVASTATIN 40 MG TABLET PO (20:14)
[2022-07-16 20:56] LABS: Glucose Point of Care 199 mg/dl (65-105)
[2022-07-16 22:00] VITALS: BP 158/78; PULSE 113; RESP 20; TEMP 36.7; O2SAT 99
[2022-07-17] MEDS: SODIUM CHLORIDE 0.9% IV 100 ML 10 ML (01:00)
[2022-07-17 06:00] VITALS: BP 149/70; PULSE 100; RESP 18; TEMP 36.9; O2SAT 100
[2022-07-17 06:50] LABS: Basophils Absolute Auto 0.1 K/mm3 (0.0-0.1); Basophils Percent Auto 0.5 % (0.2-1.2); Eosinophils Absolute Auto 0.3 K/mm3 (0-0.3); Eosinophils Percent Auto 2.3 % (0-4.4); Hematocrit 32.9 % (42.0-52.0); Hemoglobin 11.1 g/dL (14.0-18.0); Immature Granulocyte Absolute 0.05 K/mm3 (0.00-0.031); Immature Granulocyte Percent A 0.5 % (0-0.5); Lymphocytes Absolute Auto 1.28 K/mm3 (0.9-3.2); Mean Corpuscular HGB Conc 33.7 g/dl (32-36); Mean Corpuscular Hemoglobin 28.3 pg (26-34); Mean Corpuscular Volume 83.9 fl (80-100); Mean Platelet Volume 10.3 fl (7.4-10.4); Monocytes Absolute Auto 1.4 K/mm3 (0.1-0.6); Monocytes Percent Auto 12.9 % (2.6-8.5); Neutrophils Absolute Auto 7.7 K/mm3 (1.3-6.7); Neutrophils Percent Auto 71.8 % (45.5-73.1); Platelet Count Result 253 k/mm3 (150-375); Red Blood Count 3.92 M/mm3 (4.6-6.20); Red Cell Distribution Width 13.3 % (11.5-14.5); White Blood Count 10.7 K/mm3 (4.5-10.0)
[2022-07-17 06:55] LABS: Anion Gap 8 mmol/L (8-16); Blood Urea Nitrogen 18 mg/dL (9-20); Calcium 8.5 mg/dL (8.4-10.2); Carbon Dioxide 24 mmol/L (22-30); Chloride 105 mmol/L (98-107); Estimated CRCL calculation 99 ml/min; Estimated Glomerular Filt Rate > 60; Glucose 187 mg/dL (65-110); Potassium 3.5 mmol/L (3.4-5.0); Sodium 137 mmol/L (137-145)
[2022-07-17 08:07] LABS: Glucose Point of Care 179 mg/dl (65-105)
[2022-07-17] MEDS: metroNIDAZOLE 500 MG/ISO 100ML 500 MG/100 ML BAG 100 MG IVPB ×2 (08:24→16:04)
[2022-07-17] MEDS: SILVERGEL (ELTA) 45 ML 1 APPLIC TOPICAL (08:25)
[2022-07-17] MEDS: ENOXAPARIN 40 MG/0.4 ML SYRINGE SUB-Q (08:25)
[2022-07-17] MEDS: amLODIPine BESYLATE 5 MG TABLET 10 MG PO (08:25)
[2022-07-17] MEDS: ASPIRIN 81 MG ENTERIC TABLET PO (08:25)
[2022-07-17] MEDS: NIFEdipine 30 MG TAB.ER.24 PO (08:25)
--- NOTE | 2022-07-17 10:30 | P.PNIM_ITS ---
Progress Note: A&P Assessment and Plan (1) Diabetic foot ulcer: Code(s): E11.621 - Type 2 diabetes mellitus with foot ulcer; L97.509 - Non-pressure chronic ulcer of other part of unspecified foot with unspecified severity Status: Acute Assessment and Plan: * Foot xray shows no evidence for osteomyelitis, if concerned consider MRI * MRI shows ulceraton plantar to the head of the first metatarsal with sinus tr act extending deep to the level of the bipartite tibial sesamoid. Narrow edema and enhancement without loss of T1 signal at the distal moiety of the bipartite sesamoid which remains equivocal for early osteomyelitis vs reactive change, small joint effusion at the firt metatarsophalangeal joint also suspicious for septic arthritis * General surgery consulted * Continue vancomycin cefepime Flagyl IV day 2 started on 07/15/22 * Consult wound care * Wound culture moderate WBC, moderate mixed bacterial iglesia * WBC stable at 10.7 today (2) Uncontrolled type 2 diabetes circulatory disorder erectile dysfunction: Status: Acute Assessment and Plan: * Glucose today 187 * A1c 7.4 * Continue Lantus 26 units q.h.s. * Start aspart sliding scale a.c. q.h.s., increase the protocol * Hold metformin during hospitalization * Adjust medication for better glucose control * Hypoglycemia protocol (3) Uncontrolled hypertension: Code(s): I10 - Essential (primary) hypertension Status: Acute Assessment and Plan: * BP 149/70 * DC amlodipine, continue nifedipine for now * Continue to trend BP * adjust therapy as indicated (4) VEDA (acute kidney injury): Code(s): N17.9 - Acute kidney failure, unspecified Status: Acute Assessment and Plan: * Current 07/07. * Elevated BUN and creatinine above baseline * urinalysis does not appear to be infectious * Start normal saline IV, DC at this time * Trend labs * Most likely resolved (5) Hyperlipidemia: Code(s): E78.5 - Hyperlipidemia, unspecified Status: Chronic Assessment and Plan: * Continue Lipitor Time Spent With Patient Time: 36 minutes Time with patient: Greater than 35 minutes Subjective Date/time seen: 07/17/22 1030 Interval history: 07/18/22 1030 Patient was sitting in chair when I went into the room. Patient stated that he feels fine he does has upon foot. He denies any chest pain, shortness a breath, nausea, vomiting, diarrhea or constipation. Patient did state that he does have a jolt of pain in his foot every once in a while. Last night patient was had running blood pressures 190/110s. Patient was started on nifedipine. Blood pressure is more controlled today at 149/70. 07/17/22 1045 Patient is doing ok, and has not have any complaints. He does have a pretty significant wound on the left foot. Wound care did see the wound and stated that they think that an MRI should be ordered, and a surgeon to see it. Currently, he denies any pain. the wound did have some purulent drainage. He denies any chest pain, shortness of breath, nausea, vomiting, diarrhea, or constipation. 07/16/22? 00:05 61 years old gentleman with history of type 2 diabetes on insulin, diabetic neuropathy, hypertension, hyperlipidemia, presents to ED with a chief complaint of right foot ulcer.? Patient noticed right foot ulcer under the 1st toe about 10 days ago.? Patient
--- NOTE | 2022-07-17 10:30 | PM.IMPN ---
Progress Note: A&P Assessment and Plan (1) Diabetic foot ulcer: Code(s): E11.621 - Type 2 diabetes mellitus with foot ulcer; L97.509 - Non-pressure chronic ulcer of other part of unspecified foot with unspecified severity Status: Acute Assessment and Plan: Foot xray shows no evidence for osteomyelitis, if concerned consider MRI MRI shows ulceraton plantar to the head of the first metatarsal with sinus tract extending deep to the level of the bipartite tibial sesamoid. Narrow edema and enhancement without loss of T1 signal at the distal moiety of the bipartite sesamoid which remains equivocal for early osteomyelitis vs reactive change, small joint effusion at the firt metatarsophalangeal joint also suspicious for septic arthritis General surgery consulted Continue vancomycin cefepime Flagyl IV day 2 started on 07/15/22 Consult wound care Wound culture moderate WBC, moderate mixed bacterial iglesia WBC stable at 10.7 today (2) Uncontrolled type 2 diabetes circulatory disorder erectile dysfunction: Status: Acute Assessment and Plan: Glucose today 187 A1c 7.4 Continue Lantus 26 units q.h.s. Start aspart sliding scale a.c. q.h.s., increase the protocol Hold metformin during hospitalization Adjust medication for better glucose control Hypoglycemia protocol (3) Uncontrolled hypertension: Code(s): I10 - Essential (primary) hypertension Status: Acute Assessment and Plan: BP 149/70 DC amlodipine, continue nifedipine for now Continue to trend BP adjust therapy as indicated (4) VEDA (acute kidney injury): Code(s): N17.9 - Acute kidney failure, unspecified Status: Acute Assessment and Plan: Current 18/.00 Elevated BUN and creatinine above baseline urinalysis does not appear to be infectious Start normal saline IV, DC at this time Trend labs Most likely resolved (5) Hyperlipidemia: Code(s): E78.5 - Hyperlipidemia, unspecified Status: Chronic Assessment and Plan: Continue Lipitor Time Spent With Patient Time: 36 minutes Time with patient: Greater than 35 minutes Subjective Date/time seen: 07/17/22 1030 Interval history: 07/18/22 1030 Patient was sitting in chair when I went into the room. Patient stated that he feels fine he does has upon foot. He denies any chest pain, shortness a breath, nausea, vomiting, diarrhea or constipation. Patient did state that he does have a jolt of pain in his foot every once in a while. Last night patient was had running blood pressures 190/110s. Patient was started on nifedipine. Blood pressure is more controlled today at 149/70. 07/17/22 1045 Patient is doing ok, and has not have any complaints. He does have a pretty significant wound on the left foot. Wound care did see the wound and stated that they think that an MRI should be ordered, and a surgeon to see it. Currently, he denies any pain. the wound did have some purulent drainage. He denies any chest pain, shortness of breath, nausea, vomiting, diarrhea, or constipation. 07/16/22? 00:05 61 years old gentleman with history of type 2 diabetes on insulin, diabetic neuropathy, hypertension, hyperlipidemia, presents to ED with a chief complaint of right foot ulcer.? Patient noticed right foot ulcer under the 1st toe about 10 days ago.? Patient did not see medical doctor or take any antibiotics.? And today patient notice purulent discharge from the right foot, therefore patient comes to ER for evaluation.? Patient denies fever, chills.? Patient also denies headache, chest pain, shortness breast, abdominal pain, nausea vomiting diarrhea dysuria.? In the ER, patient is found to have open ulcer of right foot.? Patient received vancomycin cefepime, Flagyl in the ED. we admit patient for further evaluation and management Review of Systems Review of Systems: All
[2022-07-17 11:16] LABS: Hemoglobin A1C 7.4 % (<5.7)
[2022-07-17 11:40] LABS: Glucose Point of Care 244 mg/dl (65-105)
[2022-07-17] MEDS: INSULIN ASPART (*BKC) 100 UNITS/ML SUB-Q ×2 (11:49→17:37)
[2022-07-17 12:17] LABS: Vancomycin Trough 17.4 ug/mL (10.0-20.0)
--- NOTE | 2022-07-17 12:40 | PM.CNGS ---
Assessment and Plan Assessment and plan (1) Ulcer of right foot due to type 2 diabetes mellitus: Code(s): E11.621 - Type 2 diabetes mellitus with foot ulcer; L97.519 - Non-pressure chronic ulcer of other part of right foot with unspecified severity Status: Acute Assessment and Plan: continue local wound care, will ask Wound Care to see, no obvious osteomyelitis at this time, continue IV antibiotics, long discussion with patient regarding surgical debridement and wants to hold off for now given that he may end up with further amputation (2) Uncontrolled type 2 diabetes circulatory disorder erectile dysfunction: Status: Acute Assessment and Plan: discussed with patient need for better control, management per medical team History of Present Illness Consult details Consult date: 07/17/22 Reason for consult: wound care Requesting physician: Laney Harris MD Narrative: The patient is a 61-year-old male well known to my service from previous right 3rd toe amputation secondary to uncontrolled diabetes presenting now with an ulcer in the plantar surface of his 1st metatarsal. The patient reports that this ulcer has been present for approximately 2 weeks and steadily worsening. The patient denies any pain in the area given his neuropathy, but does report purulent drainage. The patient reports the wound seems to be enlarging as well. The patient denies any fevers or chills, any other systemic symptoms of infection. Review of Systems Constitutional: Constitutional: Reports as per HPI, Denies anorexia, Denies chills, Denies fatigue, Denies fever(s), Denies lethargy, Denies malaise, Denies poor appetite, Denies weakness, Denies weight gain and Denies weight loss Eyes: Eyes: Reports no additional eye complaints ENT: Reports system reviewed and no additional complaints, except as documented Cardiovascular: Cardiovascular: Reports no additional cardiovascular complaints Respiratory: Respiratory: Reports no additional respiratory complaints Gastrointestinal: Gastrointestinal: Reports no additional gastrointestinal complaints Genitourinary: Genitourinary: Reports no additional male genitourinary complaints Musculoskeletal: Musculoskeletal: Reports no additional musculoskeletal complaints Integumentary/Breasts: Skin/Breast: Reports as per HPI Neurologic: Reports system reviewed and no additional complaints, except as documented Psychiatric: Psychiatric: Reports no additional psychiatric complaints Endocrine: Endocrine: Reports no additional endocrine complaints Hematologic/Lymphatic: Hematologic/Lymphatic: Reports no additional hematologic/lymphatic complaints Allergic/Immunologic: Allergic/Immunologic: Reports no additional allergic/immunologic complaints PMFSH Past Medical History Medical History Diabetes mellitus, new onset Diabetic foot ulcer Hyperlipidemia Hypertension Surgical History Surgical History Hx laparoscopic cholecystectomy S/P debridement left foot Family History Family History Sibling Family history of gallbladder disease Father Family history of chronic obstructive pulmonary disease Diabetes mellitus Mother Family history of heart disease in male family member before age 55 Diabetes mellitus Hypertension Heart disease Social History Social History Social History: the patient has 1 son. Who is a durable power ip attorney for healthcare. The patient desires to be a full code. 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 He does have girlfriend that helps him out. Patient stated he never smoked. He does not use any illicit drugs or marijuana. Patient stated he has not drink in years. Smoking status: Never smoker Alcohol
[2022-07-17 14:00] VITALS: BP 140/81; PULSE 106; RESP 20; TEMP 36.4; O2SAT 99
[2022-07-17 16:58] LABS: Glucose Point of Care 228 mg/dl (65-105)
[2022-07-17 19:53] LABS: Glucose Point of Care 285 mg/dl (65-105)
[2022-07-17] MEDS: ATORVASTATIN 40 MG TABLET PO (20:44)
[2022-07-17] MEDS: INSULIN GLARGINE (*BKC) 100 UNITS/ML 26 UNITS SUB-Q (21:41)
[2022-07-17 22:00] VITALS: BP 163/86; PULSE 102; RESP 18; TEMP 36.4; O2SAT 99
[2022-07-18] MEDS: metroNIDAZOLE 500 MG/ISO 100ML 500 MG/100 ML BAG 125 MG IVPB (00:16)
[2022-07-18] MEDS: BENZOCAINE/MENTHOL (*BKC) 18 EA LOZENGE 1 LOZENGE PO (01:10)
[2022-07-18 06:00] VITALS: BP 151/86; PULSE 99; RESP 18; TEMP 36.9; O2SAT 99
[2022-07-18 06:19] LABS: Basophils Absolute Auto 0.1 K/mm3 (0.0-0.1); Basophils Percent Auto 0.6 % (0.2-1.2); Eosinophils Absolute Auto 0.4 K/mm3 (0-0.3); Eosinophils Percent Auto 4.2 % (0-4.4); Hematocrit 33.3 % (42.0-52.0); Hemoglobin 11.1 g/dL (14.0-18.0); Immature Granulocyte Absolute 0.05 K/mm3 (0.00-0.031); Immature Granulocyte Percent A 0.5 % (0-0.5); Lymphocytes Absolute Auto 1.23 K/mm3 (0.9-3.2); Lymphocytes Percent Auto 11.7 % (18.3-44.2); Mean Corpuscular HGB Conc 33.3 g/dl (32-36); Mean Corpuscular Volume 83.9 fl (80-100); Mean Platelet Volume 10.3 fl (7.4-10.4); Monocytes Absolute Auto 1.2 K/mm3 (0.1-0.6); Monocytes Percent Auto 11.6 % (2.6-8.5); Neutrophils Absolute Auto 7.6 K/mm3 (1.3-6.7); Neutrophils Percent Auto 71.4 % (45.5-73.1); Platelet Count Result 263 k/mm3 (150-375); Red Blood Count 3.97 M/mm3 (4.6-6.20); Red Cell Distribution Width 13.2 % (11.5-14.5); White Blood Count 10.6 K/mm3 (4.5-10.0)
[2022-07-18 06:31] LABS: Alanine Aminotransferase 24 U/L (6-50); Albumin Level 3.6 g/dL (3.5-5.1); Alkaline Phosphatase 72 U/L (38-126); Anion Gap 8 mmol/L (8-16); Aspartate Amino Transferase 28 U/L (17-59); Bilirubin,Total 0.5 mg/dL (0.2-1.3); Blood Urea Nitrogen 24 mg/dL (9-20); Calcium 8.5 mg/dL (8.4-10.2); Carbon Dioxide 25 mmol/L (22-30); Chloride 105 mmol/L (98-107); Estimated CRCL calculation 99 ml/min; Estimated Glomerular Filt Rate > 60; Glucose 164 mg/dL (65-110); Magnesium 2.1 mg/dL (1.6-2.3); Potassium 3.9 mmol/L (3.4-5.0); Sodium 138 mmol/L (137-145)
[2022-07-18 07:58] LABS: Glucose Point of Care 172 mg/dl (65-105)
[2022-07-18] MEDS: INSULIN ASPART (*BKC) 100 UNITS/ML SUB-Q ×3 (08:59→16:47)
[2022-07-18] MEDS: metroNIDAZOLE 500 MG/ISO 100ML 500 MG/100 ML BAG 100 MG IVPB ×2 (09:06→16:38)
[2022-07-18] MEDS: ENOXAPARIN 40 MG/0.4 ML SYRINGE SUB-Q (09:06)
[2022-07-18] MEDS: NIFEdipine 30 MG TAB.ER.24 PO (09:07)
[2022-07-18] MEDS: SILVERGEL (ELTA) 45 ML 1 APPLIC TOPICAL (09:07)
[2022-07-18] MEDS: hydroCHLOROthiazide 12.5 MG CAPSULE PO (09:07)
[2022-07-18] MEDS: ASPIRIN 81 MG ENTERIC TABLET PO (09:07)
[2022-07-18] MEDS: LOSARTAN POTASSIUM 50 MG TABLET PO (09:07)
[2022-07-18] MEDS: EMPAGLIFLOZIN 25 MG TABLET PO (09:07)
--- NOTE | 2022-07-18 10:30 | PM.IMPN ---
Progress Note: A&P Assessment and Plan (1) Diabetic foot ulcer: Code(s): E11.621 - Type 2 diabetes mellitus with foot ulcer; L97.509 - Non-pressure chronic ulcer of other part of unspecified foot with unspecified severity Status: Acute Assessment and Plan: Foot xray shows no evidence for osteomyelitis, if concerned consider MRI MRI shows ulceraton plantar to the head of the first metatarsal with sinus tract extending deep to the level of the bipartite tibial sesamoid. Narrow edema and enhancement without loss of T1 signal at the distal moiety of the bipartite sesamoid which remains equivocal for early osteomyelitis vs reactive change, small joint effusion at the firt metatarsophalangeal joint also suspicious for septic arthritis General surgery consulted Continue vancomycin cefepime Flagyl IV day 2 started on 07/15/22 Consult wound care Wound culture moderate WBC, moderate mixed bacterial iglesia WBC stable at 10.6 today Options of surgery vs conservative measures, opted for conservative measures with antibiotics since further amputation is possible Most likely will need IV antibiotics for retirement (2) Uncontrolled type 2 diabetes circulatory disorder erectile dysfunction: Status: Acute Assessment and Plan: Glucose today 164 A1c 7.4 24 hour roll, 44 Continue Lantus 26 units q.h.s. Add 5 units aspart with meals Add Jardiance Start aspart sliding scale a.c. q.h.s., increase the protocol Hold metformin during hospitalization Adjust medication for better glucose control Hypoglycemia protocol (3) Uncontrolled hypertension: Code(s): I10 - Essential (primary) hypertension Status: Acute Assessment and Plan: BP 163/86 DC amlodipine, continue nifedipine for now Add losartan/HCTZ Continue to trend BP adjust therapy as indicated (4) VEDA (acute kidney injury): Code(s): N17.9 - Acute kidney failure, unspecified Status: Acute Assessment and Plan: Current 24.00, GFR >60 Elevated BUN and creatinine above baseline urinalysis does not appear to be infectious Start normal saline IV, DC at this time Trend labs resolved (5) Hyperlipidemia: Code(s): E78.5 - Hyperlipidemia, unspecified Status: Chronic Assessment and Plan: Continue Lipitor Time Spent With Patient Time: ? MEDICAL DECISION MAKING NARRATIVE ? History obtained from: Patient ? History from independent sources: ? External chart review: Lab review ? New problems addressed: Uncontrolled diabetes and hypertension ? Chronic illnesses addressed: HTN/Diabetes ? Independent interpretation of studies: Lab and vital signs ? Comorbidities complicating care: Uncontrolled chronic diseases ? Diagnostic tests considered but not ordered: none ? Risk of complication: High: ? Time spent on encounter: 51 minutes Time with patient: Greater than 35 minutes Subjective Date/time seen: 07/18/22 103 Interval history: 07/18/22 103 Patient was lying in bed and had no complaints today. He did state that he was having a little bit of pain in his foot but it is nothing on terrible. Currently denies any chest pain, shortness a breath, nausea, vomiting, diarrhea or constipation. Not sure if the patient will need long-term antibiotics. 07/17/22 103 Patient was sitting in chair when I went into the room. Patient stated that he feels fine he does has upon foot. He denies any chest pain, shortness a breath, nausea, vomiting, diarrhea or constipation. Patient did state that he does have a jolt of pain in his foot every once in a while. Last night patient was had running blood pressures 190/110s. Patient was started on nifedipine. Blood pressure is more controlled today at 149/70. 07/16/22 104 Patient is doing ok, and has not have any complaints. He does have a pretty significant wound on t
--- NOTE | 2022-07-18 10:30 | P.PNIM_ITS ---
Progress Note: A&P Assessment and Plan (1) Diabetic foot ulcer: Code(s): E11.621 - Type 2 diabetes mellitus with foot ulcer; L97.509 - Non-pressure chronic ulcer of other part of unspecified foot with unspecified severity Status: Acute Assessment and Plan: * Foot xray shows no evidence for osteomyelitis, if concerned consider MRI * MRI shows ulceraton plantar to the head of the first metatarsal with sinus tr act extending deep to the level of the bipartite tibial sesamoid. Narrow edema and enhancement without loss of T1 signal at the distal moiety of the bipartite sesamoid which remains equivocal for early osteomyelitis vs reactive change, small joint effusion at the firt metatarsophalangeal joint also suspicious for septic arthritis * General surgery consulted * Continue vancomycin cefepime Flagyl IV day 2 started on 07/15/22 * Consult wound care * Wound culture moderate WBC, moderate mixed bacterial iglesia * WBC stable at 10.6 today * Options of surgery vs conservative measures, opted for conservative measures with antibiotics since further amputation is possible * 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 * Add 5 units aspart with meals * Add Jardiance * Start aspart sliding scale a.c. q.h.s., increase the protocol * Hold metformin during hospitalization * Adjust medication for better glucose control * Hypoglycemia protocol (3) Uncontrolled hypertension: Code(s): I10 - Essential (primary) hypertension Status: Acute Assessment and Plan: * BP 163/86 * DC amlodipine, continue nifedipine for now * Add losartan/HCTZ * Continue to trend BP * adjust therapy as indicated (4) VEDA (acute kidney injury): Code(s): N17.9 - Acute kidney failure, unspecified Status: Acute Assessment and Plan: * Current 24/.00, GFR >60 * Elevated BUN and creatinine above baseline * urinalysis does not appear to be infectious * Start normal saline IV, DC at this time * Trend labs * resolved (5) Hyperlipidemia: Code(s): E78.5 - Hyperlipidemia, unspecified Status: Chronic Assessment and Plan: * Continue Lipitor Time Spent With Patient Time: ? MEDICAL DECISION MAKING NARRATIVE ? History obtained from: Patient ? History from independent sources: ? External chart review: Lab review ? New problems addressed: Uncontrolled diabetes and hypertension ? Chronic illnesses addressed: HTN/Diabetes ? Independent interpretation of studies: Lab and vital signs ? Comorbidities complicating care: Uncontrolled chronic diseases ? Diagnostic tests considered but not ordered: none ? Risk of complication: High: ? Time spent on encounter: 51 minutes Time with patient: Greater than 35 minutes Subjective Date/time seen: 07/18/22 103 Interval history: 07/18/22 103 Patient was lying in bed and had no complaints today. He did state that he was having a little bit of pain in his foot but it is nothing on terrible. Currently denies any chest pain, shortness a breath, nausea, vomiting, diarrhea or constipation. Not sure if the patient will need long-term antibiotics. 07/17/22 103 Don
[2022-07-18 11:29] LABS: Glucose Point of Care 213 mg/dl (65-105)
--- NOTE | 2022-07-18 12:25 | PM.PNGS ---
Progress Note: A&P Assessment and Plan (1) Open wound of left foot: Code(s): S91.302A - Unspecified open wound, left foot, initial encounter Status: Acute Assessment and Plan: cont local wound care, abx, will ask wound care to see tomorrow, would like to hold off on any further surgery for now Subjective Subjective Date/Time Seen: 07/18/22 12:25 no acute issues overnight, wound unchanged c minimal drainage Review of Systems Review of Systems: All systems reviewed & are unremarkable except as noted in HPI and below Exam Const: General: cooperative, comfortable and no acute distress Resp: Auscultation: clear to auscultation bilaterally Cardio: Rate: regular rate Rhythm: regular rhythm GI: Inspection: normal to inspection Extrem: Other: L foot ulcer unchanged, minimal purulent drainage c expression Objective Data Vital Signs Vital Signs: Vital Signs - 24 hr 07/17/22 14:00 07/17/22 22:00 07/18/22 06:00 Temperature 36.4 C L 36.4 C 36.9 C Pulse Rate 106 H 102 H 99 Respiratory Rate 20 18 18 Blood Pressure 140/81 163/86 H 151/86 H Pulse Oximetry 99 99 99 Oxygen Delivery 07/18/22 08:00 Temperature Pulse Rate Respiratory Rate Blood Pressure Pulse Oximetry Oxygen Delivery Room Air Intake/Output Intake/Output: Intake & Output 07/15/22 07/16/22 07/17/22 07/18/22 23:59 23:59 23:59 23:59 Intake Total 1910 1510 1170 Output Total 625 2300 900 Balance 1285 -790 270 Meds/Results Medications: Active Medications Generic Name Dose Route Start Last Admin Trade Name Freq PRN Reason Stop Dose Admin Acetaminophen 650 mg 07/15/22 23:32 Acetaminophen 325 Mg Tablet PO Q4H PRN Mild Pain (1-3) or Fever Hydrocodone Bitart/Acetaminophen 1 tab 07/15/22 23:32 Hydrocodone/Acetaminophen (*Crx) 5-325 Mg Tablet PO Q4H PRN Pain Rated 4-6 Aspirin 81 mg 07/16/22 09:00 07/18/22 09:07 Aspirin 81 Mg Enteric Tablet PO 81 mg DAILY SAMANTHA Administration Atorvastatin Calcium 40 mg 07/16/22 21:00 07/17/22 20:44 Atorvastatin 40 Mg Tablet PO 40 mg HS SAMANTHA Administration Benzocaine 1 lozenge 07/16/22 14:30 07/18/22 01:10 Benzocaine/Menthol (*Bkc) 18 Ea Lozenge PO 1 lozenge PRN PRN Administration Sore Throat Dextrose 12.5 gm 07/16/22 00:09 Dextrose 50% 25 Gm/50 Ml Syringe IV PUSH PRN PRN Hypoglycemia Protocol Empagliflozin 25 mg 07/18/22 09:00 07/18/22 09:07 Empagliflozin 25 Mg Tablet PO 25 mg QAM SAMANTHA Administration Enoxaparin Sodium 40 mg 07/16/22 09:00 07/18/22 09:06 Enoxaparin 40 Mg/0.4 Ml Syringe SUB-Q 40 mg DAILY SAMANTHA Administration Glucagon 1 mg 07/16/22 00:09 Glucagon For Inj 1 Mg Vial IM PRN PRN Hypoglycemia Protocol Glucose 15 gm 07/16/22 00:09 Glucose Oral Gel 15 Gm Of Glucse In 37.5 Gm Tube PO PRN PRN Hypoglycemia Protocol Hydrochlorothiazide 12.5 mg 07/18/22 09:00 07/18/22 09:07 Hydrochlorothiazide 12.5 Mg Capsule PO 12.5 mg QAM SAMANTHA Administration Cefepime HCl 2 gm in 50 mls @ 100 mls/hr 07/16/22 01:00 07/18/22 10:55 Maxipime 2 Gm/D5w 50 Ml IVPB Infused Q8H SAMANTHA Infusion Metronidazole 500 mg in 100 mls @ 100 mls/hr 07/16/22 00:00 07/18/22 10:06 Flagyl 500 Mg/Iso Soln 100 Ml IVPB Infused Q8H SAMANTHA Infusion Dextrose 1,000 mls @ 100 mls/hr 07/16/22 00:09 Dextrose 5% 1,000 Ml IVPB PRN PRN Hypoglycemia Protocol Vancomycin HCl 2,000 mg in 500 mls @ 250 mls/hr 07/17/22 18:00 07/18/22 12:07 Vancomycin 2,000 Mg/D5w 500 Ml IVPB 250 mls/hr Q18H SAMANTHA Administration Insulin Aspart 4 - 12 units 07/16/22 17:00 07/18/22 12:05 Insulin Aspart (*Bkc) 100 Units/Ml SUB-Q 6 units TIDWM SAMANTHA Administration Protocol Insulin Glargine 26 units 07/16/22 21:00 07/17/22 21:41 Insulin Glargine (*Bkc) 100 Units/Ml 0.2 units/kg (26 units) 26 units SUB-Q Administrat
[2022-07-18 14:00] VITALS: BP 133/79; PULSE 99; RESP 20; TEMP 36.3; O2SAT 100
[2022-07-18 16:24] LABS: Glucose Point of Care 210 mg/dl (65-105)
[2022-07-18] MEDS: INSULIN GLARGINE (*BKC) 100 UNITS/ML 26 UNITS SUB-Q (21:11)
[2022-07-18] MEDS: ATORVASTATIN 40 MG TABLET PO (21:13)
[2022-07-18 21:33] LABS: Glucose Point of Care 175 mg/dl (65-105)
[2022-07-18 21:57] VITALS: BP 144/80; PULSE 97; RESP 20; TEMP 36.4; O2SAT 100
[2022-07-18] MEDS: MELATONIN 5 MG TABLET PO (22:11)
[2022-07-19] MEDS: metroNIDAZOLE 500 MG/ISO 100ML 500 MG/100 ML BAG 100 MG IVPB (00:06)
[2022-07-19 06:00] VITALS: BP 142/84; PULSE 98; RESP 20; TEMP 36.8; O2SAT 97
[2022-07-19 06:36] LABS: Basophils Absolute Auto 0.1 K/mm3 (0.0-0.1); Basophils Percent Auto 0.8 % (0.2-1.2); Eosinophils Absolute Auto 0.5 K/mm3 (0-0.3); Eosinophils Percent Auto 4.8 % (0-4.4); Hematocrit 33.6 % (42.0-52.0); Hemoglobin 11.2 g/dL (14.0-18.0); Immature Granulocyte Absolute 0.05 K/mm3 (0.00-0.031); Immature Granulocyte Percent A 0.5 % (0-0.5); Lymphocytes Absolute Auto 1.46 K/mm3 (0.9-3.2); Lymphocytes Percent Auto 14.2 % (18.3-44.2); Mean Corpuscular HGB Conc 33.3 g/dl (32-36); Mean Platelet Volume 10.3 fl (7.4-10.4); Monocytes Absolute Auto 1.2 K/mm3 (0.1-0.6); Monocytes Percent Auto 11.2 % (2.6-8.5); Neutrophils Percent Auto 68.5 % (45.5-73.1); Platelet Count Result 292 k/mm3 (150-375); Red Cell Distribution Width 13.3 % (11.5-14.5); White Blood Count 10.3 K/mm3 (4.5-10.0)
[2022-07-19 06:45] LABS: Alanine Aminotransferase 24 U/L (6-50); Albumin Level 3.6 g/dL (3.5-5.1); Alkaline Phosphatase 72 U/L (38-126); Anion Gap 6 mmol/L (8-16); Aspartate Amino Transferase 26 U/L (17-59); Bilirubin,Total 0.5 mg/dL (0.2-1.3); Blood Urea Nitrogen 26 mg/dL (9-20); Calcium 8.6 mg/dL (8.4-10.2); Carbon Dioxide 28 mmol/L (22-30); Chloride 104 mmol/L (98-107); Estimated CRCL calculation 91 ml/min; Estimated Glomerular Filt Rate > 60; Glucose 146 mg/dL (65-110); Magnesium 2.1 mg/dL (1.6-2.3); Potassium 3.9 mmol/L (3.4-5.0); Sodium 138 mmol/L (137-145)
[2022-07-19 07:41] LABS: Glucose Point of Care 178 mg/dl (65-105)
[2022-07-19] MEDS: ENOXAPARIN 40 MG/0.4 ML SYRINGE SUB-Q (08:25)
[2022-07-19] MEDS: LOSARTAN POTASSIUM 50 MG TABLET PO (08:26)
[2022-07-19] MEDS: hydroCHLOROthiazide 12.5 MG CAPSULE PO (08:26)
[2022-07-19] MEDS: ASPIRIN 81 MG ENTERIC TABLET PO (08:26)
[2022-07-19] MEDS: EMPAGLIFLOZIN 25 MG TABLET PO (08:26)
[2022-07-19] MEDS: SILVERGEL (ELTA) 45 ML 1 APPLIC TOPICAL (08:27)
[2022-07-19] MEDS: INSULIN ASPART (*BKC) 100 UNITS/ML SUB-Q ×2 (08:29→12:54)
--- NOTE | 2022-07-19 08:45 | PM.DS ---
DS: Admitting Diagnosis Discharge Date 07/19/22 0845 Admitting Diagnosis Diabetic foot ulcer/ early osteomyelitis DS: Discharge Diagnosis Discharge Diagnosis (1) Diabetic foot ulcer: Code(s): E11.621 - Type 2 diabetes mellitus with foot ulcer; L97.509 - Non-pressure chronic ulcer of other part of unspecified foot with unspecified severity Status: Acute Assessment and Plan: Foot xray shows no evidence for osteomyelitis, if concerned consider MRI MRI shows ulceraton plantar to the head of the first metatarsal with sinus tract extending deep to the level of the bipartite tibial sesamoid. Narrow edema and enhancement without loss of T1 signal at the distal moiety of the bipartite sesamoid which remains equivocal for early osteomyelitis vs reactive change, small joint effusion at the firt metatarsophalangeal joint also suspicious for septic arthritis General surgery consulted Continue vancomycin cefepime Flagyl IV day 3 started on 07/15/22, change to PO Levaquin Consult wound care Wound culture moderate WBC, moderate mixed bacterial iglesia WBC stable at 10.3 today Options of surgery vs conservative measures, opted for conservative measures with antibiotics since further amputation is possible (2) Uncontrolled type 2 diabetes circulatory disorder erectile dysfunction: Status: Acute Assessment and Plan: Glucose today 146 A1c 7.4 24 hour roll, 44 Continue Lantus 26 units q.h.s. Add 5 units aspart with meals Add Jardiance Start aspart sliding scale a.c. q.h.s., increase the protocol Hold metformin during hospitalization Adjust medication for better glucose control Hypoglycemia protocol (3) Uncontrolled hypertension: Code(s): I10 - Essential (primary) hypertension Status: Acute Assessment and Plan: BP 142/84 DC amlodipine, hold nifedipine for now Add losartan/HCTZ Continue to trend BP adjust therapy as indicated (4) VEDA (acute kidney injury): Code(s): N17.9 - Acute kidney failure, unspecified Status: Acute Assessment and Plan: Current 15/07.10, GFR >60 Elevated BUN and creatinine above baseline urinalysis does not appear to be infectious Start normal saline IV, DC at this time Trend labs resolved (5) Hyperlipidemia: Code(s): E78.5 - Hyperlipidemia, unspecified Status: Chronic Assessment and Plan: Continue Lipitor DS: Summary Hospital Course Hospital Course: patient is a 61-year-old male with past medical history of type 2 diabetes, diabetic neuropathy, hypertension, hyperlipidemia presented to the ED with complaints of right foot ulcer. Patient stated that he was all started about 10 days ago. Patient did not receive any previous care. Upon arrival patient was noted to be started on vancomycin, cefepime, Flagyl and wound care and seen the patient. Cultures were taken of the purulent drainage which grew MSSA and group B Streptococcus. Patient has been transitioned to p.o. Levaquin. MRI was taken and patient did show possible early signs of osteomyelitis. General surgery was consulted however patient is opted for conservative treatment to avoid any further amputation. Patient was also noted to have an extremely elevated blood pressure. Patient has been started on losartan HCTZ and has been getting nifedipine. Currently blood pressure is better controlled at 142/84. Patient denies any chest pain, shortness a breath, nausea, vomiting, diarrhea or constipation. Glucose has also been controlled and is currently 146. Patient was started on Jardiance for further control of glucose. BUN and creatinine were also noted to be elevated upon arrival patient was started on IV fluids and creatinine has returned back to baseline. Currently patient is stable for discharge for labs and vital signs. Patient will need to continue with wound care accordingl
--- NOTE | 2022-07-19 08:45 | P.DS_ITS ---
DS: Admitting Diagnosis Discharge Date 07/19/22 0845 Admitting Diagnosis Diabetic foot ulcer/ early osteomyelitis DS: Discharge Diagnosis Discharge Diagnosis (1) Diabetic foot ulcer: Code(s): E11.621 - Type 2 diabetes mellitus with foot ulcer; L97.509 - Non-pressure chronic ulcer of other part of unspecified foot with unspecified severity Status: Acute Assessment and Plan: * Foot xray shows no evidence for osteomyelitis, if concerned consider MRI * MRI shows ulceraton plantar to the head of the first metatarsal with sinus tract extending deep to the level of the bipartite tibial sesamoid. Narrow edema and enhancement without loss of T1 signal at the distal moiety of the bipartite sesamoid which remains equivocal for early osteomyelitis vs reactive change, small joint effusion at the firt metatarsophalangeal joint also suspicious for septic arthritis * General surgery consulted * Continue vancomycin cefepime Flagyl IV day 3 started on 07/15/22, change to PO Levaquin * Consult wound care * Wound culture moderate WBC, moderate mixed bacterial iglesia * WBC stable at 10.3 today * Options of surgery vs conservative measures, opted for conservative measures with antibiotics since further amputation is possible (2) Uncontrolled type 2 diabetes circulatory disorder erectile dysfunction: Status: Acute Assessment and Plan: * Glucose today 146 * A1c 7.4 * 24 hour roll, 44 * Continue Lantus 26 units q.h.s. * Add 5 units aspart with meals * Add Jardiance * Start aspart sliding scale a.c. q.h.s., increase the protocol * Hold metformin during hospitalization * Adjust medication for better glucose control * Hypoglycemia protocol (3) Uncontrolled hypertension: Code(s): I10 - Essential (primary) hypertension Status: Acute Assessment and Plan: * BP 142/84 * DC amlodipine, hold nifedipine for now * Add losartan/HCTZ * Continue to trend BP * adjust therapy as indicated (4) VEDA (acute kidney injury): Code(s): N17.9 - Acute kidney failure, unspecified Status: Acute Assessment and Plan: * Current 15/07.10, GFR >60 * Elevated BUN and creatinine above baseline * urinalysis does not appear to be infectious * Start normal saline IV, DC at this time * Trend labs * resolved (5) Hyperlipidemia: Code(s): E78.5 - Hyperlipidemia, unspecified Status: Chronic Assessment and Plan: * Continue Lipitor DS: Summary Hospital Course Hospital Course: patient is a 61-year-old male with past medical history of type 2 diabetes, diabetic neuropathy, hypertension, hyperlipidemia presented to the ED with complaints of right foot ulcer. Patient stated that he was all started about 10 days ago. Patient did not receive any previous care. Upon arrival patient was noted to be started on vancomycin, cefepime, Flagyl and wound care and seen the patient. Cultures were taken of the purulent drainage which grew MSSA and group B Streptococcus. Patient has been transitioned to p.o. Levaquin. MRI was taken and patient did show possible early signs of osteomyelitis. General surgery was consulted however patient is opted for conservative treatment to avoid any further amputation. Patient was also noted to have an extremely elevated blood pressure. Patient has been started on losartan HCTZ and has been getting nifedipine. Currently blood pressure
[2022-07-19 10:10] VITALS: BMI 39.9
--- NOTE | 2022-07-19 10:49 | PM.PNGS ---
Progress Note: A&P Assessment and Plan (1) Diabetic foot ulcer: Code(s): E11.621 - Type 2 diabetes mellitus with foot ulcer; L97.509 - Non-pressure chronic ulcer of other part of unspecified foot with unspecified severity Status: Acute Assessment and Plan: cont local wound care, abx, ok to dc from surgical standpoint, will need to f/u c PCP and podiatry after dc Subjective Subjective Date/Time Seen: 07/19/22 10:49 feels good, no acute issues overnight Review of Systems Review of Systems: All systems reviewed & are unremarkable except as noted in HPI and below Exam Const: General: cooperative, comfortable and no acute distress Resp: Auscultation: clear to auscultation bilaterally Cardio: Rate: regular rate Rhythm: regular rhythm GI: Inspection: normal to inspection Extrem: Other: L foot wound - small amount of serous drainage Objective Data Vital Signs Vital Signs: Vital Signs - 24 hr 07/18/22 14:00 07/18/22 21:57 07/19/22 06:00 Temperature 36.3 C L 36.4 C 36.8 C Pulse Rate 99 97 98 Respiratory Rate 20 20 20 Blood Pressure 133/79 144/80 H 142/84 H Pulse Oximetry 100 100 97 Intake/Output Intake/Output: Intake & Output 07/16/22 07/17/22 07/18/22 07/19/22 23:59 23:59 23:59 23:59 Intake Total 1910 1510 2300 486 Output Total 625 2300 1850 700 Balance 1285 -790 450 -214 Meds/Results Medications: Active Medications Generic Name Dose Route Start Last Admin Trade Name Darinel PRN Reason Stop Dose Admin Acetaminophen 650 mg 07/15/22 23:32 Acetaminophen 325 Mg Tablet PO Q4H PRN Mild Pain (1-3) or Fever Hydrocodone Bitart/Acetaminophen 1 tab 07/15/22 23:32 Hydrocodone/Acetaminophen (*Crx) 5-325 Mg Tablet PO Q4H PRN Pain Rated 4-6 Aspirin 81 mg 07/16/22 09:00 07/19/22 08:26 Aspirin 81 Mg Enteric Tablet PO 81 mg DAILY SAMANTHA Administration Atorvastatin Calcium 40 mg 07/16/22 21:00 07/18/22 21:13 Atorvastatin 40 Mg Tablet PO 40 mg HS SAMANTHA Administration Benzocaine 1 lozenge 07/16/22 14:30 07/18/22 01:10 Benzocaine/Menthol (*Bkc) 18 Ea Lozenge PO 1 lozenge PRN PRN Administration Sore Throat Dextrose 12.5 gm 07/16/22 00:09 Dextrose 50% 25 Gm/50 Ml Syringe IV PUSH PRN PRN Hypoglycemia Protocol Empagliflozin 25 mg 07/18/22 09:00 07/19/22 08:26 Empagliflozin 25 Mg Tablet PO 25 mg QAM SAMANTHA Administration Enoxaparin Sodium 40 mg 07/16/22 09:00 07/19/22 08:25 Enoxaparin 40 Mg/0.4 Ml Syringe SUB-Q 40 mg DAILY SAMANTHA Administration Glucagon 1 mg 07/16/22 00:09 Glucagon For Inj 1 Mg Vial IM PRN PRN Hypoglycemia Protocol Glucose 15 gm 07/16/22 00:09 Glucose Oral Gel 15 Gm Of Glucse In 37.5 Gm Tube PO PRN PRN Hypoglycemia Protocol Hydrochlorothiazide 12.5 mg 07/18/22 09:00 07/19/22 08:26 Hydrochlorothiazide 12.5 Mg Capsule PO 12.5 mg QAM SAMANTHA Administration Dextrose 1,000 mls @ 100 mls/hr 07/16/22 00:09 Dextrose 5% 1,000 Ml IVPB PRN PRN Hypoglycemia Protocol Insulin Aspart 4 - 12 units 07/16/22 17:00 07/19/22 08:29 Insulin Aspart (*Bkc) 100 Units/Ml SUB-Q 4 units TIDWM SAMANTHA Administration Protocol Insulin Glargine 26 units 07/16/22 21:00 07/18/22 21:11 Insulin Glargine (*Bkc) 100 Units/Ml 0.2 units/kg (26 units) 26 units SUB-Q Administration [facility] Levofloxacin 750 mg 07/19/22 09:00 Levofloxacin 750 Mg Tablet PO DAILY SAMANTHA Losartan Potassium 50 mg 07/18/22 09:00 07/19/22 08:26 Losartan Potassium 50 Mg Tablet PO 50 mg DAILY SAMANTHA Administration Nifedipine 30 mg 07/16/22 17:00 07/18/22 09:07 Nifedipine 30 Mg Tab.Er.24 PO 30 mg QAM SAMANTHA Administration Ondansetron HCl 4 mg 07/15/22 23:32 Ondansetron Inj 4 Mg/2 Ml Vial IV PUSH Q4H PRN Nausea Silver Nitrate 1 applic 07/16/22 12:00 07/19/22 08:27 Silvergel (Elta) 45 Ml TOPIC
[2022-07-19] MEDS: levoFLOXacin 750 MG TABLET PO (11:01)
[2022-07-19 11:14] LABS: Glucose Point of Care 170 mg/dl (65-105)
[2022-07-19 14:00] VITALS: BP 134/89; PULSE 100; RESP 12; TEMP 35.8; O2SAT 100
== END 2022-07-19 16:15 | disposition home or self-care (01) | DRG 344 ==
LOC: ANHED 23:40 → ANH3MEDSUR 07-16 09:28
PROVIDERS: Admitting Provider Hospitalist; Emergency Provider Family Medicine; PCP Physician Assistant; Visit Provider Nurse Practitioner
DX: E11.621 Type 2 diabetes mellitus with foot ulcer (principal); M86.172 Other acute osteomyelitis, left ankle and foot; N17.9 Acute kidney failure, unspecified; M00.072 Staphylococcal arthritis, left ankle and foot; E11.42 Type 2 diabetes mellitus with diabetic polyneuropathy; L97.529 Non-pressure chronic ulcer of other part of left foot with unspecified severity; E11.69 Type 2 diabetes mellitus with other specified complication; B95.1 Streptococcus, group B, as the cause of diseases classified elsewhere; B95.61 Methicillin susceptible Staphylococcus aureus infection as the cause of diseases classified elsewhere; N52.1 Erectile dysfunction due to diseases classified elsewhere; I10 Essential (primary) hypertension; E78.5 Hyperlipidemia, unspecified; E66.9 Obesity, unspecified; Z68.39 Body mass index [BMI] 39.0-39.9, adult; Z90.49 Acquired absence of other specified parts of digestive tract; Z89.421 Acquired absence of other right toe(s)
CPT/HCPCS: 36415; 73630; 73720; 80048; 80053; 80202; 81001; 82948; 83036; 83605; 83735; 85025; 86140; 87040; 87070; 87147; 87181; 87186; 87205; 96361; 96365; 96366; 96367; 96372; 96375; 99285; A9270; A9577; G0378; G0379; J0360; J0692; J1650; J1815; J3370; J7030; U0003; U0005

== ENCOUNTER 2024-01-27 19:43 | Inpatient (IN) | payer OTHER, SELFPAY ==
--- NOTE | ~2024-01-27 | XR_ITS ---
XR foot LT min 3V Ordering provider: Jaqueline Hedrick PA-C History: . diabetic foot infection . Comparison: July 15, 2022 FINDINGS: BONES: Fracture of the fifth metatarsal bone. This is most likely pathological. Clinical evaluation a dvised. Sclerotic changes are seen around the proximal third and fourth metatarsal bones most likely post inf lammatory. Missing phalanges of the medial to is noted. JOINT SPACES: Normal. No tarsal coalition. SOFT TISSUES: Soft tissue swelling around the fifth metatarsal bone and in the fifth toe. Soft tissue swelling seen on the dorsum of the foot. Calcaneus spur. Ossification of the insertion of the tendo Achilles. IMPRESSION: Fracture in the fifth metatarsal bone most likely pathological fracture with bony destruction suggest nikolai of infection. Surrounding soft tissue swelling is seen with extension of the swelling to the fift h toe. Reviewed, dictated and finalized at location A. IMPRESSION: Fracture in the fifth metatarsal bone most likely pathological fracture with [place] destruction suggestive of infection. Surrounding soft tissue swelling is see n with extension of the swelling to the fifth toe.
[2024-01-27 19:51] VITALS: BP 135/87; PULSE 105; RESP 18; TEMP 36.7; O2SAT 100
[2024-01-27 21:33] VITALS: BP 133/88; PULSE 98; RESP 13; O2SAT 100
[2024-01-27 21:35] VITALS: BP 133/88; PULSE 73; RESP 18; O2SAT 100
--- NOTE | 2024-01-27 21:52 | ED.EXTPRO ---
HPI - Extremity Problem General Chief complaint: Extremity Problem,Nontraumatic <Jaqueline Hedrick PA-C - Last Filed: 01/28/24 02:49> Stated complaint: LEFT FOOT SWELLING/ULCER <JOSE Gomez Last Filed: 01/28/24 02:49> Time Seen by Provider: 01/27/24 21:22 <Jaqueline Hedrick PA-C - Last Filed: 01/28/24 02:49> Source: patient <JOSE Gomez Last Filed: 01/28/24 02:49> Mode of arrival: ambulatory <JOSE Gomze Last Filed: 01/28/24 02:49> Limitations: no limitations <JOSE Gomez Last Filed: 01/28/24 02:49> History of Present Illness HPI Narrative: this is a 63-year-old male that presents to the emergency department for a foot ulceration. Present over the last 2 weeks. Reports he has had redness, swelling and abnormal drainage. Denies fevers. <Jaqueline Hedrick PA-C - Last Filed: 01/28/24 02:49> Related Data Allergies/Adverse reactions: Allergies Allergy/AdvReac Type Severity Reaction Status Date / Time Penicillins Allergy Mild Hives Verified 01/27/24 21:35 <JOSE Gomez Last Filed: 01/28/24 02:49> Review of Systems Review of Systems: CONSTITUTIONAL: Denies fever SKIN: Reports redness and swelling <JOSE Gomez Last Filed: 01/28/24 02:49> All systems reviewed & are unremarkable except as noted in HPI and below <JOSE Gomez Last Filed: 01/28/24 02:49> [facility] Past Medical History Medical History: Medical History Diabetes mellitus, new onset Diabetic foot ulcer Hyperlipidemia Hypertension <JOSE Gomez Last Filed: 01/28/24 02:49> Surgical History Surgical History: Surgical History Hx laparoscopic cholecystectomy S/P debridement left foot <Jaqueline Hedrick PA-C - Last Filed: 01/28/24 02:49> Family History Family History: Family History Sibling Family history of gallbladder disease Father Family history of chronic obstructive pulmonary disease Diabetes mellitus Mother Family history of heart disease in male family member before age 55 Diabetes mellitus Hypertension Heart disease <Jaqueline Hedrick PA-C - Last Filed: 01/28/24 02:49> Social History Social History: Social History Social History: the patient has 1 son. Who is a durable power [employer] attorney for healthcare. The patient desires to be a full code. 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 He does have girlfriend that helps him out. Patient stated he never smoked. He does not use any illicit drugs or marijuana. Patient stated he has not drink in years. Smoking status: Never smoker Alcohol intake: never Substance use: never Substance use type: does not use Lack of Transportation: No Lack of Food: Never True Current Housing: Decline to Answer Concerned About Future Housing: No Difficulty Paying Gas/Electric Bills: No Difficulty Paying for Meds: No Currently Unemployed: No Education: Decline to Answer Difficulty w/ Childcare or Family Care: No Living arrangements: with family Additional living arrangements comments: Lives in [place]. Never . Occupation/Education: unemployed Gender identity (if verbalized by the patient): Male Sexual Orientation (if Verbalized by the Patient): Straight or Heterosexual Spiritual care concerns: No <Jaqueline Hedrick PA-C - Last Filed: 01/28/24 02:49> Exam Narrative: GENERAL: Well-appearing, well-nourished, and in no acute distress. HEAD: Normocephalic, atraumatic. EYES: EOMI. CHEST: No respiratory distress. HEART: Regular rate EXTREMITIES: Normal range of motion. Normal DP pulse. Edema and erythema extending from a 3cm circular ulceration to the lat
[2024-01-27 22:01] VITALS: BP 138/73; PULSE 68; RESP 16; O2SAT 99
[2024-01-27 22:39] LABS: Basophils Percent Auto 0.3 % (0.2-1.2); Eosinophils Absolute Auto 0.7 K/mm3 (0-0.3); Eosinophils Percent Auto 5.8 % (0-4.4); Hematocrit 30.3 % (42.0-52.0); Hemoglobin 10.1 g/dL (14.0-18.0); Immature Granulocyte Absolute 0.05 K/mm3 (0.00-0.031); Immature Granulocyte Percent A 0.4 % (0-0.5); Lymphocytes Absolute Auto 1.51 K/mm3 (0.9-3.2); Mean Corpuscular HGB Conc 33.3 g/dl (32-36); Mean Corpuscular Hemoglobin 28.3 pg (26-34); Mean Corpuscular Volume 84.9 fl (80-100); Mean Platelet Volume 9.8 fl (7.4-10.4); Monocytes Absolute Auto 1.2 K/mm3 (0.1-0.6); Monocytes Percent Auto 10.7 % (2.6-8.5); Neutrophils Absolute Auto 8.1 K/mm3 (1.3-6.7); Neutrophils Percent Auto 69.8 % (45.5-73.1); Platelet Count Result 308 k/mm3 (150-375); Red Blood Count 3.57 M/mm3 (4.6-6.20); Red Cell Distribution Width 14.6 % (11.5-14.5); White Blood Count 11.6 K/mm3 (4.5-10.0)
--- NOTE | 2024-01-27 22:59 | PC.NURSE ---
this rn contacted phlebotomy to obtain 2nd set of blood cultures.
[2024-01-27 23:00] LABS: Lactic Acid Reflex 0.8 mmol/L (0.7-2.0)
[2024-01-27 23:01] LABS: Alanine Aminotransferase 18 U/L (6-50); Albumin Level 4.3 g/dL (3.5-5.1); Alkaline Phosphatase 72 U/L (38-126); Anion Gap 15 mmol/L (4-12); Aspartate Amino Transferase 26 U/L (17-59); Bilirubin,Total 0.5 mg/dL (0.2-1.3); Blood Urea Nitrogen 54 mg/dL (9-20); Calcium 9.4 mg/dL (8.4-10.2); Carbon Dioxide 19 mmol/L (22-30); Chloride 103 mmol/L (98-107); Estimated CRCL calculation 31 ml/min; Estimated Glomerular Filt Rate 21; Glucose 109 mg/dL (65-110); Potassium 4.5 mmol/L (3.4-5.0); Sodium 137 mmol/L (137-145)
--- NOTE | 2024-01-27 23:41 | PM.IMHP ---
H&P: HPI History of Present Illness Date/Time: 01/27/24 23:41 Chief Complaint: left foot ulcer Narrative: This is a 63-year-old male with past medical history significant for type diabetes mellitus, left diabetic foot, obesity, hypertension chronic kidney disease. Patient presents to the emergency room due to left foot ulcer which significant drainage for the last several days, denies chills, rigors, fevers, generalized malaise, nausea, vomiting, diarrhea. Preliminary workup was significant for a creatinine of 3, BUN 54, foot x-ray shows signs of bone infection. Patient has been admitted for further evaluation management and treatment. XR foot LT min 3V Ordering provider: Jaqueline Hedrick PA-C History: . diabetic foot infection . Comparison: July 15, 2022 FINDINGS: BONES: Fracture of the fifth metatarsal bone. This is most likely pathological. Clinical evaluation advised. Sclerotic changes are seen around the proximal third and fourth metatarsal bones most likely post inflammatory. Missing phalanges of the medial to is noted. JOINT SPACES: Normal. No tarsal coalition. SOFT TISSUES: Soft tissue swelling around the fifth metatarsal bone and in the fifth toe. Soft tissue swelling seen on the dorsum of the foot. Calcaneus spur. Ossification of the insertion of the tendo Achilles. IMPRESSION: Fracture in the fifth metatarsal bone most likely pathological fracture with bony destruction suggestive of infection. Surrounding soft tissue swelling is seen with extension of the swelling to the fifth toe. Review of Systems Review of Systems: Left foot ulcer nonhealing drainage Constitutional: Constitutional: Denies chills, Denies fever(s) and Denies night sweats PMFSH Past Medical History Medical History Diabetes mellitus, new onset Diabetic foot ulcer Hyperlipidemia Hypertension Surgical History Surgical History Hx laparoscopic cholecystectomy S/P debridement left foot Family History Family History Sibling Family history of gallbladder disease Father Family history of chronic obstructive pulmonary disease Diabetes mellitus Mother Family history of heart disease in male family member before age 55 Diabetes mellitus Hypertension Heart disease Social History Social History Social History: the patient has 1 son. Who is a durable power [employer] administrator for healthcare. The patient desires to be a full code. 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 He does have girlfriend that helps him out. Patient stated he never smoked. He does not use any illicit drugs or marijuana. Patient stated he has not drink in years. Smoking status: Never smoker Alcohol intake: former Substance use: never Substance use type: does not use Do You Feel Safe in your Home?: Yes Lack of Transportation: No Lack of Food: Never True Current Housing: Decline to Answer Concerned About Future Housing: No Difficulty Paying Gas/Electric Bills: No Difficulty Paying for Meds: No Currently Unemployed: No Education: Decline to Answer Difficulty w/ Childcare or Family Care: No Living arrangements: with family Additional living arrangements comments: Lives in [place]. Never . Occupation/Education: unemployed Gender identity (if verbalized by the patient): Male Sexual Orientation (if Verbalized by the Patient): Straight or Heterosexual Spiritual care concerns: No Meds Home Medications and Allergies Home Medications Medication Instructions Recorded Confirmed Type aspirin 81 mg tablet,delayed 81 mg PO DAILY #30 tabs 03/21/20 01/28/24 Rx release (Adult Aspirin Regimen) atorvastatin 40 mg tablet 40 mg PO HS #30 tabs 03/21/2001/18
[2024-01-28] VITALS (9 sets, daily range): BP systolic 144–168; BP diastolic 80–94; PULSE 64–92; RESP 12–16; TEMP 36.2–36.4; O2SAT 97–100; BMI 45.6
[2024-01-28] MEDS: CEFEPIME 2 GM/NS 50 ML 2 GM/50 ML BAG IVPB (00:02)
[2024-01-28] MEDS: SODIUM CHLORIDE 0.9% IV 1,000 ML 999 ML IV CONT (00:02)
[2024-01-28 00:17] LABS: Erythrocyte Sedimentation Rate 138 mm/hr (0-20)
[2024-01-28] MEDS: metroNIDAZOLE 500 MG/ISO 100ML 500 MG/100 ML BAG 100 MG IVPB ×4 (01:06→23:07)
[2024-01-28 01:12] LABS: Glucose Point of Care 101 mg/dl (65-105)
[2024-01-28] MEDS: VANCOMYCIN 2,000 MG/NS 500 ML 2,000 MG/500 ML BAG 250 MG IVPB (02:13)
--- NOTE | 2024-01-28 03:04 | ADMGEN ---
This patient, Darin Campos, was admitted to [facility] Surg Room 326-01. Patient/family oriented to hospital policies and general routines including ID bracelet, bed and alarms, visiting hours, pain management, procedures, bathroom and other care routines, personal items, smoking policy, room service/diet, and visiting hours. Information on how to activate the Rapid Response Team has been discussed. Patient/Family are encouraged to report perceived risks to care and to ask questions if they do not understand what they are told or what they should do.
--- NOTE | 2024-01-28 04:47 | PC.NURSE ---
Pt admitted for osteomyelitis stemming from diabetic ulceration on the foot. Upon admission to the unit, pt was asked to change into a hospital gown and remove his shirt and pants. Pt took his shirt off but adamantly refused to remove his pants. I could see from the loose cuff of his pants that pt appears to have cellulitis of the ortega/calf with redness, edema, et al. spreading from the foot to at least half way up his lower leg. Pt was asked again to remove his pants explaining to him that we needed to examine his skin and ascertain whether the infection has spread but he would not remove his pants.
[2024-01-28 06:31] LABS: Estimated CRCL calculation 40 ml/min; Estimated Glomerular Filt Rate 29
[2024-01-28 07:50] LABS: Glucose Point of Care 102 mg/dl (65-105)
--- NOTE | 2024-01-28 08:47 | PM.CNGS ---
Assessment and Plan Assessment and plan (1) Osteomyelitis: Qualifiers: Laterality: left Osteomyelitis location: foot Osteomyelitis type: unspecified type Qualified Code(s): M86.9 - Osteomyelitis, unspecified Code(s): M86.9 - Osteomyelitis, unspecified Status: Acute Assessment and Plan: Will likely need amputation of left 5th toe, discussed with patient, he would like to proceed with IV antibiotics over the weekend before making a decision about amputation (2) Acute kidney injury: Code(s): N17.9 - Acute kidney failure, unspecified Status: Acute Assessment and Plan: continue supportive management with IV hydration, management per primary team (3) Diabetes mellitus: Qualifiers: Diabetes mellitus type: type 2 Diabetes mellitus snf insulin use: without superintendent 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 Diabetes mellitus complication status: with skin complications Diabetes mellitus complication detail: with foot ulcer Qualified Code(s): E11.621 - Type 2 diabetes mellitus with foot ulcer; L97.509 - Non-pressure chronic ulcer of other part of unspecified foot with unspecified severity Code(s): E11.9 - Type 2 diabetes mellitus without complications Status: Acute Assessment and Plan: will need tight blood sugar control given diabetic foot infection History of Present Illness Consult details Consult date: 01/28/24 Reason for consult: wound care Requesting physician: Jaqueline Hedrick PA-C Narrative: The patient is a 63-year-old male with multiple medical issues including severe diabetes, diabetic foot infections presenting to the emergency department complaining of a nonhealing left lower extremity diabetic foot infection. The patient is known to my service from previous left 3rd toe amputation in April of 2020. The patient reports that over the last month or so he has had worsening infection of the left 5th toe and ulceration on the plantar surface. The patient reports over the last few days he has noticed some purulent, foul-smelling drainage. The patient also reports surrounding cellulitis with extension up his foot. The patient denies any systemic symptoms of fevers chills, poor appetite, etc.. Review of Systems Review of Systems: All systems reviewed & are unremarkable except as noted in HPI and below PMFSH Past Medical History Medical History Diabetes mellitus, new onset Diabetic foot ulcer Hyperlipidemia Hypertension Surgical History Surgical History Hx laparoscopic cholecystectomy S/P debridement left foot Family History Family History Sibling Family history of gallbladder disease Father Family history of chronic obstructive pulmonary disease Diabetes mellitus Mother Family history of heart disease in male family member before age 55 Diabetes mellitus Hypertension Heart disease Social History Social History Social History: the patient has 1 son. Who is a durable power civil drafter for healthcare. The patient desires to be a full code. 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 He does have girlfriend that helps him out. Patient stated he never smoked. He does not use any illicit drugs or marijuana. Patient stated he has not drink in years. Smoking status: Never smoker Alcohol intake: former Substance use: never Substance use type: does not use Do You Feel Safe in your Home?: Yes Lack of Transportation: No Lack of Food: Never True Current Housing: Decline to Answer Concerned About Future Housing: No Difficulty Paying Gas/Electric Bills: No Difficulty Paying for Meds: No Currently Unemployed: No Education: Decline to Answer Difficulty w/ Childcare or Family Care: No Living a
[2024-01-28] MEDS: ASPIRIN 81 MG ENTERIC TABLET PO (09:21)
[2024-01-28] MEDS: METOPROLOL SUCCINATE EXT REL 50 MG TABCR PO (09:21)
[2024-01-28] MEDS: EMPAGLIFLOZIN 25 MG TABLET PO (09:22)
--- NOTE | 2024-01-28 10:34 | PM.IMPN ---
Progress Note: A&P Assessment and Plan (1) Osteomyelitis: Qualifiers: Laterality: left Osteomyelitis location: foot Osteomyelitis type: unspecified type Qualified Code(s): M86.9 - Osteomyelitis, unspecified Code(s): M86.9 - Osteomyelitis, unspecified Status: Acute Assessment and Plan: patient started on vancomycin Flagyl and cefepime. cultures in progress. general surgery following and amputation recommended. pt to make decision on surgical intervention in 2 days. Continue abx treatment for now. (2) Acute kidney injury: Code(s): N17.9 - Acute kidney failure, unspecified Status: Acute Assessment and Plan: Pt reports previous Hx of CKD per his PCP and sees a yard operator, last seen nephro 2 days ago and no change in treatment made. continue to hold hydrochlorothiazide and losartan monitor Bun/Cr gentle hydration Avoid nephrotoxic agents. (3) Obesity, morbid, BMI 40.0-49.9: Code(s): E66.01 - Morbid (severe) obesity due to excess calories Status: Chronic Assessment and Plan: lifestyle and diet modifications (4) Cellulitis of foot, left: Code(s): L03.116 - Cellulitis of left lower limb Status: Acute Assessment and Plan: Continue IV abx. Follow cultures. (5) Open wound of left foot: Code(s): S91.302A - Unspecified open wound, left foot, initial encounter Status: Acute Assessment and Plan: general surgery following. Mgt as # 1. Time Spent With Patient Time with patient: 25 - 35 minutes Subjective Date/time seen: 01/28/24 10:05 Interval history: Patient presented to the ER with reports of left 5th toe wound that was draining purulent drainage. XR Left foot showed; Fracture in the fifth metatarsal bone most likely pathological fracture with bony destruction suggestive of infection. Surrounding soft tissue swelling is seen with extension of the swelling to the fifth toe. Patient was started on broad-spectrum IV abx and general surgeon consulted for recommendations. General surgery recommends left 5th toe amputation but pt currently prefers conservative mgt with abx and will make decision on surgical treatment on Tuesday. Review of Systems Review of Systems: Left foot ulcer nonhealing drainage All systems reviewed & are unremarkable except as noted in HPI and below Constitutional: Constitutional: Denies chills, Denies fever(s) and Denies night sweats Exam Narrative: General: Well appearing, no acute distress. HEENT: Atraumatic, PERRL, EOMI, moist mucus membranes. Lungs: Clear bilaterally. Cardiovascular: RRR, S1S2 Gastrointestinal: Soft and non-tender, positive bowel sounds. Skin: Wark, dry and intact. Left 5th toe with open wound on lateral side, yellowish base with brownish drainage. Extremities: No cyanosis, clubbing or edema. Some redness to left lateral foot. Radial and pedal pulses 2+. Neuro: Alert and well oriented. CN II-XII grossly intact. Psych: Pleasant and co-operative. Judgement and insight intact. Const: General: cooperative, comfortable, no acute distress, well developed, alert, awake and obese Nutritional Appearance: obese Orientation/consciousness: patient oriented x3 HENMT: Head: normal to inspection, normocephalic and atraumatic Ears: hearing grossly normal bilaterally Face/Nose/Sinus: normal facial exam Face and sinus: normal facial exam Eyes: General: appearance normal, both eyes and all related structures Pupils: Equal, round and reactive pupils present EOM: EOMs intact bilaterally Neck: Neck: full ROM, no lymphadenopathy and no JVD Thyroid: thyroid normal Lymphatic: no lymphadenopathy noted Resp: Effort & Inspection: normal respiratory effort and able to speak in complete sentences Auscultation: clear to auscultation bilaterally Cardio: Jugular venous distension: no JVD Rate: regular rate Rhythm: regular rhythm Heart sounds: S1 normal heart sound present and S2 no
[2024-01-28] MEDS: SODIUM CHLORIDE 0.9% IV 1,000 ML 100 ML IV CONT ×2 (11:57→23:04)
[2024-01-28 12:00] LABS: Glucose Point of Care 128 mg/dl (65-105)
[2024-01-28 12:11] LABS: NT Pro B Type Natriuretic Pept 399 pg/mL (19.9-100)
[2024-01-28] MEDS: CEFEPIME 1 GM/NS 50 ML 1 GM/50 ML BAG IVPB ×2 (13:03→23:05)
[2024-01-28 17:04] LABS: Glucose Point of Care 104 mg/dl (65-105)
[2024-01-28 20:28] LABS: Glucose Point of Care 113 mg/dl (65-105)
[2024-01-28] MEDS: ATORVASTATIN 40 MG TABLET PO (20:43)
[2024-01-28 22:28] LABS: Vancomycin Random 10.4 ug/mL (10-20)
--- NOTE | 2024-01-29 00:59 | PC.NURSE ---
Vancomycin 1500 mg received from pharmacy at 0058 01/29/24 despite being due at 0000.
[2024-01-29] MEDS: VANCOMYCIN 1,500 MG/NS 500 ML 1,500 MG/500 ML BAG 250 MG IVPB ×2 (01:00→20:23)
[2024-01-29 05:16] VITALS: BP 151/89; PULSE 84; RESP 14; TEMP 36.1; O2SAT 100
[2024-01-29 06:20] LABS: Estimated CRCL calculation 70 ml/min; Estimated Glomerular Filt Rate 56
[2024-01-29 07:39] LABS: Glucose Point of Care 100 mg/dl (65-105)
--- NOTE | 2024-01-29 08:23 | PM.PNGS ---
Progress Note: A&P Assessment and Plan (1) Osteomyelitis: Qualifiers: Laterality: left Osteomyelitis location: foot Osteomyelitis type: unspecified type Qualified Code(s): M86.9 - Osteomyelitis, unspecified Code(s): M86.9 - Osteomyelitis, unspecified Status: Acute Assessment and Plan: improving with local wound care and antibiotics, discussion with patient that he would still likely need amputation, however patient would like to try antibiotic course prior to any surgical intervention Subjective Subjective Date/Time Seen: 01/29/24 08:23 Interval history: feels much improved, reports pain and swelling in L foot largely resolved Review of Systems Review of Systems: All systems reviewed & are unremarkable except as noted in HPI and below Exam Const: General: cooperative, comfortable and no acute distress Resp: Auscultation: clear to auscultation bilaterally Cardio: Rate: regular rate Rhythm: regular rhythm GI: Inspection: normal to inspection Extrem: Other: L foot - drsg C/D/I, decreased induration, cellultitis Objective Data Vital Signs Vital Signs: Vital Signs - 24 hr 01/28/24 09:21 01/28/24 14:00 01/28/24 21:07 Temperature 36.4 C 36.4 C Pulse Rate 86 84 84 Respiratory Rate 14 12 Blood Pressure 146/80 H 144/83 H Pulse Oximetry 98 99 Oxygen Delivery 01/28/24 20:45 01/29/24 05:16 Temperature 36.1 C L Pulse Rate 84 Respiratory Rate 14 Blood Pressure 151/89 H Pulse Oximetry 100 Oxygen Delivery Room Air Intake/Output Intake/Output: Intake & Output 01/26/24 01/27/24 01/28/24 01/29/24 23:59 23:59 23:59 23:59 Intake Total 4444.2 588.3 Output Total 2550 1000 Balance 1894.2 -411.7 Meds/Results Medications: Active Medications Generic Name Dose Route Start Last Admin Trade Name Freq PRN Reason Stop Dose Admin Aspirin 81 mg 01/28/24 09:00 01/28/24 09:21 Aspirin 81 Mg Enteric Tablet PO 81 mg DAILY SAMANTHA Administration Atorvastatin Calcium 40 mg 01/28/24 21:00 01/28/24 20:43 Atorvastatin 40 Mg Tablet PO 40 mg HS SAMANTHA Administration Empagliflozin 25 mg 01/28/24 09:00 01/28/24 09:22 Empagliflozin 25 Mg Tablet PO 25 mg QAM SAMANTHA Administration Cefepime HCl 1 gm in 50 mls @ 100 mls/hr 01/28/24 12:00 01/28/24 23:08 Maxipime 1 Gm/Ns 50 Ml IVPB Infused Q12H SAMANTHA Infusion Metronidazole 500 mg in 100 mls @ 100 mls/hr 01/28/24 09:00 01/29/24 00:08 Flagyl 500 Mg/Iso Soln 100 Ml IVPB Infused Q8H SAMANTHA Infusion Sodium Chloride 1,000 mls @ 100 mls/hr 01/28/24 10:55 01/29/24 01:01 Normal Saline Iv IV CONT 0 mls/hr .Q10H SAMANTHA Infusion Metoprolol Succinate 50 mg 01/28/24 09:00 01/28/24 09:21 Metoprolol Succinate Ext Rel 50 Mg Tabcr PO 50 mg DAILY SAMANTHA Administration Vancomycin HCl 1 each 01/28/24 00:00 Vancomycin For Acute Kidney Injury IVPB PRN PRN Vancomycin Protocol Radiology Results: ITS Impressions Foot X-Ray 01/27/24 22:20 IMPRESSION: Fracture in the fifth metatarsal bone most likely pathological fracture with bony destruction suggestive of infection. Surrounding soft tissue swelling is seen with extension of the swelling to the fifth toe. Labs Labs: Laboratory Results - last 24 hr 01/28/24 01/28/24 01/28/24 05:45 11:52 17:02 Creatinine Estim Creat Clear Calc Estimated GFR POC Capillary Glucose 128 H 104 NT-Pro-B Natriuret Pep 399 H Random Vancomycin 01/28/24 01/28/24 01/29/24 20:24 22:00 05:46 Creatinine 1.30 Estim Creat Clear Calc 70 Estimated GFR 56 L POC Capillary Glucose 113 H NT-Pro-B Natriuret Pep Random Vancomycin 10.4 01/29/24 07:32 Creatinine Estim Creat Clear Calc Estimated GFR POC Capillary Glucose 100 NT-Pro-B Natriuret Pep Random Vancomycin
--- NOTE | 2024-01-29 08:43 | PM.IMPN ---
Progress Note: A&P Assessment and Plan (1) Osteomyelitis: Qualifiers: Laterality: left Osteomyelitis location: foot Osteomyelitis type: unspecified type Qualified Code(s): M86.9 - Osteomyelitis, unspecified Code(s): M86.9 - Osteomyelitis, unspecified Status: Acute Assessment and Plan: patient started on vancomycin Flagyl and cefepime. cultures in progress. general surgery following and amputation recommended. pt to make decision on surgical intervention on tuesday, 01/29-surgery is following Continue abx treatment for now. (2) Acute kidney injury: Code(s): N17.9 - Acute kidney failure, unspecified Status: Acute Assessment and Plan: Pt reports previous Hx of CKD per his PCP and sees a hospitality internship, last seen nephro 2 days ago and no change in treatment made. continue to hold hydrochlorothiazide and losartan monitor Bun/Cr gentle hydration Avoid nephrotoxic agents. (3) Obesity, morbid, BMI 40.0-49.9: Code(s): E66.01 - Morbid (severe) obesity due to excess calories Status: Chronic Assessment and Plan: lifestyle and diet modifications (4) Cellulitis of foot, left: Code(s): L03.116 - Cellulitis of left lower limb Status: Acute Assessment and Plan: Continue IV abx. Follow cultures. (5) Open wound of left foot: Code(s): S91.302A - Unspecified open wound, left foot, initial encounter Status: Acute Assessment and Plan: general surgery following. Mgt as # 1. Time Spent With Patient Time with patient: Greater than 35 minutes Subjective Date/time seen: 01/29/24 08:43 Interval history: Patient presented to the ER with reports of left 5th toe wound that was draining purulent drainage. XR Left foot showed; Fracture in the fifth metatarsal bone most likely pathological fracture with bony destruction suggestive of infection. Surrounding soft tissue swelling is seen with extension of the swelling to the fifth toe. Patient was started on broad-spectrum IV abx and general surgeon consulted for recommendations. General surgery recommends left 5th toe amputation but pt currently prefers conservative mgt with abx and will make decision on surgical treatment on Tuesday. 01/28- pt is seen and examined- general surgery on board- pt prefers conservative measures vs amputations. On Iv Cefepime, flagyl, vanc (tristen dosed) Review of Systems Review of Systems: Left foot ulcer nonhealing drainage All systems reviewed & are unremarkable except as noted in HPI and below Constitutional: Constitutional: Denies chills, Denies fever(s) and Denies night sweats Exam Narrative: General: Well appearing, no acute distress. HEENT: Atraumatic, PERRL, EOMI, moist mucus membranes. Lungs: Clear bilaterally. Cardiovascular: RRR, S1S2 Gastrointestinal: Soft and non-tender, positive bowel sounds. Skin: Wark, dry and intact. Left 5th toe with open wound on lateral side, yellowish base with brownish drainage. Extremities: No cyanosis, clubbing or edema. Some redness to left lateral foot. Radial and pedal pulses 2+. Neuro: Alert and well oriented. CN II-XII grossly intact. Psych: Pleasant and co-operative. Judgement and insight intact. Const: General: cooperative, comfortable, no acute distress, well developed, alert, awake and obese Nutritional Appearance: obese Orientation/consciousness: patient oriented x3 HENMT: Head: normal to inspection, normocephalic and atraumatic Ears: hearing grossly normal bilaterally Face/Nose/Sinus: normal facial exam Face and sinus: normal facial exam Eyes: General: appearance normal, both eyes and all related structures Pupils: Equal, round and reactive pupils present EOM: EOMs intact bilaterally Neck: Neck: full ROM, no lymphadenopathy and no JVD Thyroid: thyroid normal Lymphatic: no lymphadenopathy noted Resp: Effort & Inspection: normal respiratory effort and able to speak in complete sentences Auscultat
[2024-01-29] MEDS: METOPROLOL SUCCINATE EXT REL 50 MG TABCR PO (09:02)
[2024-01-29] MEDS: metroNIDAZOLE 500 MG/ISO 100ML 500 MG/100 ML BAG 100 MG IVPB ×3 (09:02→23:05)
[2024-01-29] MEDS: EMPAGLIFLOZIN 25 MG TABLET PO (09:02)
[2024-01-29] MEDS: ASPIRIN 81 MG ENTERIC TABLET PO (09:02)
[2024-01-29 10:54] LABS: Hematocrit 29.5 % (42.0-52.0); Hemoglobin 9.7 g/dL (14.0-18.0); Mean Corpuscular HGB Conc 32.9 g/dl (32-36); Mean Corpuscular Hemoglobin 28.4 pg (26-34); Mean Corpuscular Volume 86.3 fl (80-100); Mean Platelet Volume 10.2 fl (7.4-10.4); Platelet Count Result 285 k/mm3 (150-375); Red Blood Count 3.42 M/mm3 (4.6-6.20); Red Cell Distribution Width 14.4 % (11.5-14.5); White Blood Count 8.1 K/mm3 (4.5-10.0)
[2024-01-29 11:57] LABS: Glucose Point of Care 133 mg/dl (65-105)
[2024-01-29] MEDS: CEFEPIME 1 GM/NS 50 ML 1 GM/50 ML BAG IVPB ×2 (12:18→23:04)
[2024-01-29 12:52] LABS: Alanine Aminotransferase 14 U/L (6-50); Albumin Level 3.7 g/dL (3.5-5.1); Alkaline Phosphatase 54 U/L (38-126); Anion Gap 13 mmol/L (4-12); Aspartate Amino Transferase 25 U/L (17-59); Bilirubin,Total 0.5 mg/dL (0.2-1.3); Blood Urea Nitrogen 33 mg/dL (9-20); Calcium 8.9 mg/dL (8.4-10.2); Carbon Dioxide 17 mmol/L (22-30); Chloride 106 mmol/L (98-107); Estimated CRCL calculation 65 ml/min; Estimated Glomerular Filt Rate 52; Glucose 94 mg/dL (65-110); Potassium 4.6 mmol/L (3.4-5.0); Sodium 136 mmol/L (137-145)
[2024-01-29 14:00] VITALS: BP 143/90; PULSE 82; RESP 24; TEMP 36.2; O2SAT 99
[2024-01-29 14:13] LABS: Hemoglobin A1C 8.3 % (<5.7)
[2024-01-29 16:52] LABS: Glucose Point of Care 126 mg/dl (65-105)
[2024-01-29] MEDS: SODIUM CHLORIDE 0.9% IV 1,000 ML 100 ML IV CONT (17:35)
[2024-01-29 17:51] LABS: Vancomycin Random 13.1 ug/mL (10-20)
[2024-01-29 20:20] VITALS: BP 176/94; PULSE 84; RESP 16; TEMP 37.1; O2SAT 100
[2024-01-29] MEDS: ATORVASTATIN 40 MG TABLET PO (20:29)
[2024-01-29 20:44] LABS: Glucose Point of Care 112 mg/dl (65-105)
[2024-01-29] MEDS: HYDROcodone/acetaminophen (*CRX) 5-325 MG TABLET 1 TAB PO (20:53)
[2024-01-30] MEDS: MORPHINE SULFATE (*CRX) 4 MG/ML INJ IV PUSH (03:03)
[2024-01-30] MEDS: ACETAMINOPHEN 325 MG TABLET 650 MG PO ×2 (03:03→14:00)
[2024-01-30 04:30] VITALS: BP 173/92; PULSE 80; RESP 20; TEMP 37; O2SAT 99
[2024-01-30 06:36] LABS: Basophils Absolute Auto 0.1 K/mm3 (0.0-0.1); Basophils Percent Auto 0.8 % (0.2-1.2); Eosinophils Absolute Auto 0.5 K/mm3 (0-0.3); Hematocrit 34.2 % (42.0-52.0); Hemoglobin 10.7 g/dL (14.0-18.0); Immature Granulocyte Absolute 0.03 K/mm3 (0.00-0.031); Immature Granulocyte Percent A 0.4 % (0-0.5); Lymphocytes Absolute Auto 1.59 K/mm3 (0.9-3.2); Lymphocytes Percent Auto 20.8 % (18.3-44.2); Mean Corpuscular HGB Conc 31.3 g/dl (32-36); Mean Corpuscular Hemoglobin 27.6 pg (26-34); Mean Corpuscular Volume 88.4 fl (80-100); Mean Platelet Volume 9.8 fl (7.4-10.4); Monocytes Absolute Auto 0.9 K/mm3 (0.1-0.6); Monocytes Percent Auto 11.2 % (2.6-8.5); Neutrophils Absolute Auto 4.7 K/mm3 (1.3-6.7); Neutrophils Percent Auto 60.8 % (45.5-73.1); Platelet Count Result 297 k/mm3 (150-375); Red Blood Count 3.87 M/mm3 (4.6-6.20); Red Cell Distribution Width 14.3 % (11.5-14.5); White Blood Count 7.7 K/mm3 (4.5-10.0)
[2024-01-30 06:52] LABS: Alanine Aminotransferase 16 U/L (6-50); Alkaline Phosphatase 61 U/L (38-126); Anion Gap 12 mmol/L (4-12); Aspartate Amino Transferase 24 U/L (17-59); Bilirubin,Total 0.4 mg/dL (0.2-1.3); Blood Urea Nitrogen 26 mg/dL (9-20); Calcium 8.7 mg/dL (8.4-10.2); Carbon Dioxide 20 mmol/L (22-30); Chloride 106 mmol/L (98-107); Estimated CRCL calculation 76 ml/min; Estimated Glomerular Filt Rate > 60; Glucose 92 mg/dL (65-110); Magnesium 1.9 mg/dL (1.6-2.3); Potassium 4.4 mmol/L (3.4-5.0); Sodium 138 mmol/L (137-145)
[2024-01-30 07:46] LABS: Glucose Point of Care 82 mg/dl (65-105)
[2024-01-30] MEDS: EMPAGLIFLOZIN 25 MG TABLET PO (08:04)
[2024-01-30] MEDS: METOPROLOL SUCCINATE EXT REL 50 MG TABCR PO (08:05)
[2024-01-30] MEDS: ASPIRIN 81 MG ENTERIC TABLET PO (08:05)
[2024-01-30] MEDS: metroNIDAZOLE 500 MG/ISO 100ML 500 MG/100 ML BAG 100 MG IVPB ×3 (08:05→23:57)
--- NOTE | 2024-01-30 11:28 | PM.PNGS ---
Progress Note: A&P Assessment and Plan (1) Osteomyelitis: Qualifiers: Laterality: left Osteomyelitis location: foot Osteomyelitis type: unspecified type Qualified Code(s): M86.9 - Osteomyelitis, unspecified Code(s): M86.9 - Osteomyelitis, unspecified Status: Acute Assessment and Plan: pt wants to proceed c conservative mgmt c local wound care and IV abx x 6 wks, will setup for PICC and abx, f/u c WCC p dc Subjective Subjective Date/Time Seen: 01/30/24 11:28 Interval history: no acute issues, reports he feel pretty good Review of Systems Review of Systems: All systems reviewed & are unremarkable except as noted in HPI and below Exam Const: General: cooperative, comfortable and no acute distress Resp: Auscultation: clear to auscultation bilaterally Cardio: Rate: regular rate Rhythm: regular rhythm GI: Inspection: normal to inspection and non-distended GI Palp: No abdominal tenderness Extrem: Other: L foot - wound largely unchanged, still c some grayish drainage, cellulitis and induration improved Objective Data Vital Signs Vital Signs: Vital Signs - 24 hr 01/29/24 14:00 01/29/24 20:00 01/29/24 20:20 Temperature 36.2 C L 37.1 C Pulse Rate 82 84 Respiratory Rate 24 H 16 Blood Pressure 143/90 H 176/94 H Pulse Oximetry 99 100 Oxygen Delivery Room Air 01/30/24 04:30 Temperature 37.0 C Pulse Rate 80 Respiratory Rate 20 Blood Pressure 173/92 H Pulse Oximetry 99 Oxygen Delivery Intake/Output Intake/Output: Intake & Output 01/27/24 01/28/24 01/29/24 01/30/24 23:59 23:59 23:59 23:59 Intake Total 4444.2 1556.7 820 Output Total 2550 2870 900 Balance 1894.2 -1313.3 -80 Meds/Results Medications: Active Medications Generic Name Dose Route Start Last Admin Trade Name Freq PRN Reason Stop Dose Admin Acetaminophen 650 mg 01/29/24 21:03 01/30/24 03:03 Acetaminophen 325 Mg Tablet PO 650 mg Q4H PRN Administration Mild Pain (1-3) or Fever Hydrocodone Bitart/Acetaminophen 1 tab 01/29/24 21:03 Hydrocodone/Acetaminophen (*Crx) 5-325 Mg Tablet PO Q4H PRN Pain Rated 4-6 Aspirin 81 mg 01/28/24 09:00 01/30/24 08:05 Aspirin 81 Mg Enteric Tablet PO 81 mg DAILY SAMANTHA Administration Atorvastatin Calcium 40 mg 01/28/24 21:00 01/29/24 20:29 Atorvastatin 40 Mg Tablet PO 40 mg HS SAMANTHA Administration Empagliflozin 25 mg 01/28/24 09:00 01/30/24 08:04 Empagliflozin 25 Mg Tablet PO 25 mg QAM SAMANTHA Administration Cefepime HCl 1 gm in 50 mls @ 100 mls/hr 01/28/24 12:00 01/30/24 00:11 Maxipime 1 Gm/Ns 50 Ml IVPB Infused Q12H SAMANTHA Infusion Metronidazole 500 mg in 100 mls @ 100 mls/hr 01/28/24 09:00 01/30/24 08:05 Flagyl 500 Mg/Iso Soln 100 Ml IVPB 100 mls/hr Q8H SAMANTHA Administration Sodium Chloride 1,000 mls @ 100 mls/hr 01/28/24 10:55 01/30/24 00:42 Normal Saline Iv IV CONT Not Given .Q10H SAMANTHA Metoprolol Succinate 50 mg 01/28/24 09:00 01/30/24 08:05 Metoprolol Succinate Ext Rel 50 Mg Tabcr PO 50 mg DAILY SAMANTHA Administration Morphine Sulfate 4 mg 01/29/24 21:03 01/30/24 03:03 Morphine Sulfate (*Crx) 4 Mg/Ml Inj IV PUSH 4 mg Q4H PRN Administration Pain Rated 7-10 Vancomycin HCl 1 each 01/28/24 00:00 Vancomycin For Acute Kidney Injury IVPB PRN PRN Vancomycin Protocol Radiology Results: ITS Impressions Foot X-Ray 01/27/24 22:20 IMPRESSION: Fracture in the fifth metatarsal bone most likely pathological fracture with bony destruction suggestive of infection. Surrounding soft tissue swelling is seen with extension of the swelling to the fifth toe. Labs Labs: Laboratory Results - last 24 hr 01/29/24 01/29/24 01/29/24 05:46 11:48 16:46 WBC RBC Hgb Hct MCV MCH MCHC RDW Plt Count MPV Immature Gran % (Auto) Neut % (Auto) Lymph % (Auto) Barron % (Auto) Eos % (
[2024-01-30] MEDS: CEFEPIME 1 GM/NS 50 ML 1 GM/50 ML BAG IVPB ×2 (11:42→13:57)
[2024-01-30 11:50] VITALS: BMI 45.6
[2024-01-30 11:54] LABS: Glucose Point of Care 107 mg/dl (65-105)
[2024-01-30 12:05] LABS: Vancomycin Random 15.1 ug/mL (10-20)
[2024-01-30 14:00] VITALS: BP 166/92; PULSE 85; RESP 17; TEMP 36.3; O2SAT 100
--- NOTE | 2024-01-30 14:44 | PM.IMPN ---
Progress Note: A&P Assessment and Plan (1) Osteomyelitis: Qualifiers: Laterality: left Osteomyelitis location: foot Osteomyelitis type: unspecified type Qualified Code(s): M86.9 - Osteomyelitis, unspecified Code(s): M86.9 - Osteomyelitis, unspecified Status: Acute Assessment and Plan: patient started on vancomycin Flagyl and cefepime. cultures in progress. general surgery following and amputation recommended. pt to make decision on surgical intervention on tuesday, 01/29-surgery is following Continue abx treatment for now. 01/30/24: After speaking with pt he has interest in re-thinking his decision about possible amputation. He would like to think about it overnight. General surgery continuing to follow. Flagyl has been discontinued after discussing with ID pharmacist. WBC's normal at 7.7. Wound cultures from left foot have grown out Staph aureus and Group B Strep. Awaiting sensitivities. Blood cultures remain negative. (2) Acute kidney injury: Code(s): N17.9 - Acute kidney failure, unspecified Status: Acute Assessment and Plan: Pt reports previous Hx of CKD per his PCP and sees a clinical research tech, last seen nephro 2 days ago and no change in treatment made. continue to hold hydrochlorothiazide and losartan monitor Bun/Cr gentle hydration Avoid nephrotoxic agents. 01/30/24: Renal function is normal today with Cr/BUN at 1.20/26 and GFR of >60. Continue to monitor renal function with daily labs. Avoid nephrotoxic agents unless necessary. (3) Obesity, morbid, BMI 40.0-49.9: Code(s): E66.01 - Morbid (severe) obesity due to excess calories Status: Chronic Assessment and Plan: 01/30/24: Recommend lifestyle and diet changes. (4) Cellulitis of foot, left: Code(s): L03.116 - Cellulitis of left lower limb Status: Acute Assessment and Plan: Continue IV abx. Follow cultures. 01/30/24: See Problem and plan for #1. (5) Open wound of left foot: Code(s): S91.302A - Unspecified open wound, left foot, initial encounter Status: Acute Assessment and Plan: general surgery following. Mgt as # 1. 01/30/24: See problem and plan for #1. Time Spent With Patient Time with patient: 25 - 35 minutes Subjective Date/time seen: 01/30/24 14:44 Interval history: This very pleasant 63 year old male pt was examined at the bedside today in interval assessment since he was admitted to the hospital with Osteomyelitis of the left foot. He had decided earlier that he would like to do the outpatient abx for 6 weeks and forego amputation that has been recommended per surgery. Pt is now second guessing himself and would like another day to think about it. PICC is due to be placed tomorrow if indeed needed. He states overall he feels better and improved but realizes he is going to have limited help at home to do IV abx. No new complaints, symptoms or concerns to report today. Review of Systems Review of Systems: All systems reviewed & are unremarkable except as noted in HPI and below Exam Narrative: General: Well appearing, obese male pt sitting up in bed at this time in no acute distress. HEENT: Atraumatic, PERRL, EOMI, moist mucus membranes. Lungs: Clear bilaterally. Cardiovascular: RRR, S1S2 Gastrointestinal: Soft and non-tender, positive bowel sounds. Skin: Warm, dry and intact. Left 5th toe with open wound on lateral side, yellowish base with brownish drainage. Extremities: No cyanosis, clubbing or edema. Some redness to left lateral foot. Radial and pedal pulses 2+. Neuro: Alert and well oriented. CN II-XII grossly intact. Psych: Pleasant and co-operative. Judgement and insight intact. Objective Data Vital Signs Vital Signs: Vital Signs - 24 hr 01/29/24 20:00 01/29/24 20:20 01/30/24 04:30 Temperature 98.7 F 98.6 F Pulse Rate 84 80 Respiratory Rate 16 20 Blood Pressure 176/94 H 173/92 H Pulse Oximetry 100
[2024-01-30] MEDS: VANCOMYCIN 1,500 MG/NS 500 ML 1,500 MG/500 ML BAG 125 MG IVPB (15:15)
[2024-01-30] MEDS: SODIUM CHLORIDE 0.9% IV 1,000 ML 100 ML IV CONT (16:38)
[2024-01-30 18:12] LABS: Glucose Point of Care 106 mg/dl (65-105)
[2024-01-30 20:36] LABS: Glucose Point of Care 130 mg/dl (65-105)
[2024-01-30] MEDS: CEFEPIME 2 GM/NS 50 ML 2 GM/50 ML BAG IVPB (21:21)
[2024-01-30] MEDS: ATORVASTATIN 40 MG TABLET PO (21:21)
[2024-01-30 21:35] VITALS: BP 155/85; PULSE 81; RESP 14; TEMP 36.2; O2SAT 99
[2024-01-31] MEDS: SODIUM CHLORIDE 0.9% IV 1,000 ML 100 ML IV CONT ×2 (04:44→17:12)
[2024-01-31 05:42] VITALS: BP 166/80; PULSE 84; RESP 14; TEMP 36.9; O2SAT 100
[2024-01-31 07:06] LABS: Basophils Absolute Auto 0.1 K/mm3 (0.0-0.1); Basophils Percent Auto 0.7 % (0.2-1.2); Eosinophils Absolute Auto 0.4 K/mm3 (0-0.3); Eosinophils Percent Auto 4.6 % (0-4.4); Hemoglobin 10.3 g/dL (14.0-18.0); Immature Granulocyte Absolute 0.03 K/mm3 (0.00-0.031); Immature Granulocyte Percent A 0.4 % (0-0.5); Lymphocytes Absolute Auto 1.38 K/mm3 (0.9-3.2); Lymphocytes Percent Auto 16.7 % (18.3-44.2); Mean Corpuscular HGB Conc 33.2 g/dl (32-36); Mean Corpuscular Hemoglobin 28.2 pg (26-34); Mean Corpuscular Volume 84.9 fl (80-100); Monocytes Absolute Auto 0.9 K/mm3 (0.1-0.6); Neutrophils Absolute Auto 5.5 K/mm3 (1.3-6.7); Neutrophils Percent Auto 66.6 % (45.5-73.1); Platelet Count Result 264 k/mm3 (150-375); Red Blood Count 3.65 M/mm3 (4.6-6.20); Red Cell Distribution Width 14.1 % (11.5-14.5); White Blood Count 8.3 K/mm3 (4.5-10.0)
[2024-01-31 07:13] LABS: Alanine Aminotransferase 13 U/L (6-50); Albumin Level 3.6 g/dL (3.5-5.1); Alkaline Phosphatase 54 U/L (38-126); Anion Gap 10 mmol/L (4-12); Aspartate Amino Transferase 21 U/L (17-59); Bilirubin,Total 0.4 mg/dL (0.2-1.3); Blood Urea Nitrogen 22 mg/dL (9-20); Calcium 8.6 mg/dL (8.4-10.2); Carbon Dioxide 23 mmol/L (22-30); Chloride 105 mmol/L (98-107); Estimated CRCL calculation 76 ml/min; Estimated Glomerular Filt Rate > 60; Glucose 91 mg/dL (65-110); Magnesium 1.8 mg/dL (1.6-2.3); Potassium 4.4 mmol/L (3.4-5.0); Sodium 138 mmol/L (137-145)
[2024-01-31 07:35] LABS: Glucose Point of Care 102 mg/dl (65-105)
[2024-01-31 08:00] VITALS: O2SAT 100
[2024-01-31] MEDS: metroNIDAZOLE 500 MG/ISO 100ML 500 MG/100 ML BAG 100 MG IVPB (08:21)
[2024-01-31 08:23] VITALS: PULSE 80
[2024-01-31] MEDS: EMPAGLIFLOZIN 25 MG TABLET PO (08:23)
[2024-01-31] MEDS: METOPROLOL SUCCINATE EXT REL 50 MG TABCR PO (08:23)
[2024-01-31] MEDS: CEFEPIME 2 GM/NS 50 ML 2 GM/50 ML BAG IVPB (09:23)
--- NOTE | 2024-01-31 09:38 | PC.NURSE ---
Montserrat Dominguez WASTEWATER DESIGN ENGINEER notified of holding am aspirin due to possible surgery.
[2024-01-31] MEDS: VANCOMYCIN 1,500 MG/NS 500 ML 1,500 MG/500 ML BAG 200 MG IVPB (10:05)
--- NOTE | 2024-01-31 11:12 | PM.IMPN ---
Progress Note: A&P Assessment and Plan (1) Osteomyelitis: Qualifiers: Laterality: left Osteomyelitis location: foot Osteomyelitis type: unspecified type Qualified Code(s): M86.9 - Osteomyelitis, unspecified Code(s): M86.9 - Osteomyelitis, unspecified Status: Acute Assessment and Plan: patient started on vancomycin Flagyl and cefepime. cultures in progress. general surgery following and amputation recommended. pt to make decision on surgical intervention on tuesday, 01/29-surgery is following Continue abx treatment for now. 01/30/24: After speaking with pt he has interest in re-thinking his decision about possible amputation. He would like to think about it overnight. General surgery continuing to follow. Flagyl has been discontinued after discussing with ID pharmacist. WBC's normal at 7.7. Wound cultures from left foot have grown out Staph aureus and Group B Strep. Awaiting sensitivities. Blood cultures remain negative. 01/31/24: Pt sensitivities have resulted and there is pansensitivity. Pt has decided he wants to go through with amputation. Dr. Ann has been notified and he is coming to talk to pt about it today. (2) Acute kidney injury: Code(s): N17.9 - Acute kidney failure, unspecified Status: Acute Assessment and Plan: Pt reports previous Hx of CKD per his PCP and sees a coat padder, last seen nephro 2 days ago and no change in treatment made. continue to hold hydrochlorothiazide and losartan monitor Bun/Cr gentle hydration Avoid nephrotoxic agents. 01/30/24: Renal function is normal today with Cr/BUN at 1.20/26 and GFR of >60. Continue to monitor renal function with daily labs. Avoid nephrotoxic agents unless necessary. 01/31/24: Stable renal function. Continue current plan. (3) Obesity, morbid, BMI 40.0-49.9: Code(s): E66.01 - Morbid (severe) obesity due to excess calories Status: Chronic Assessment and Plan: 01/30/24: Recommend lifestyle and diet changes. (4) Cellulitis of foot, left: Code(s): L03.116 - Cellulitis of left lower limb Status: Acute Assessment and Plan: Continue IV abx. Follow cultures. 01/30/24: See Problem and plan for #1. 01/31/24: Continue plan for #1. (5) Open wound of left foot: Code(s): S91.302A - Unspecified open wound, left foot, initial encounter Status: Acute Assessment and Plan: general surgery following. Mgt as # 1. 01/30/24: See problem and plan for #1. 01/31/24: Continue plan for #1. Time Spent With Patient Time with patient: 15 - 25 minutes Subjective Date/time seen: 01/31/24 1000 Interval history: This pt is examined at the bedside today in interval assessment. He has been thinking overnight about whether or not he will be able to do IV abx at home or whether or not he wants to proceed with surgery. At this time he is considering surgery as he has no one who could help him at home. We have reached out to Dr. Ann and he is coming in to see pt this afternoon and discuss surgery further. He has no new complaints or concerns today. Review of Systems Review of Systems: All systems reviewed & are unremarkable except as noted in HPI and below Exam Narrative: General: Well appearing, obese male pt sitting up in bed at this time in no acute distress. HEENT: Atraumatic, PERRL, EOMI, moist mucus membranes. Lungs: Clear bilaterally. Cardiovascular: RRR, S1S2 Gastrointestinal: Soft and non-tender, positive bowel sounds. Skin: Warm, dry and intact. Left 5th toe with open wound on lateral side, yellowish base with brownish drainage. Extremities: No cyanosis, clubbing or edema. Some redness to left lateral foot. Radial and pedal pulses 2+. Neuro: Alert and well oriented. CN II-XII grossly intact. Psych: Pleasant and co-operative. Judgement and insight intact. Objective Data Vital Signs Vital Signs: Vital Signs - 24 hr 01/30/24 14:
[2024-01-31 11:27] LABS: Glucose Point of Care 111 mg/dl (65-105)
--- NOTE | 2024-01-31 13:09 | PM.PNGS ---
Progress Note: A&P Assessment and Plan (1) Open wound of left foot: Code(s): S91.302A - Unspecified open wound, left foot, initial encounter Status: Acute Assessment and Plan: will setup for complex debridement and washout of L diabetic foot wound, possible amputation of 5th toe, discussed with the patient detail and he wishes to proceed, continue local wound care and antibiotics for now Subjective Subjective Date/Time Seen: 01/31/24 13:09 Interval history: feels good, would like surgical debridement of wound at this point Review of Systems Review of Systems: All systems reviewed & are unremarkable except as noted in HPI and below Exam Const: General: cooperative, comfortable and no acute distress Resp: Auscultation: clear to auscultation bilaterally Cardio: Rate: regular rate Rhythm: regular rhythm GI: Inspection: normal to inspection Extrem: Other: L foot - cellulitis and inflammation largely resolved, open wound on planter surface metatarsal 5th toe, some purulent drainage Objective Data Vital Signs Vital Signs: Vital Signs - 24 hr 01/30/24 14:00 01/30/24 21:35 01/30/24 20:00 Temperature 36.3 C L 36.2 C L Pulse Rate 85 81 Respiratory Rate 17 14 Blood Pressure 166/92 H 155/85 H Pulse Oximetry 100 99 Oxygen Delivery Room Air 01/31/24 05:42 01/31/24 08:23 01/31/24 08:00 Temperature 36.9 C Pulse Rate 84 80 Respiratory Rate 14 Blood Pressure 166/80 H Pulse Oximetry 100 100 Oxygen Delivery Room Air Intake/Output Intake/Output: Intake & Output 01/28/24 01/29/24 01/30/24 01/31/24 23:59 23:59 23:59 23:59 Intake Total 4444.2 1556.7 3266.6 2256 Output Total 2550 2870 2450 2200 Balance 1894.2 -1313.3 816.6 56 Meds/Results Medications: Active Medications Generic Name Dose Route Start Last Admin Trade Name Freq PRN Reason Stop Dose Admin Acetaminophen 650 mg 01/29/24 21:03 01/30/24 14:00 Acetaminophen 325 Mg Tablet PO 650 mg Q4H PRN Administration Mild Pain (1-3) or Fever Hydrocodone Bitart/Acetaminophen 1 tab 01/29/24 21:03 Hydrocodone/Acetaminophen (*Crx) 5-325 Mg Tablet PO Q4H PRN Pain Rated 4-6 Aspirin 81 mg 01/28/24 09:00 01/31/24 09:38 Aspirin 81 Mg Enteric Tablet PO Not Given DAILY SAMANTHA Atorvastatin Calcium 40 mg 01/28/24 21:00 01/30/24 21:21 Atorvastatin 40 Mg Tablet PO 40 mg HS SAMANTHA Administration Empagliflozin 25 mg 01/28/24 09:00 01/31/24 08:23 Empagliflozin 25 Mg Tablet PO 25 mg QAM SAMANTHA Administration Sodium Chloride 1,000 mls @ 100 mls/hr 01/28/24 10:55 01/31/24 04:44 Normal Saline Iv IV CONT 100 mls/hr .Q10H SAMANTHA Administration Ceftriaxone Sodium 2 gm in 100 mls @ 200 mls/hr 01/31/24 21:00 Rocephin 2 Gm/Ns 100 Ml IVPB Q24H SAMANTHA Metoprolol Succinate 50 mg 01/28/24 09:00 01/31/24 08:23 Metoprolol Succinate Ext Rel 50 Mg Tabcr PO 50 mg DAILY SAMANTHA Administration Morphine Sulfate 4 mg 01/29/24 21:03 01/30/24 03:03 Morphine Sulfate (*Crx) 4 Mg/Ml Inj IV PUSH 4 mg Q4H PRN Administration Pain Rated 7-10 Radiology Results: ITS Impressions Foot X-Ray 01/27/24 22:20 IMPRESSION: Fracture in the fifth metatarsal bone most likely pathological fracture with bony destruction suggestive of infection. Surrounding soft tissue swelling is seen with extension of the swelling to the fifth toe. Labs Labs: Laboratory Results - last 24 hr 01/30/24 01/30/24 01/31/24 16:07 19:48 06:32 WBC 8.3 RBC 3.65 L Hgb 10.3 L Hct 31.0 L MCV 84.9 MCH 28.2 MCHC 33.2 RDW 14.1 Plt Count 264 MPV 10.0 Immature Gran % (Auto) 0.4 Neut % (Auto) 66.6 Lymph % (Auto) 16.7 L [place] % (Auto) 11.0 H Eos % (Auto) 4.6 H Baso % (Auto) 0.7 Lymph # (Auto) 1.38 [place] # (Auto) 0.9 H Eos # (Auto) 0.4 H Baso # (Auto) 0.1 Abs Immat Gran (auto) 0.03 Absolute Neuts (auto) 5.5
[2024-01-31 13:59] VITALS: BP 146/96; PULSE 84; RESP 18; TEMP 36.6; O2SAT 100
[2024-01-31 16:27] LABS: Glucose Point of Care 99 mg/dl (65-105)
[2024-01-31] MEDS: cefTRIAXone 2 GM/NS 100 ML 2 GM/100 ML BAG IVPB (20:08)
[2024-01-31] MEDS: ATORVASTATIN 40 MG TABLET PO (20:08)
[2024-01-31 20:53] LABS: Glucose Point of Care 143 mg/dl (65-105)
[2024-01-31 21:29] VITALS: BP 167/90; PULSE 80; RESP 14; TEMP 36.2; O2SAT 100
[2024-02-01] VITALS (15 sets, daily range): BP systolic 147–194; BP diastolic 80–100; PULSE 62–92; RESP 12–18; TEMP 36.1–36.9; O2SAT 98–100
[2024-02-01] MEDS: SODIUM CHLORIDE 0.9% IV 1,000 ML 100 ML IV CONT (05:12)
[2024-02-01 07:09] LABS: Basophils Absolute Auto 0.1 K/mm3 (0.0-0.1); Basophils Percent Auto 0.6 % (0.2-1.2); Eosinophils Absolute Auto 0.4 K/mm3 (0-0.3); Eosinophils Percent Auto 4.2 % (0-4.4); Hematocrit 31.5 % (42.0-52.0); Hemoglobin 10.5 g/dL (14.0-18.0); Immature Granulocyte Absolute 0.07 K/mm3 (0.00-0.031); Immature Granulocyte Percent A 0.7 % (0-0.5); Lymphocytes Absolute Auto 1.52 K/mm3 (0.9-3.2); Lymphocytes Percent Auto 16.1 % (18.3-44.2); Mean Corpuscular HGB Conc 33.3 g/dl (32-36); Mean Corpuscular Hemoglobin 28.5 pg (26-34); Mean Corpuscular Volume 85.4 fl (80-100); Mean Platelet Volume 9.9 fl (7.4-10.4); Monocytes Absolute Auto 1.1 K/mm3 (0.1-0.6); Monocytes Percent Auto 11.1 % (2.6-8.5); Neutrophils Absolute Auto 6.4 K/mm3 (1.3-6.7); Neutrophils Percent Auto 67.3 % (45.5-73.1); Platelet Count Result 260 k/mm3 (150-375); Red Blood Count 3.69 M/mm3 (4.6-6.20); Red Cell Distribution Width 14.1 % (11.5-14.5); White Blood Count 9.5 K/mm3 (4.5-10.0)
[2024-02-01 07:13] LABS: Alanine Aminotransferase 14 U/L (6-50); Albumin Level 3.8 g/dL (3.5-5.1); Alkaline Phosphatase 56 U/L (38-126); Anion Gap 10 mmol/L (4-12); Aspartate Amino Transferase 24 U/L (17-59); Bilirubin,Total 0.3 mg/dL (0.2-1.3); Blood Urea Nitrogen 21 mg/dL (9-20); Calcium 8.5 mg/dL (8.4-10.2); Carbon Dioxide 24 mmol/L (22-30); Chloride 104 mmol/L (98-107); Estimated CRCL calculation 76 ml/min; Estimated Glomerular Filt Rate > 60; Glucose 98 mg/dL (65-110); Magnesium 1.9 mg/dL (1.6-2.3); Potassium 4.4 mmol/L (3.4-5.0); Sodium 138 mmol/L (137-145)
[2024-02-01 07:45] LABS: Glucose Point of Care 91 mg/dl (65-105)
[2024-02-01] MEDS: METOPROLOL SUCCINATE EXT REL 50 MG TABCR PO (09:20)
--- NOTE | 2024-02-01 09:59 | WPDHPUPDATE1 ---
History and Physical Update Update Date/Time: 02/01/24 09:59 History and Physical has been reviewed, including an updated exam of the patient. There are NO changes in the patient's condition. Risks, benefits, and alternatives have been discussed and questions answered. Patient agrees to proceed with procedure.
[2024-02-01 11:59] LABS: Glucose Point of Care 97 mg/dl (65-105)
[2024-02-01] MEDS: LACTATED RINGERS 1,000 ML 30 ML IV CONT (12:30)
--- NOTE | 2024-02-01 13:15 | WPDANESEPPF ---
Anes - Initial Pre Proc Eval Procedure: Operation Date: 02/01/24 13:00 Proposed Procedures p Debridment Left Lower Extremity Diabetic Foot Ulcer - Josephine Ann MD Date/Time: 02/01/24 13:15 Surgeon: JESUS Armas Pre Op Diagnosis: Osteomyelitis Patient Data Age: 63 Gender: M Height: 1.7 m Weight: 132.3 kg Last Vital Signs Temp 97.6 F 02/01/24 05:55 Pulse 85 02/01/24 09:20 Resp 13 02/01/24 05:55 BP 160/80 H 02/01/24 05:55 Pulse Ox 100 02/01/24 05:55 O2 Del Method Room Air 01/31/24 08:00 Allergies Allergy/AdvReac Type Severity Reaction Status Date / Time Penicillins Allergy Mild Hives Verified 01/31/24 12:37 Home Medications Medication Instructions Recorded Confirmed Type aspirin 81 mg tablet,delayed 81 mg PO DAILY #30 tabs 03/21/20 01/28/24 Rx release (Adult Aspirin Regimen) atorvastatin 40 mg tablet 40 mg PO HS #30 tabs 03/21/20 01/28/24 Rx metformin 500 mg tablet 500 mg PO BIDWM #60 tabs 03/21/20 01/28/24 Rx (Glucophage) blood sugar diagnostic (OneTouch #1 pkg 07/19/22 01/28/24 Rx Verio test strips) blood-glucose meter (OneTouch #1 pkg 07/19/22 01/28/24 Rx Verio Flex Meter) empagliflozin 25 mg tablet 25 mg PO QAM #30 tabs 07/19/22 01/28/24 Rx (Jardiance) lancets 30 gauge (OneTouch Delica #1 pkg 07/19/22 01/28/24 Rx Plus Lancet) losartan 50 mg-hydrochlorothiazide 1 tablet PO DAILY #30 tabs 07/19/22 01/28/24 Rx 12.5 mg tablet metoprolol succinate 50 mg 50 mg PO DAILY #30 tabs 07/19/22 01/28/24 Rx tablet,extended release 24 hr Laboratory Tests 01/31/24 01/31/24 02/01/24 16:19 19:50 06:18 WBC 9.5 K/mm3 (4.5-10.0) RBC 3.69 L M/mm3 (4.6-6.20) Hgb 10.5 L g/dL (14.0-18.0) Hct 31.5 L % (42.0-52.0) MCV 85.4 fl (80-100) MCH 28.5 pg (26-34) MCHC 33.3 g/dl (32-36) RDW 14.1 % (11.5-14.5) Plt Count 260 k/mm3 (150-375) MPV 9.9 fl (7.4-10.4) Immature Gran % (Auto) 0.7 H % (0-0.5) Neut % (Auto) 67.3 % (45.5-73.1) Lymph % (Auto) 16.1 L % (18.3-44.2) [place] % (Auto) 11.1 H % (2.6-8.5) Eos % (Auto) 4.2 % (0-4.4) Baso % (Auto) 0.6 % (0.2-1.2) Lymph # (Auto) 1.52 K/mm3 (0.9-3.2) [place] # (Auto) 1.1 H K/mm3 (0.1-0.6) Eos # (Auto) 0.4 H K/mm3 (0-0.3) Baso # (Auto) 0.1 K/mm3 (0.0-0.1) Abs Immat Gran (auto) 0.07 H K/mm3 (0.00-0.031) Absolute Neuts (auto) 6.4 K/mm3 (1.3-6.7) Absolute Nucleated RBC 0.000 K/mm3 (0.0-0.012) Nucleated RBC % 0.0 % (0.0-0.2) Sodium 138 mmol/L (137-145) Potassium 4.4 mmol/L (3.4-5.0) Chloride 104 mmol/L (98-107) Carbon Dioxide 24 mmol/L (22-30) Anion Gap 10 mmol/L (4-12) BUN 21 H mg/dL (9-20) Creatinine 1.20 mg/dL (0.7-1.3) Estim Creat Clear Calc 76 ml/min Estimated GFR > 60 (59 - ) Glucose 98 mg/dL (65-110) POC Capillary Glucose 99 mg/dl 143 H mg/dl (65-105) (65-105) Calcium 8.5 mg/dL (8.4-10.2) Magnesium 1.9 mg/dL (1.6-2.3) Total Bilirubin 0.3 mg/dL (0.2-1.3) AST 24 U/L (17-59) ALT 14 U/L (6-50) Alkaline Phosphatase 56 U/L (38-126) Total Protein 8.0 g/dL (6.3-8.2) Albumin 3.8 g/dL (3.5-5.1) 02/01/24 02/01/24 07:30 11:36 WBC RBC Hgb Hct MCV MCH MCHC RDW Plt Count MPV Immature Gran % (Auto) Neut % (Auto) Lymph % (Auto) [place] % (Auto) Eos % (Auto) Baso % (Auto) Lymph # (Auto) [place] # (Auto) Eos # (Auto) Baso # (Auto) Abs Immat
[2024-02-01] MEDS: BUPIVACAINE/EPINEPHRINE 0.5% 10 ML VIAL 15 ML INFILTRATE (13:34)
[2024-02-01 14:16] LABS: Glucose Point of Care 88 mg/dl (65-105)
--- NOTE | 2024-02-01 14:32 | W.PM.PROC2 ---
Procedure Note - Detailed Date of Procedure 02/01/24 Pre-op Diagnosis Left foot diabetic foot wound Post-op Diagnosis Same Procedure Performed complex debridement washout of left foot diabetic foot wound measuring 5 x 3 x 2 cm with extension into the bone Surgeon Josephine Ann MD Anesthesia MAC and Local Indications 63-year-old male presenting to the hospital with a worsening left foot diabetic foot wound. Noted to have foul smelling, purulent drainage from the wound. Findings Lateral plantar surface diabetic foot wound measuring 5 x 3 x 2 cm with extension into the bone Description of Procedure The patient was taken to the operating room and placed in the supine position. After adequate induction of MAC anesthesia, the patient was prepped and draped in the normal sterile fashion. A time-out was then done to the patient's identity, as well as the procedure being performed. I began by localizing the area in and around this wound on the plantar surface of the lateral foot. This was noted to be over the metatarsal area of the 5th toe. I then began debriding the necrotic tissue overlying the wound. This was noted to include liquified necrosis of the subcutaneous tissue and the dermis. This wound extended down to the area of the bone. The bone was noted to be friable. There was noted to be an area free-floating bone that was removed. Once the area was completely opened and drained, and measured 5 x 3 x 2 cm. No obvious undrained cavity was noted. I then copiously irrigated out the wound. I then packed the wound with half-inch iodoform, approximately 2 and half yd, to be the wound open and draining. The patient tolerated the procedure well and was alert and awake in the operating room postoperatively. He will be transferred to the recovery room in stable condition. Estimated Blood Loss 10 Drains No Packing Yes Pathology None sent Complications No immediate complications Condition Stable Disposition PACU [facility] Billing Surgery - Charge Forward: Surgery Billing
[2024-02-01] MEDS: hydrALAZINE HCL 20 MG/ML VIAL 5 MG IV PUSH ×2 (15:06→15:22)
[2024-02-01 16:57] LABS: Glucose Point of Care 74 mg/dl (65-105)
--- NOTE | 2024-02-01 19:19 | P.PNIM_ITS ---
Progress Note: A&P Assessment and Plan (1) Osteomyelitis: Qualifiers: Laterality: left Osteomyelitis location: foot Osteomyelitis type: unspecified type Qualified Code(s): M86.9 - Osteomyelitis, unspecified Code(s): M86.9 - Osteomyelitis, unspecified Status: Acute Assessment and Plan: patient started on vancomycin Flagyl and cefepime. cultures in progress. general surgery following and amputation recommended. pt to make decision on surgical intervention on tuesday, 01/29-surgery is following Continue abx treatment for now. 01/30/24: * After speaking with pt he has interest in re-thinking his decision about po ssible amputation. He would like to think about it overnight. * General surgery continuing to follow. * Flagyl has been discontinued after discussing with ID pharmacist. * WBC's normal at 7.7. * Wound cultures from left foot have grown out Staph aureus and Group B Strep. Awaiting sensitivities. * Blood cultures remain negative. 01/31/24: * Pt sensitivities have resulted and there is pansensitivity. * Pt has decided he wants to go through with amputation. Dr. Ann has been notified and he is coming to talk to pt about it today. 02/01/24: * Scheduled for surgery later today. * Continue IV abx for now. 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 continue to hold hydrochlorothiazide and losartan monitor Bun/Cr gentle hydration Avoid nephrotoxic agents. 01/30/24: * Renal function is normal today with Cr/BUN at 1.20/26 and GFR of >60. * Continue to monitor renal function with daily labs. * Avoid nephrotoxic agents unless necessary. 01/31/24: * Stable renal function. Continue current plan. * 02/01/24: - Kidney function stable. - Monitor closely with IV abx. (3) Obesity, morbid, BMI 40.0-49.9: Code(s): E66.01 - Morbid (severe) obesity due to excess calories Status: Chronic Assessment and Plan: 01/30/24: * Recommend lifestyle and diet changes. (4) Cellulitis of foot, left: Code(s): L03.116 - Cellulitis of left lower limb Status: Acute Assessment and Plan: Continue IV abx. Follow cultures. 01/30/24: * See Problem and plan for #1. 01/31/24: * Continue plan for #1. (5) Open wound of left foot: Code(s): S91.302A - Unspecified open wound, left foot, initial encounter Status: Acute Assessment and Plan: general surgery following. Mgt as # 1. 01/30/24: * See problem and plan for #1. 01/31/24: * Continue plan for #1. Time Spent With Patient Time with patient: 25 - 35 minutes Subjective Date/time seen: 02/01/24 10:19 Interval history: Patient calm on bedrest. Denies any distressful symptoms and reports he's ready for surgery later today. Review of Systems Review of Systems: All systems reviewed & are unremarkable except as noted in HPI and below Constitutional: Constitutional: Denies chills, Denies fever(s) and Denies night sweats Exam Narrative: General: Well appearing, obese male pt on bedrest. HEENT: Atraumatic, PERRL, EOMI, moist mucus membranes. Lungs: Clear bilaterally. Cardiovascular: RRR, S1S2 Gastrointestinal: Soft and non-tender, positive bowel sounds. Skin: Warm, dry and intact. Cl
--- NOTE | 2024-02-01 19:19 | PM.IMPN ---
Progress Note: A&P Assessment and Plan (1) Osteomyelitis: Qualifiers: Laterality: left Osteomyelitis location: foot Osteomyelitis type: unspecified type Qualified Code(s): M86.9 - Osteomyelitis, unspecified Code(s): M86.9 - Osteomyelitis, unspecified Status: Acute Assessment and Plan: patient started on vancomycin Flagyl and cefepime. cultures in progress. general surgery following and amputation recommended. pt to make decision on surgical intervention on tuesday, 01/29-surgery is following Continue abx treatment for now. 01/30/24: After speaking with pt he has interest in re-thinking his decision about possible amputation. He would like to think about it overnight. General surgery continuing to follow. Flagyl has been discontinued after discussing with ID pharmacist. WBC's normal at 7.7. Wound cultures from left foot have grown out Staph aureus and Group B Strep. Awaiting sensitivities. Blood cultures remain negative. 01/31/24: Pt sensitivities have resulted and there is pansensitivity. Pt has decided he wants to go through with amputation. Dr. Ann has been notified and he is coming to talk to pt about it today. 02/01/24: Scheduled for surgery later today. Continue IV abx for now. (2) Acute kidney injury: Code(s): N17.9 - Acute kidney failure, unspecified Status: Acute Assessment and Plan: Pt reports previous Hx of CKD per his PCP and sees a certified medical dosimetrist, last seen nephro 2 days ago and no change in treatment made. continue to hold hydrochlorothiazide and losartan monitor Bun/Cr gentle hydration Avoid nephrotoxic agents. 01/30/24: Renal function is normal today with Cr/BUN at 1.20/26 and GFR of >60. Continue to monitor renal function with daily labs. Avoid nephrotoxic agents unless necessary. 01/31/24: Stable renal function. Continue current plan. 02/01/24: - Kidney function stable. - Monitor closely with IV abx. (3) Obesity, morbid, BMI 40.0-49.9: Code(s): E66.01 - Morbid (severe) obesity due to excess calories Status: Chronic Assessment and Plan: 01/30/24: Recommend lifestyle and diet changes. (4) Cellulitis of foot, left: Code(s): L03.116 - Cellulitis of left lower limb Status: Acute Assessment and Plan: Continue IV abx. Follow cultures. 01/30/24: See Problem and plan for #1. 01/31/24: Continue plan for #1. (5) Open wound of left foot: Code(s): S91.302A - Unspecified open wound, left foot, initial encounter Status: Acute Assessment and Plan: general surgery following. Mgt as # 1. 01/30/24: See problem and plan for #1. 01/31/24: Continue plan for #1. Time Spent With Patient Time with patient: 25 - 35 minutes Subjective Date/time seen: 02/01/24 10:19 Interval history: Patient calm on bedrest. Denies any distressful symptoms and reports he's ready for surgery later today. Review of Systems Review of Systems: All systems reviewed & are unremarkable except as noted in HPI and below Constitutional: Constitutional: Denies chills, Denies fever(s) and Denies night sweats Exam Narrative: General: Well appearing, obese male pt on bedrest. HEENT: Atraumatic, PERRL, EOMI, moist mucus membranes. Lungs: Clear bilaterally. Cardiovascular: RRR, S1S2 Gastrointestinal: Soft and non-tender, positive bowel sounds. Skin: Warm, dry and intact. Clean, dry and intact dressing to left foot. Extremities: No cyanosis, clubbing or edema. Radial and pedal pulses 2+. Neuro: Alert and well oriented. CN II-XII grossly intact. Psych: Pleasant and co-operative. Judgement and insight intact. Const: General: cooperative, comfortable, no acute distress, well developed, alert, awake and obese Nutritional Appearance: obese Orientation/consciousness: patient oriented x3 HENMT: Head: normal to inspection, normocephalic and atraumatic Ears: hearing grossly normal bilateral
[2024-02-01] MEDS: ATORVASTATIN 40 MG TABLET PO (20:44)
[2024-02-01] MEDS: cefTRIAXone 2 GM/NS 100 ML 2 GM/100 ML BAG IVPB (20:44)
[2024-02-01] MEDS: ACETAMINOPHEN 325 MG TABLET 650 MG PO (20:46)
[2024-02-02] MEDS: SODIUM CHLORIDE 0.9% IV 1,000 ML 100 ML IV CONT (03:43)
[2024-02-02 05:50] VITALS: BP 173/91; PULSE 75; RESP 20; TEMP 36.3; O2SAT 100
[2024-02-02 06:02] LABS: Basophils Absolute Auto 0.1 K/mm3 (0.0-0.1); Basophils Percent Auto 0.7 % (0.2-1.2); Eosinophils Absolute Auto 0.2 K/mm3 (0-0.3); Eosinophils Percent Auto 2.5 % (0-4.4); Hemoglobin 10.4 g/dL (14.0-18.0); Immature Granulocyte Absolute 0.05 K/mm3 (0.00-0.031); Immature Granulocyte Percent A 0.6 % (0-0.5); Lymphocytes Percent Auto 14.8 % (18.3-44.2); Mean Corpuscular HGB Conc 32.5 g/dl (32-36); Mean Corpuscular Hemoglobin 27.9 pg (26-34); Mean Corpuscular Volume 85.8 fl (80-100); Mean Platelet Volume 9.5 fl (7.4-10.4); Monocytes Absolute Auto 0.9 K/mm3 (0.1-0.6); Monocytes Percent Auto 10.3 % (2.6-8.5); Neutrophils Absolute Auto 6.3 K/mm3 (1.3-6.7); Neutrophils Percent Auto 71.1 % (45.5-73.1); Platelet Count Result 259 k/mm3 (150-375); Red Blood Count 3.73 M/mm3 (4.6-6.20); Red Cell Distribution Width 14.4 % (11.5-14.5); White Blood Count 8.8 K/mm3 (4.5-10.0)
[2024-02-02 06:14] LABS: Alanine Aminotransferase 16 U/L (6-50); Albumin Level 3.6 g/dL (3.5-5.1); Alkaline Phosphatase 52 U/L (38-126); Anion Gap 9 mmol/L (4-12); Aspartate Amino Transferase 31 U/L (17-59); Bilirubin,Total 0.3 mg/dL (0.2-1.3); Blood Urea Nitrogen 19 mg/dL (9-20); Calcium 8.3 mg/dL (8.4-10.2); Carbon Dioxide 25 mmol/L (22-30); Chloride 104 mmol/L (98-107); Estimated CRCL calculation 76 ml/min; Estimated Glomerular Filt Rate > 60; Glucose 92 mg/dL (65-110); Magnesium 1.9 mg/dL (1.6-2.3); Potassium 4.1 mmol/L (3.4-5.0); Sodium 138 mmol/L (137-145)
[2024-02-02 07:43] LABS: Glucose Point of Care 97 mg/dl (65-105)
--- NOTE | 2024-02-02 08:43 | PM.PNGS ---
Progress Note: A&P Assessment and Plan (1) Diabetic foot ulcer: Code(s): E11.621 - Type 2 diabetes mellitus with foot ulcer; L97.509 - Non-pressure chronic ulcer of other part of unspecified foot with unspecified severity Status: Acute Assessment and Plan: s/p debridement and washout, cont local wound care, ?vac, will need home health and abx, f/u c [facility] Subjective Subjective Date/Time Seen: 02/02/24 08:43 Interval history: feels good, no c/o Review of Systems Review of Systems: All systems reviewed & are unremarkable except as noted in HPI and below Exam Const: General: cooperative, comfortable and no acute distress Resp: Auscultation: clear to auscultation bilaterally Cardio: Rate: regular rate Rhythm: regular rhythm GI: Inspection: normal to inspection Extrem: Other: L foot - dressing C/D/I Objective Data Vital Signs Vital Signs: Vital Signs - 24 hr 02/01/24 09:20 02/01/24 12:07 02/01/24 14:11 Temperature 36.4 C L 36.6 C Pulse Rate 85 79 75 Respiratory Rate 18 12 Blood Pressure 159/97 H 158/98 H Pulse Oximetry 100 100 Oxygen Delivery Room Air Room Air 02/01/24 14:25 02/01/24 14:40 02/01/24 14:55 Temperature Pulse Rate 68 68 62 Respiratory Rate 12 13 13 Blood Pressure 177/92 H 192/96 H 194/100 H Pulse Oximetry 100 100 100 Oxygen Delivery Room Air Room Air Room Air 02/01/24 15:10 02/01/24 15:22 02/01/24 15:25 Temperature Pulse Rate 69 70 Respiratory Rate 15 15 Blood Pressure 187/96 H 180/100 H 176/97 H Pulse Oximetry 100 100 Oxygen Delivery Room Air Room Air 02/01/24 15:40 02/01/24 16:50 02/01/24 17:05 Temperature 36.3 C L 36.3 C L 36.1 C L Pulse Rate 74 76 80 Respiratory Rate 12 18 18 Blood Pressure 176/96 H 157/85 H 156/92 H Pulse Oximetry 100 100 100 Oxygen Delivery Room Air 02/01/24 17:35 02/01/24 21:10 02/02/24 05:50 Temperature 36.2 C L 36.9 C 36.3 C L Pulse Rate 92 75 75 Respiratory Rate 18 16 20 Blood Pressure 147/88 H 153/89 H 173/91 H Pulse Oximetry 100 98 100 Oxygen Delivery Intake/Output Intake/Output: Intake & Output 01/30/24 01/31/24 02/01/24 02/02/24 23:59 23:59 23:59 23:59 Intake Total 3266.6 4316 2418 125 Output Total 2450 2510 2175 1725 Balance 816.6 1806 243 -1600 Meds/Results Medications: Active Medications Generic Name Dose Route Start Last Admin Trade Name Freq PRN Reason Stop Dose Admin Acetaminophen 650 mg 01/29/24 21:03 02/01/24 20:46 Acetaminophen 325 Mg Tablet PO 650 mg Q4H PRN Administration Mild Pain (1-3) or Fever Hydrocodone Bitart/Acetaminophen 1 tab 01/29/24 21:03 Hydrocodone/Acetaminophen (*Crx) 5-325 Mg Tablet PO Q4H PRN Pain Rated 4-6 Hydrocodone Bitart/Acetaminophen 1 tab 02/01/24 15:46 Hydrocodone/Acetaminophen (*Crx) 5-325 Mg Tablet PO Q4H PRN Pain Rated 4-6 Aspirin 81 mg 01/28/24 09:00 02/01/24 09:29 Aspirin 81 Mg Enteric Tablet PO Not Given DAILY SAMANTHA Atorvastatin Calcium 40 mg 01/28/24 21:00 02/01/24 20:44 Atorvastatin 40 Mg Tablet PO 40 mg HS SAMANTHA Administration Empagliflozin 25 mg 01/28/24 09:00 02/01/24 09:29 Empagliflozin 25 Mg Tablet PO Not Given QAM SAMANTHA Sodium Chloride 1,000 mls @ 100 mls/hr 01/28/24 10:55 02/02/24 03:43 Normal Saline Iv IV CONT 100 mls/hr .Q10H SAMANTHA Administration Ceftriaxone Sodium 2 gm in 100 mls @ 200 mls/hr 01/31/24 21:00 02/01/24 21:14 Rocephin 2 Gm/Ns 100 Ml IVPB Infused Q24H SAMANTHA Infusion Metoprolol Succinate 50 mg 01/28/24 09:00 02/01/24 09:20 Metoprolol Succinate Ext Rel 50 Mg Tabcr PO 50 mg DAILY SAMANTHA Administration Morphine Sulfate 4 mg 01/29/24 21:03 01/30/24 03:03 Morphine Sulfate (*Crx) 4 Mg/Ml Inj IV PUSH 4 mg Q4H PRN Administration Pain Rated 7-10 Radiology Results: ITS Impressions Foot X-Ray 01/27/24 22:20 IMPRESSION: Fracture in the fifth metatarsal bone most likely pathologi
[2024-02-02 08:56] VITALS: PULSE 84
[2024-02-02] MEDS: ASPIRIN 81 MG ENTERIC TABLET PO (08:56)
[2024-02-02] MEDS: METOPROLOL SUCCINATE EXT REL 50 MG TABCR PO (08:56)
[2024-02-02] MEDS: EMPAGLIFLOZIN 25 MG TABLET PO (08:56)
[2024-02-02 11:50] LABS: Glucose Point of Care 130 mg/dl (65-105)
--- NOTE | 2024-02-02 13:16 | PM.DS ---
DS: Admitting Diagnosis Discharge Date 02/02/24 Admitting Diagnosis Infected right-foot diabetic ulcer DS: Discharge Diagnosis Discharge Diagnosis (1) Osteomyelitis: Qualifiers: Laterality: left Osteomyelitis location: foot Osteomyelitis type: unspecified type Qualified Code(s): M86.9 - Osteomyelitis, unspecified Code(s): M86.9 - Osteomyelitis, unspecified Status: Acute Assessment and Plan: 01/30/24: After speaking with pt he has interest in re-thinking his decision about possible amputation. He would like to think about it overnight. General surgery continuing to follow. Flagyl has been discontinued after discussing with ID pharmacist. WBC's normal at 7.7. Wound cultures from left foot have grown out Staph aureus and Group B Strep. Awaiting sensitivities. Blood cultures remain negative. 01/31/24: Pt sensitivities have resulted and there is pansensitivity. Pt has decided he wants to go through with amputation. Dr. Ann has been notified and he is coming to talk to pt about it today. 02/01/24: Scheduled for surgery later today. Continue IV abx for now. 02/02/24: Patient s/p debridement and washout. Wound-cultures growing Group-B strep and Staph. aureus pansensitive. Patient being discharged on Clindamycin per sensitivities. Follow-up at wound-clinic as patient scheduler per general surgery. Patient stable for d/c and cleared per general surgery. (2) Diabetic foot ulcer: Code(s): E11.621 - Type 2 diabetes mellitus with foot ulcer; L97.509 - Non-pressure chronic ulcer of other part of unspecified foot with unspecified severity Status: Acute Assessment and Plan: - s/p wound debridement and washout. - Mgt as above. - Outpatient f/u with general surgery. 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 continue to hold hydrochlorothiazide and losartan monitor Bun/Cr gentle hydration Avoid nephrotoxic agents. 01/30/24: Renal function is normal today with Cr/BUN at 1.20/26 and GFR of >60. Continue to monitor renal function with daily labs. Avoid nephrotoxic agents unless necessary. 01/31/24: Stable renal function. Continue current plan. 02/01/24: - Kidney function stable. - Monitor closely with IV abx. 02/02/24: - Resolved prior to discharge. (4) Obesity, morbid, BMI 40.0-49.9: Code(s): E66.01 - Morbid (severe) obesity due to excess calories Status: Chronic Assessment and Plan: 02/02/24: Recommend lifestyle and diet changes. (5) Cellulitis of foot, left: Code(s): L03.116 - Cellulitis of left lower limb Status: Acute Assessment and Plan: - Mgt as # 1. - Discharged on PO clindamycin. Plan Patient medically stable for discharge home and has been cleared per general surgery who will f/u with pt outpatient. Patient discharged on Clindamycin per wound-culture sensitivities. Patient declined home health and stated family would assist with wound care. DS: Summary Hospital Course Reason for hospitalization: Infected Diabetic Wound, Right Foot. Hospital Course: Patient was admitted with infected diabetic wound to his right foot. X-Ray right foot showed Fracture in the fifth metatarsal bone most likely pathological fracture with bony destruction suggestive of infection. Surrounding soft tissue swelling is seen with extension of the swelling to the fifth toe. Patient was initially started on IV Vancomycin, Ceftriaxone and Flagyl. After discussion with general surgery, wound resection with debridement was recommended and done successfully. Patient's blood cultures were negative, with wound-cultures growing staph aureus and Group-B strep, pansensitive. Patient was discharged on oral Clindamycin to complete antibiotics dk
== END 2024-02-02 13:30 | disposition home or self-care (01) | DRG 314 ==
LOC: ANHED 22:32 → ANH3MEDSUR 01-28 02:18
PROVIDERS: Nurse Practitioner; Nurse Practitioner Adult Health; Surgery; Admitting Provider Internal Medicine; Emergency Provider Physician Assistant; PCP Physician Assistant; Visit Provider Nurse Practitioner Adult Health
PROC: 0JBR0ZZ Excision of Left Foot Subcutaneous Tissue and Fascia, Open Approach (ICD-10-PCS; principal; 2024-02-01 13:00)
DX: E11.621 Type 2 diabetes mellitus with foot ulcer (principal); M86.9 Osteomyelitis, unspecified; N17.9 Acute kidney failure, unspecified; L97.529 Non-pressure chronic ulcer of other part of left foot with unspecified severity; M84.675A Pathological fracture in other disease, left foot, initial encounter for fracture; E11.69 Type 2 diabetes mellitus with other specified complication; I12.9 Hypertensive chronic kidney disease with stage 1 through stage 4 chronic kidney disease, or unspecified chronic kidney disease; N18.9 Chronic kidney disease, unspecified; E11.22 Type 2 diabetes mellitus with diabetic chronic kidney disease; E66.01 Morbid (severe) obesity due to excess calories; L03.116 Cellulitis of left lower limb; E78.5 Hyperlipidemia, unspecified; Z79.82 Long term (current) use of aspirin; Z79.4 Long term (current) use of insulin; Z68.42 Body mass index [BMI] 45.0-49.9, adult; Z89.422 Acquired absence of other left toe(s)
CPT/HCPCS: 36415; 73630; 80053; 80202; 82565; 82948; 83036; 83605; 83735; 83880; 85025; 85027; 85652; 86140; 87040; 87070; 87077; 87081; 87181; 87205; 96365; 96366; 96367; 96376; 99285; A9270; G0378; J0360; J0692; J0696; J1836; J2250; J2270; J2405; J2704; J3010; J3370; J7030; J7120

== ENCOUNTER 2024-04-04 07:28 | Outpatient (RCR) | payer OTHER, SELFPAY ==
[2024-02-15 09:00] VITALS: BMI 45.3
--- NOTE | 2024-02-15 10:01 | WPDWOUNDNOTE ---
Wound Care Note Date/Time: 02/15/24 10:01 History: feels much better, no further foot pain, has completed abx, no s/s active infection per pt Wound history: s/p complex debridement Wound width: 1.9 Wound length: 1.4 Wound depth: 1.5 Drainage: serous Surrounding tissue appearance: healthy Tunneling: slight superior Percentage granulation tissue: 100 Assessment and Plan Assessment and plan (1) Diabetic foot ulcer: Code(s): E11.621 - Type 2 diabetes mellitus with foot ulcer; L97.509 - Non-pressure chronic ulcer of other part of unspecified foot with unspecified severity Status: Acute Assessment and Plan: cont local wound care, f/u 4 wks Review of Systems Review of Systems: All systems reviewed & are unremarkable except as noted in HPI and below Exam Const: General: cooperative, comfortable and no acute distress Resp: Auscultation: clear to auscultation bilaterally Cardio: Rate: regular rate Rhythm: regular rhythm GI: Inspection: normal to inspection
--- NOTE | 2024-03-14 10:22 | PCWOUND ---
WOCN NOTE Patient did not show up for appointment today.
--- NOTE | 2024-04-04 09:53 | WPDWOUNDNOTE ---
Wound Care Note Date/Time: 04/04/24 09:53 History: Pt reports no issues, wound seems to be healing well. No s/s infection, no drainage, no f/c. Wound history: s/p complex debridement, washout 01/31 Wound width: 0.4 cm Wound length: 0.4 cm Wound depth: 0.2 cm Drainage: minimal serous Surrounding tissue appearance: healthy, viable Tunneling: none Percentage granulation tissue: 100 Treatment/Procedures: silver gel Assessment and Plan Assessment and plan (1) Diabetic foot ulcer: Code(s): E11.621 - Type 2 diabetes mellitus with foot ulcer; L97.509 - Non-pressure chronic ulcer of other part of unspecified foot with unspecified severity Status: Acute Assessment and Plan: wound is pretty much healed at this point, cont local wound care, f/u prn Review of Systems Review of Systems: All systems reviewed & are unremarkable except as noted in HPI and below Exam Const: General: cooperative, comfortable and no acute distress Resp: Auscultation: clear to auscultation bilaterally Cardio: Rate: regular rate Rhythm: regular rhythm GI: Inspection: normal to inspection
== END 2024-04-30 08:29 | disposition home or self-care (01) ==
LOC: ANHWOC 07:28
PROVIDERS: PCP Physician Assistant; Visit Provider Surgery
DX: E11.621 Type 2 diabetes mellitus with foot ulcer (principal); L97.529 Non-pressure chronic ulcer of other part of left foot with unspecified severity
CPT/HCPCS: 99213; 99214; G0463